=== PATIENT | female | born 1950 | race Two or more races ===

== ENCOUNTER 2020-04-15 12:42 | Outpatient (REF) | payer MEDICARE, MEDICAID, SELFPAY ==
--- NOTE | 2020-04-15 12:53 | MM_ITS ---
EXAMINATION: MM SCREENING DIGITAL BREAST TOMOSYNTHESIS, BILATERAL CLINICAL INFORMATION: Screening. Asymptomatic. Previous reports indicate history of benign right breast surgery. The lifetime risk of breast cancer based on the Tyrer-Cuzick Model is 4%. COMPARISON: Mammography: 08/28/18, 08/19/17, 08/05/16, 07/11/15 TECHNIQUE: Digital breast tomosynthesis is performed in both the craniocaudal and mediolateral oblique views along with computer-aided detection (CAD). Synthesized 2D images are generated from the tomosynthesis. FINDINGS: There are scattered areas of fibroglandular density (ACR BI-RADS breast composition Category b). Right breast: No suspicious mass. No new architectural distortion. No suspicious calcification. The architecture in the right breast is unchanged Left breast: There is a small focal asymmetry in the superficial upper outer left breast unchanged when compared to multiple previous studies. No new suspicious left breast finding MM/MM tomosynthesis screening BI IMPRESSION: No mammographic evidence of malignancy. ASSESSMENT: BI-RADS 2: Benign RECOMMENDATION: Routine annual mammography screening. This patient's information was entered into a reminder system with a target due date for their next mammogram.
== END 2020-04-15 12:43 | disposition home or self-care (01) ==
LOC: HO.MAMMO 12:42
PROVIDERS: Visit Provider Internal Medicine
DX: Z12.31 Encounter for screening mammogram for malignant neoplasm of breast (principal)
CPT/HCPCS: 77063; 77067

== ENCOUNTER 2020-06-06 09:27 | Outpatient (REF) | payer MEDICARE, MEDICAID, SELFPAY ==
[2020-06-06 10:10] LABS: MANUAL DIFF FLAG NO
[2020-06-06 10:12] LABS: Basophils Percent Auto 0.3 % (0-2); Eosinophils Absolute Auto 0.1 X10*3/uL (0.0-0.4); Eosinophils Percent Auto 0.9 % (0-4); Hematocrit 41.1 % (37-47); Hemoglobin 13.7 g/dl (12.0-16.0); Imm Gran Abs Auto 0.03 X10*3/uL (0.00-0.03); Imm Gran Pct Auto 0.3 % (0.0-0.4); Lymphocytes Absolute Auto 3.9 X10*3/uL (1.2-4.9); Lymphocytes Percent Auto 43.8 % (20-40); Mean Corpuscular HGB Conc 33.3 g/dl (31.0-35.0); Mean Corpuscular Hemoglobin 30.6 pg (27.0-33.0); Mean Corpuscular Volume 91.7 fL (80-98); Mean Platelet Volume 9.3 fL (9.4-12.3); Monocytes Absolute Auto 0.7 X10*3/uL (0.1-1.2); Monocytes Percent Auto 7.8 % (2-11); Neutrophils Absolute Auto 4.2 X10*3/uL (2.0-8.3); Neutrophils Percent Auto 46.9 % (45-73); Platelet Count 581 X10*3/uL (160-400); Red Blood Count 4.48 X10*6/uL (4.20-5.50); Red Cell Distribution Width 15.3 % (11.0-16.0); White Blood Count 8.9 X10*3/uL (4.8-10.8)
[2020-06-06 10:42] LABS: Alanine Aminotransferase 29 U/L (0-31); Albumin Level 4.1 g/dL (3.5-5.0); Alkaline Phosphatase 122 U/L (39-117); Anion Gap 14 (12-20); Aspartate Amino Transferase 20 U/L (5-31); Bilirubin Total 0.7 mg/dL (0.0-1.0); Blood Urea Nitrogen 27 mg/dL (9-16); Calcium 9.6 mg/dL (8.4-10.2); Carbon Dioxide 25 mmol/L (22-29); Chloride 106 mmol/L (96-108); Cholesterol 212 mg/dL; Estimated Glomerular Filt Rate 43; Glucose Fasting 96 mg/dL (60-99); HDL Cholesterol 50 mg/dL; LDL Cholesterol Calculated 135 mg/dl; Potassium 4.4 mmol/l (3.3-5.1); Sodium 141 mmol/L (135-145); Total Protein 7.7 g/dL (6.5-8.0); Triglycerides 137 mg/dL
[2020-06-06 11:03] LABS: Free T4 (Free Thyroxine) 1.15 ng/dL (0.71-1.85); Thyroid Stimulating Hormone 1.88 uIU/mL (0.32-4.0); Vitamin D 25-OH Total 59.6 ng/mL (>30)
[2020-06-09 15:37] LABS: Vitamin B12 829 pg/mL (200-900)
== END 2020-06-06 09:28 | disposition home or self-care (01) ==
LOC: HO.LAB 09:27
PROVIDERS: PCP Internal Medicine; Visit Provider Internal Medicine
DX: E78.00 Pure hypercholesterolemia, unspecified (principal); B35.1 Tinea unguium; I10 Essential (primary) hypertension
CPT/HCPCS: 36415; 80048; 80053; 80061; 82306; 82607; 82746; 84439; 84443; 85025

== ENCOUNTER → 2020-07-28 13:55 | Outpatient (BNV) | payer MEDICARE, MEDICAID, SELFPAY | PROVIDERS: PCP Internal Medicine; Visit Provider Internal Medicine | DX: D47.3 Essential (hemorrhagic) thrombocythemia (principal) | CPT/HCPCS: 99203; 99212; 99213; 99214; G2211 ==

== ENCOUNTER 2020-09-04 14:34 | Outpatient (REF) | payer MEDICARE, MEDICAID, SELFPAY ==
[2020-09-04 15:04] LABS: MANUAL DIFF FLAG NO
[2020-09-04 15:11] LABS: Basophils Percent Auto 0.4 % (0-2); Eosinophils Absolute Auto 0.1 X10*3/uL (0.0-0.4); Eosinophils Percent Auto 0.5 % (0-4); Hemoglobin 13.6 g/dl (12.0-16.0); Imm Gran Abs Auto 0.03 X10*3/uL (0.00-0.03); Imm Gran Pct Auto 0.3 % (0.0-0.4); Lymphocytes Absolute Auto 3.6 X10*3/uL (1.2-4.9); Lymphocytes Percent Auto 34.8 % (20-40); Mean Corpuscular HGB Conc 33.2 g/dl (31.0-35.0); Mean Corpuscular Hemoglobin 30.6 pg (27.0-33.0); Mean Corpuscular Volume 92.1 fL (80-98); Mean Platelet Volume 9.1 fL (9.4-12.3); Monocytes Absolute Auto 0.7 X10*3/uL (0.1-1.2); Platelet Count 627 X10*3/uL (160-400); Red Blood Count 4.45 X10*6/uL (4.20-5.50); Red Cell Distribution Width 15.4 % (11.0-16.0); White Blood Count 10.5 X10*3/uL (4.8-10.8)
[2020-09-04 15:33] LABS: Alanine Aminotransferase 30 U/L (0-31); Alkaline Phosphatase 106 U/L (39-117); Anion Gap 14 (12-20); Aspartate Amino Transferase 23 U/L (5-31); Bilirubin Total 0.4 mg/dL (0.0-1.0); Blood Urea Nitrogen 18 mg/dL (9-16); Calcium 9.7 mg/dL (8.4-10.2); Carbon Dioxide 25 mmol/L (22-29); Chloride 104 mmol/L (96-108); Estimated Glomerular Filt Rate 42; Glucose Random 101 mg/dL (60-115); Potassium 4.5 mmol/L (3.3-5.1); Sodium 138 mmol/L (135-145); Total Protein 7.7 g/dL (6.5-8.0)
== END 2020-09-04 14:35 | disposition home or self-care (01) ==
LOC: HO.LAB 14:34
PROVIDERS: PCP Internal Medicine; Visit Provider Internal Medicine
DX: N28.9 Disorder of kidney and ureter, unspecified (principal); D47.3 Essential (hemorrhagic) thrombocythemia
CPT/HCPCS: 36415; 80053; 85025

== ENCOUNTER → 2021-07-15 12:45 | Outpatient (BNVA) | payer MEDICARE, MEDICAID, SELFPAY | PROVIDERS: PCP Internal Medicine; Visit Provider Obstetrics & Gynecology | DX: N90.89 Other specified noninflammatory disorders of vulva and perineum (principal) | CPT/HCPCS: 99202 ==

== ENCOUNTER 2021-07-24 08:34 | Outpatient (REF) | payer MEDICARE, MEDICAID, SELFPAY ==
[2021-07-24 09:32] LABS: Basophils Absolute Auto 0.1 X10*3/uL (0.0-0.2); Basophils Percent Auto 0.6 % (0-2); Eosinophils Absolute Auto 0.1 X10*3/uL (0.0-0.4); Eosinophils Percent Auto 1.3 % (0-4); Hematocrit 43.6 % (37.0-47.0); Hemoglobin 14.1 g/dl (12.0-16.0); Imm Gran Abs Auto 0.01 X10*3/uL (0.00-0.03); Imm Gran Pct Auto 0.1 % (0.0-0.4); Immature Retic Fraction 17.6 % (3.0-15.9); Lymphocytes Absolute Auto 3.8 X10*3/uL (1.2-4.9); Lymphocytes Percent Auto 44.9 % (20-40); MANUAL DIFF FLAG SCAN; Mean Corpuscular HGB Conc 32.3 g/dl (31.0-35.0); Mean Corpuscular Hemoglobin 30.4 pg (27.0-33.0); Monocytes Absolute Auto 0.6 X10*3/uL (0.1-1.2); Monocytes Percent Auto 7.4 % (2-11); Neutrophils Absolute Auto 3.8 x10*3/uL (2.0-8.3); Neutrophils Percent Auto 45.7 % (45-73); PLT CLUMP 1; Red Blood Count 4.64 X10*6/uL (4.20-5.50); Red Cell Distribution Width 17.4 % (11.0-16.0); Reticulocyte Percent 1.9 % (0.5-1.8); Reticulocytes Absolute 0.089 X10*6/uL (0.026-0.095); SCAN SMEAR FLAG 1
[2021-07-24 09:50] LABS: Alanine Aminotransferase 33 U/L (0-31); Albumin Level 4.1 g/dL (3.5-5.0); Alkaline Phosphatase 107 U/L (39-117); Anion Gap 17 (12-20); Aspartate Amino Transferase 23 U/L (5-31); Bilirubin Total 0.7 mg/dL (0.0-1.0); Blood Urea Nitrogen 23 mg/dL (9-16); Calcium 10.4 mg/dL (8.4-10.2); Carbon Dioxide 24 mmol/L (22-29); Chloride 102 mmol/L (96-108); Cholesterol 215 mg/dL; Estimated Glomerular Filt Rate 45; Glucose Random 100 mg/dL (60-115); HDL Cholesterol 57 mg/dL; Iron 114 mcg/dL (30-160); LDL Cholesterol Calculated 143 mg/dl; Potassium 4.8 mmol/L (3.3-5.1); Sodium 138 mmol/L (135-145); Total Protein 7.8 g/dL (6.5-8.0); Triglycerides 77 mg/dL
[2021-07-24 10:04] LABS: Percent Iron Saturation 41 % (15-50); Total Iron Binding Capacity 275 mcg/dL (228-428); Unsaturated Iron Binding 161 ug/dL
[2021-07-24 10:08] LABS: Ferritin 61 ng/mL (10-250); Free T4 (Free Thyroxine) 1.24 ng/dL (0.71-1.85); Vitamin D 25-OH Total 55.1 ng/mL (>30)
[2021-07-24 10:13] LABS: Platelet Count 639 X10*3/uL (160-400); White Blood Count 8.4 X10*3/uL (4.8-10.8)
[2021-07-24 10:14] LABS: SLIDE REVIEW VERIFIED
[2021-07-24 10:20] LABS: Folate 18.8 ng/mL (> or = 4.0); Vitamin B12 845 pg/mL (200-900)
== END 2021-07-24 08:35 | disposition home or self-care (01) ==
LOC: HO.LAB 08:34
PROVIDERS: PCP Internal Medicine; Visit Provider Internal Medicine
DX: I10 Essential (primary) hypertension (principal); E78.00 Pure hypercholesterolemia, unspecified
CPT/HCPCS: 36415; 80053; 80061; 82306; 82607; 82728; 82746; 83540; 84439; 84443; 85025; 85045

== ENCOUNTER 2021-08-05 12:40 | Outpatient (REF) | payer MEDICARE, MEDICAID, SELFPAY | END 2021-08-05 12:41 | disposition home or self-care (01) | LOC: HO.LAB 12:40 | PROVIDERS: PCP Internal Medicine; Visit Provider Obstetrics & Gynecology | DX: N90.89 Other specified noninflammatory disorders of vulva and perineum (principal) | CPT/HCPCS: 56605; 88305; 88312 ==

== ENCOUNTER → 2021-08-20 14:33 | Outpatient (BNVA) | payer MEDICARE, MEDICAID, SELFPAY | PROVIDERS: PCP Internal Medicine; Visit Provider Obstetrics & Gynecology | DX: N90.89 Other specified noninflammatory disorders of vulva and perineum (principal) | CPT/HCPCS: 99212 ==

== ENCOUNTER 2021-10-01 13:10 | Outpatient (REF) | payer MEDICARE, MEDICAID, SELFPAY ==
--- NOTE | ~2021-10-01 | MM_ITS ---
EXAMINATION: BONE DENSITOMETRY CLINICAL INDICATION: Age-related osteoporosis without current pathological fracture. COMPARISON: Previous BD dated 02/14/2018 and baseline BD dated 10/21/2008. TECHNIQUE: Using a [employer] DXA System (software version: 13.1) manufactured by [employer], dual-energy x-ray absorptiometry was performed of the lumbar spine and left hip. The images are of good technical quality. Summary results are attached. FINDINGS: AP SPINE L1-L3 (excluding L4): The data of L1-L4 has been changed to exclude the L4 vertebral body, because degenerative changes at this level may cause overestimation of lumbar spine density. Current: BMD 0.994 g/cm2, Z-score -0.2, T-score -1.5, osteopenia, 3.5% increase from previous, 2.5% decrease from baseline (<5% change is not significant). Prior: BMD 0.960 g/cm2. Baseline: BMD 1.020 g/cm2. LEFT FEMUR, NECK: Current: BMD 0.940 g/cm2, Z-score 0.7, T-score -0.7, normal. Prior: BMD 0.949 g/cm2. Baseline: BMD 1.009 g/cm2. LEFT FEMUR, TOTAL: Current: BMD 1.033 g/cm2, Z-score 1.3, T-score 0.2, normal, 4.2% increase from previous, 1.3% decrease from baseline (<5% change is not significant). Prior: BMD 0.991 g/cm2. Baseline: BMD 1.047 g/cm2. IDENTIFIED RISK FACTORS: Thiazide. Menopause. HISTORY OF FRACTURE: None listed. MEDICATIONS: Vitamin D. MM/XR DEXA axial skeleton IMPRESSION: 1. DIAGNOSIS: Osteopenia based on the lowest T-score value of -1.5 in the lumbar spine applying World Health Organization criteria. 2. 10-YEAR FRACTURE RISK PREDICTION, FRAX: Major osteoporotic fracture (clinical spine, forearm, hip or shoulder) 4.4%. Hip fracture 0.4%. 3. Treatment Recommendations: NOF guidelines recommend consideration for treatment in postmenopausal women and men age 50 and older presenting with the following: -A hip or vertebral (clinical or morphometric) fracture. -T-score less than or equal to -2.5 at the femoral neck or spine after appropriate evaluation to exclude secondary causes. -Low bone mass at the hip or spine and a 10-year fracture probability by FRAX of greater than or equal to 3% for hip fracture or greater than or equal to 20% for major osteoporotic fracture based on the [place] adapted WHO algorithm. 4. Other Recommendations: All treatment decisions require clinical judgment and consideration of individual patient factors, including patient preferences, comorbidities, previous drug use, risk factors not captured in the FRAX model (e.g. frailty, falls, vitamin D deficiency, increased bone turnover, interval significant decline in bone density) and possible under or overestimation of fracture risk by FRAX. Additional medical evaluation for secondary cause of low bone mineral density may be appropriate. FUTURE SCAN RECOMMENDATION: People with diagnosed cases of osteoporosis or at high risk for fracture should have regular bone mineral density tests. For patients eligible for Medicare, routine testing is allowed once every 2 years. The testing frequency can be increased to one year for patients who have rapidly progressing disease, those who are receiving or discontinuing medical therapy to restore bone mass, or have additional risk factors.
--- NOTE | ~2021-10-01 | MM_ITS ---
EXAMINATION: MM SCREENING DIGITAL BREAST TOMOSYNTHESIS, BILATERAL CLINICAL INFORMATION: Screening. Asymptomatic. The lifetime risk of breast cancer based on the Tyrer-Cuzick Model is 3.8%. COMPARISON: Mammography: April 15, 2020 and studies dating back to October 28, 2011 TECHNIQUE: Digital breast tomosynthesis is performed in both the craniocaudal and mediolateral oblique views along with computer-aided detection (CAD). Synthesized 2D images are generated from the tomosynthesis. FINDINGS: The breasts are heterogeneously dense, which may obscure small masses (ACR BI-RADS breast composition Category c). There are no significant masses, abnormal calcifications, or other abnormalities. MM/MM tomosynthesis screening BI IMPRESSION: There are no significant changes from prior study. ASSESSMENT: BI-RADS 1: Negative RECOMMENDATION: Routine annual mammography screening. This patient's information was entered into a reminder system with a target due date for their next mammogram.
== END 2021-10-01 13:11 | disposition home or self-care (01) ==
LOC: HO.MAMMO 13:10
PROVIDERS: PCP Internal Medicine; Visit Provider Internal Medicine
DX: Z12.31 Encounter for screening mammogram for malignant neoplasm of breast (principal); M81.0 Age-related osteoporosis without current pathological fracture; Z79.899 Other long term (current) drug therapy; Z78.0 Asymptomatic menopausal state
CPT/HCPCS: 77063; 77067; 77080

== ENCOUNTER 2021-11-06 10:13 | Outpatient (REF) | payer MEDICARE, MEDICAID, SELFPAY ==
[2021-11-06 10:23] LABS: MANUAL DIFF FLAG NO
[2021-11-06 10:49] LABS: Basophils Percent Auto 0.3 % (0-2); Eosinophils Percent Auto 0.3 % (0-4); Hematocrit 39.3 % (37.0-47.0); Hemoglobin 13.4 g/dl (12.0-16.0); Imm Gran Abs Auto 0.02 X10*3/uL (0.00-0.03); Imm Gran Pct Auto 0.2 % (0.0-0.4); Lymphocytes Absolute Auto 2.5 X10*3/uL (1.2-4.9); Lymphocytes Percent Auto 27.9 % (20-40); Mean Corpuscular HGB Conc 34.1 g/dl (31.0-35.0); Mean Corpuscular Hemoglobin 33.1 pg (27.0-33.0); Mean Platelet Volume 9.4 fL (9.4-12.3); Monocytes Absolute Auto 0.5 X10*3/uL (0.1-1.2); Monocytes Percent Auto 5.4 % (2-11); Neutrophils Absolute Auto 5.9 x10*3/uL (2.0-8.3); Neutrophils Percent Auto 65.9 % (45-73); Platelet Count 498 X10*3/uL (160-400); Red Blood Count 4.05 X10*6/uL (4.20-5.50); Red Cell Distribution Width 16.5 % (11.0-16.0)
[2021-11-06 11:18] LABS: Alanine Aminotransferase 40 U/L (0-31); Alkaline Phosphatase 103 U/L (39-117); Anion Gap 12 (12-20); Aspartate Amino Transferase 23 U/L (5-31); Bilirubin Total 0.3 mg/dL (0.0-1.0); Blood Urea Nitrogen 18 mg/dL (9-16); Calcium 9.8 mg/dL (8.4-10.2); Carbon Dioxide 20 mmol/L (22-29); Chloride 111 mmol/L (96-108); Estimated Glomerular Filt Rate 47; Glucose Random 102 mg/dL (60-115); Potassium 4.4 mmol/L (3.3-5.1); Sodium 139 mmol/L (135-145); Total Protein 7.5 g/dL (6.5-8.0)
[2021-11-06 11:43] LABS: Free T4 (Free Thyroxine) 1.19 ng/dL (0.71-1.85); Thyroid Stimulating Hormone 1.22 uIU/mL (0.32-4.0)
== END 2021-11-06 10:14 | disposition home or self-care (01) ==
LOC: HO.LAB 10:13
PROVIDERS: PCP Internal Medicine; Visit Provider Internal Medicine
DX: F31.61 Bipolar disorder, current episode mixed, mild (principal)
CPT/HCPCS: 36415; 80053; 84439; 84443; 85025

== ENCOUNTER → 2021-11-12 13:48 | Outpatient (BNVA) | payer MEDICARE, MEDICAID, SELFPAY | PROVIDERS: PCP Internal Medicine; Visit Provider Surgery | DX: L02.211 Cutaneous abscess of abdominal wall (principal); L72.0 Epidermal cyst | CPT/HCPCS: 99202 ==

== ENCOUNTER 2021-12-17 08:23 | Outpatient (REF) | payer MEDICARE, MEDICAID, SELFPAY ==
[2021-12-17 08:44] LABS: MANUAL DIFF FLAG NO
[2021-12-17 08:47] LABS: Basophils Percent Auto 0.6 % (0-2); Eosinophils Absolute Auto 0.1 X10*3/uL (0.0-0.4); Eosinophils Percent Auto 1.4 % (0-4); Hematocrit 40.9 % (37.0-47.0); Hemoglobin 13.9 g/dl (12.0-16.0); Imm Gran Abs Auto 0.01 X10*3/uL (0.00-0.03); Imm Gran Pct Auto 0.2 % (0.0-0.4); Lymphocytes Percent Auto 48.4 % (20-40); Mean Corpuscular Hemoglobin 33.1 pg (27.0-33.0); Mean Corpuscular Volume 97.4 fL (80.0-98.0); Mean Platelet Volume 9.2 fL (9.4-12.3); Monocytes Absolute Auto 0.5 X10*3/uL (0.1-1.2); Monocytes Percent Auto 7.6 % (2-11); Neutrophils Absolute Auto 2.6 x10*3/uL (2.0-8.3); Neutrophils Percent Auto 41.8 % (45-73); Platelet Count 466 X10*3/uL (160-400); Red Cell Distribution Width 15.8 % (11.0-16.0); White Blood Count 6.2 X10*3/uL (4.8-10.8)
[2021-12-17 09:01] LABS: Estimated Average Glucose 97 mg/dL
[2021-12-17 09:32] LABS: Alanine Aminotransferase 34 U/L (0-31); Albumin Level 4.1 g/dL (3.5-5.0); Alkaline Phosphatase 105 U/L (39-117); Anion Gap 15 (12-20); Aspartate Amino Transferase 19 U/L (5-31); Bilirubin Total 0.8 mg/dL (0.0-1.0); Blood Urea Nitrogen 16 mg/dL (9-16); Calcium 9.8 mg/dL (8.4-10.2); Carbon Dioxide 22 mmol/L (22-29); Chloride 110 mmol/L (96-108); Cholesterol 200 mg/dL; Estimated Glomerular Filt Rate 49; Glucose Random 94 mg/dL (60-115); HDL Cholesterol 49 mg/dL; LDL Cholesterol Calculated 130 mg/dl; Potassium 4.7 mmol/L (3.3-5.1); Sodium 142 mmol/L (135-145); Total Protein 7.5 g/dL (6.5-8.0); Triglycerides 107 mg/dL
[2021-12-17 09:53] LABS: Free T4 (Free Thyroxine) 1.12 ng/dL (0.71-1.85); Thyroid Stimulating Hormone 2.57 uIU/mL (0.32-4.0)
[2021-12-17 13:15] LABS: Folate 17.7 ng/mL (> or = 4.0); Vitamin B12 742 pg/mL (200-900)
== END 2021-12-17 08:24 | disposition home or self-care (01) ==
LOC: HO.LAB 08:23
PROVIDERS: PCP Internal Medicine; Visit Provider Internal Medicine
DX: E83.52 Hypercalcemia (principal); E78.00 Pure hypercholesterolemia, unspecified
CPT/HCPCS: 36415; 80053; 80061; 82607; 82746; 83036; 84439; 84443; 85025

== ENCOUNTER 2022-01-12 12:32 | Outpatient (REF) | payer MEDICARE, MEDICAID, SELFPAY ==
[2022-01-12 12:40] VITALS: BP 124/68; PULSE 67; RESP 16; TEMP 36.7; O2SAT 97; BMI 32.1
--- NOTE | 2022-01-12 13:01 | W.PM.OPN ---
Operative Note Operative Note Date of Service: 01/12/22 Narrative: Patient presented for excision of an abdominal wall cyst. Examination today reveals no residual cyst in the abdominal wall therefore the surgery was canceled. She was instructed to call our office should the cyst reappear.
== END 2022-01-12 12:33 | disposition home or self-care (01) ==
LOC: HO.MS 12:32
PROVIDERS: PCP Internal Medicine; Visit Provider Surgery
DX: L72.0 Epidermal cyst (principal); Z53.8 Procedure and treatment not carried out for other reasons

== ENCOUNTER 2022-04-26 12:41 | Outpatient (REF) | payer MEDICARE, MEDICAID, SELFPAY ==
--- NOTE | ~2022-04-26 | XR_ITS ---
EXAMINATION: XR HAND, LEFT CLINICAL INFORMATION: Pain in fourth digit COMPARISON: None TECHNIQUE: PA, lateral, and oblique views of the left hand. FINDINGS: No fracture or dislocation. No radiopaque foreign body. No soft tissue swelling. XR/XR hand LT 2V IMPRESSION: No acute osseous abnormality.
== END 2022-04-26 12:42 | disposition home or self-care (01) ==
LOC: HO.XRAY 12:41
PROVIDERS: PCP Internal Medicine; Visit Provider Internal Medicine
DX: M79.645 Pain in left finger(s) (principal)
CPT/HCPCS: 73120

== ENCOUNTER 2022-06-24 12:36 | Outpatient (REF) | payer MEDICARE, MEDICAID, SELFPAY ==
--- NOTE | 2022-06-25 10:40 | MHC.AU.ATI ---
Adult Audiological Evaluation- Tinnitus Date of Visit: 06/24/22 Reason for Appointment: Right-sided intermittent tinnitus and noticeable difference in hearing between ears. Jennifer reported that in January 2022, she noticed a pulsing ringing sound in her right ear accompanied by a change in her hearing. Although the tinnitus is not always present, it is most prevalent in quiet environments and when she concentrates on it. Jennifer reported that it can be bothersome when it persists for longer periods of time. As for her hearing, Jennifer notices a slight difference between her ears and some times notices the television sounds distorted; otherwise, she does not notice significant hearing difficulties. Does patient feel they have a hearing loss?: Yes If Yes, Which Ear?: Right Ear When Was Hearing Difficulty First Noticed?: January 2022 Has hearing been tested previously?: No Hearing Handicap Inventory: HHIE SCORE: 6 Based on HHIE score, patient has: No perceived hearing handicap Ear History: Ear Deformity: None Reported Recent Ear Drainage: Both Ears Recent Ear Pain: None Reported Family History of Hearing Loss?: Yes: Paternal grandfather Recent Ear Infections: None Reported Ear Infections in Childhood: None Reported History of Ear Wax Buildup: Both Ears Previous Ear Surgery: None Reported Bothersome Tinnitus/Ringing/Noises in Ears: Right Ear Ear used on the phone: Left Ear Blocked/Full Sensation in Ear(s): Right Ear History of occupational noise exposure?: No History: No Medical History: Medical History: Blood Disorders - High platelets; High Blood Pressure Medication List: Hydroxyurea, Olanzapine, Clonazepam, Losartan, Metoprolol, Docusate, Aspirin, PreserVision Otoscopy: Right Ear: Unremarkable Left Ear: Unremarkable Tympanometry: Tympanometry performed due to: To assess integrity of the middle ear system Right Ear: Normal Middle Ear System (Type A) Left Ear: Normal Middle Ear System (Type A) Acoustic Reflexes: Ipsilateral Probe Right: Probe Left: 500 Hz: Present 500 Hz: Present 1000 Hz: Present 1000 Hz: Present 2000 Hz: Present 2000 Hz: Present 4000 Hz: Absent 4000 Hz: Absent Contralateral Probe Right: Probe Left: 500 Hz: Present 500 Hz: Present 1000 Hz: Elevated 1000 Hz: Present 2000 Hz: Elevated 2000 Hz: Present 4000 Hz: Absent 4000 Hz: Absent Hearing Evaluation: Transducer(s) Used: Insert Earphones Method: Conventional Audiometry Stimuli Used: Pure Tones Right Ear: Normal hearing 250-8000 Hz although slightly worse than the left ear 8388-2585 Hz Left Ear: Normal hearing 250-8000 Hz Speech Recognition Threshold (SRT): Method Used: Monitored Live Voice Stimuli Used: Spondee Words Right Ear: 10 dB HL Left Ear: 10 dB HL Word Discrimination: Method: Recorded Word Lists Used: Yi Word List Right Ear: 96 % correct at 50 dB HL Left Ear: 100% correct at 50 dB HL Tinnitus Assessment: Right Ear Tinnitus Match- Pitch/Frequency: 8000 Hz Tinnitus Match- Loudness: 30 dB HL Minimum Masking Level: 30 dB HL Interpretation of Results: Jennifer's hearing is within normal bilaterally; however, her right ear is slightly worse than her left ear. She reportedly experiences intermittent, pulsing, unilateral tinnitus on the right side accompanied by a noticeable difference in her hearing. Although she reported a positive complete measurement on residual inhibition testing, the intermittency of her tinnitus cannot be ruled out. Prior to minimum masking level and residual inhibition testing, Jennifer reported no perception of her tinnitus. After completing bone conduction testing, Jennifer reported her tinnitus returned, and MML and RI testing could be completed. Recommendations: Referral to Ear, Nose, and Throat due to asymmetric hearing and unilateral tinnitus. Audiological reevaluation in one year or sooner if a change in hearing is suspected. Diagnosis: Primary Diagnosis: H93.293 Abnormal Auditory Perception Secondary Diagnosis: H93.11 Tinnitus, Right Ear Signature: Provider: Mary Hayes, [facility]
== END 2022-06-24 12:37 | disposition home or self-care (01) ==
LOC: HO.SH 12:36
PROVIDERS: Visit Provider Internal Medicine
DX: Z01.118 Encounter for examination of ears and hearing with other abnormal findings (principal); H93.293 Other abnormal auditory perceptions, bilateral; H93.11 Tinnitus, right ear
CPT/HCPCS: 92550; 92557; 92625

== ENCOUNTER 2022-10-07 13:41 | Outpatient (REF) | payer MEDICARE, MEDICAID, SELFPAY ==
--- NOTE | ~2022-10-07 | MM_ITS ---
EXAMINATION: MM SCREENING DIGITAL BREAST TOMOSYNTHESIS, BILATERAL CLINICAL INFORMATION: Screening. Asymptomatic. The lifetime risk of breast cancer based on the Tyrer-Cuzick Model is 4%. COMPARISON: Mammography: 10/01/2021, 04/15/2020, 08/28/2018 TECHNIQUE: Digital breast tomosynthesis is performed in both the craniocaudal and mediolateral oblique views along with computer-aided detection (CAD). Synthesized 2D images are generated from the tomosynthesis. FINDINGS: There are scattered areas of fibroglandular density (ACR BI-RADS breast composition Category b). There are no significant masses, abnormal calcifications, or other abnormalities. Parenchymal pattern is similar to prior studies. There is no developing density or architectural abnormality. The axilla and skin contours are unremarkable. No significant changes. MM/MM tomosynthesis screening BI IMPRESSION: No mammographic evidence of malignancy. ASSESSMENT: BI-RADS 1: Negative RECOMMENDATION: Routine annual mammography screening. This patient's information was entered into a reminder system with a target due date for their next mammogram.
== END 2022-10-07 13:42 | disposition home or self-care (01) ==
LOC: HO.MAMMO 13:41
PROVIDERS: PCP Internal Medicine; Visit Provider Internal Medicine
DX: Z12.31 Encounter for screening mammogram for malignant neoplasm of breast (principal)
CPT/HCPCS: 77063; 77067

== ENCOUNTER 2022-10-29 08:07 | Outpatient (REF) | payer MEDICARE, MEDICAID, SELFPAY ==
[2022-10-29 08:22] LABS: MANUAL DIFF FLAG NO
[2022-10-29 08:38] LABS: Basophils Percent Auto 0.7 % (0-2); Eosinophils Percent Auto 0.7 % (0-4); Hematocrit 41.2 % (37.0-47.0); Imm Gran Abs Auto 0.01 X10*3/uL (0.00-0.03); Imm Gran Pct Auto 0.2 % (0.0-0.4); Immature Retic Fraction 18.5 % (3.0-15.9); Lymphocytes Absolute Auto 3.1 X10*3/uL (1.2-4.9); Lymphocytes Percent Auto 52.5 % (20-40); Mean Corpuscular Hemoglobin 34.9 pg (27.0-33.0); Mean Corpuscular Volume 102.7 fL (80.0-98.0); Mean Platelet Volume 9.5 fL (9.4-12.3); Monocytes Absolute Auto 0.5 X10*3/uL (0.1-1.2); Monocytes Percent Auto 7.8 % (2-11); Neutrophils Absolute Auto 2.3 x10*3/uL (2.0-8.3); Neutrophils Percent Auto 38.1 % (45-73); Platelet Count 396 X10*3/uL (160-400); Red Blood Count 4.01 X10*6/uL (4.20-5.50); Red Cell Distribution Width 14.3 % (11.0-16.0); Retic HGB Equivalent 39.6 pg (30.0-35.0); Reticulocyte Percent 1.7 % (0.5-1.8); Reticulocytes Absolute 0.068 X10*6/uL (0.026-0.095); White Blood Count 5.9 X10*3/uL (4.8-10.8)
[2022-10-29 09:19] LABS: Alanine Aminotransferase 26 U/L (0-31); Albumin Level 3.8 g/dL (3.5-5.0); Alkaline Phosphatase 84 U/L (39-117); Anion Gap 12 (12-20); Aspartate Amino Transferase 20 U/L (5-31); Bilirubin Total 0.7 mg/dL (0.0-1.0); Blood Urea Nitrogen 25 mg/dL (9-16); Calcium 9.8 mg/dL (8.4-10.2); Carbon Dioxide 23 mmol/L (22-29); Chloride 110 mmol/L (96-108); Cholesterol 207 mg/dL; Estimated Glomerular Filt Rate 52; Glucose Random 98 mg/dL (60-115); HDL Cholesterol 48 mg/dL; Iron 87 mcg/dL (30-160); LDL Cholesterol Calculated 140 mg/dl; Percent Iron Saturation 37 % (15-50); Potassium 4.3 mmol/L (3.3-5.1); Sodium 141 mmol/L (135-145); Total Iron Binding Capacity 238 mcg/dL (228-428); Total Protein 7.6 g/dL (6.5-8.0); Triglycerides 98 mg/dL; Unsaturated Iron Binding 151 ug/dL
[2022-10-29 09:27] LABS: Ferritin 87 ng/mL (10-250); Free T4 (Free Thyroxine) 1.12 ng/dL (0.71-1.85); Thyroid Stimulating Hormone 2.31 uIU/mL (0.32-4.0); Vitamin D 25-OH Total 52.6 ng/mL (>30)
[2022-10-29 09:50] LABS: Folate 15.6 ng/mL (> or = 4.0); Vitamin B12 991 pg/mL (200-900)
== END 2022-10-29 08:08 | disposition home or self-care (01) ==
LOC: HO.LAB 08:07
PROVIDERS: PCP Internal Medicine; Visit Provider Internal Medicine
DX: E78.00 Pure hypercholesterolemia, unspecified (principal); E55.9 Vitamin D deficiency, unspecified; D75.839 Thrombocytosis, unspecified; D64.9 Anemia, unspecified
CPT/HCPCS: 36415; 80053; 80061; 82306; 82607; 82728; 82746; 83540; 84439; 84443; 85025; 85045

== ENCOUNTER 2022-12-14 10:14 | Outpatient (AMB) | payer MEDICARE, MEDICAID, SELFPAY ==
--- NOTE | 2022-12-14 10:24 | MHC.OFFWIV ---
Intake Vital Signs 12/14/22 10:33 Height 5 ft 3 in Weight 183 lb 8 oz BMI 32.5 BP 132/80 Blood Pressure Location Lt brachial Position Sitting Respiration 14 Pulse 84 Pulse Source Pulse Oximeter Temp 98.0 F Temp Source Temporal Artery Scan Pulse Oximetry (%) 97 Oxygen Delivery Method Room Air Intake Visit Reasons: diarrhea x 9 days Intake Note: Patient reports having watery bowel movements x9-10 days. Patient reports having abdominal pain and swelling when trying to eat. Patient reports having a poor appetite and has recently been consuming foods such as cereal, apple juice and jello. Patient reports having diverticilitus in 2017. 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 Required: No Accompanied by: Self / Same As Patient Allergies fluoxetine [Prozac] Allergy (Unknown, Verified 12/14/22 10:35) Unknown hydralazine Allergy (Unknown, Verified 12/14/22 10:35) Unknown lisinopril Allergy (Unknown, Verified 12/14/22 10:35) Unknown lithium Allergy (Unknown, Verified 12/14/22 10:35) Unknown tizanidine Allergy (Unknown, Verified 12/14/22 10:35) Unknown hydrochlorothiazide Adverse Reaction (Intermediate, Verified 12/14/22 10:35) hyponatremia amlodipine Adverse Reaction (Unknown, Verified 12/14/22 10:35) urinary retendtion Do you need a note to return to daycare/school/sports/work: No HPI diarrhea x 9 days HPI Details 72 y/o female presents with complaints of diarrhea. She reports symptoms x9 days. Last bowel movement was this morning. Patient reports having abdominal pain and swelling when trying to eat. Patient reports having a poor appetite and has recently been consuming foods such as cereal, apple juice and jello. Patient reports having diverticilitus in 2017. [facility] Medical History (Updated 12/14/22 @ 10:17 by Panfilo Samuel MD) Abdominal wall abscess Abscess Age-related osteoporosis without current pathological fracture Asthma Bipolar disorder Breast cancer screening by mammogram Diverticulitis Epidermal inclusion cyst Finger pain, left Glaucoma Hypercalcemia Hypercholesterolemia Hypertension Macular degeneration Nontoxic multinodular goiter Obesity (BMI 30-39.9) Onychomycosis Osteopenia Renal insufficiency Ringing in ears Stye Vaginal cyst Surgical History H/O elbow surgery History of breast biopsy Family History (Updated 11/02/22 @ 12:54 by Arianna Lima CMA) Father CVD (cardiovascular disease) Myocardial infarction Mother No problems noted. Maternal Aunt Uterine cancer Family/Other Breast cancer Social History Household Members: Children Housing: Apartment Alcohol intake: never Patient Tobacco Use Status: Never used Tobacco e-Cigarette/Vaping Use: Never Used Second Hand Smoke Exposure: No service: No Current occupational status: retired Current occupational exposures/hazards: No Cognitive needs: No Hearing needs: No Vision needs: Yes Female Reproductive History Menstrual Age of Menarche: 13 Review of Systems Const Denies chills, Denies fatigue, Denies fever(s), Denies headache(s) and Denies weakness ENT Denies dizziness and Denies headache(s) Card Denies dyspnea Resp Denies cough, Denies dyspnea, Denies wheezing and Denies other (shortness of breath) GI Reports diarrhea Musc Denies numbness and Denies tingling Neuro Denies dizziness, Denies headache(s), Denies numbness, Denies tingling and Denies weakness Psych Denies anxiety and Denies depression Endo Denies fatigue Aller/Immun Denies wheezing Physical Exam Vital Signs: Last Vital Signs Temp 98.0 F 12/14/22 10:33 Pulse 84 12/14/22 10:33 Resp 14 12/14/22 10:33 BP 132/80 12/14/22 10:33 Pulse Ox 97 12/14/22 10:33 Oxygen Delivery Method Room Air 12/14/22 10:33 BMI result Body Mass Index 32.5 Const General: well developed; No acute distress Nutritional Appearance: well nourished Orientation/consciousness: patient oriented x3 HEENT Head: Yes normocephalic and Yes atraumatic Eyes General: appearance normal, both eyes and all related structures Pupils: Equal, round and reactive pupils present EOM: EOMs intact bilaterally Resp Effort & Inspection: normal respiratory effort Neuro General: patient oriented x3 and gait normal Cranial nerves: Yes Equal, round and reactive pupils present Psych Affect: normal affect Assessment & Plan Assessment & Plan (1) Diarrhea: Code(s): R19.7 - Diarrhea, unspecified Plan: Diarrhea x9 days. No blood in stool and no significant abdominal tenderness to palpation and no rebound. Will check blood work and stool studies Advised clear liquid diet with gradual advance of diet as tolerated thereafter. Call or return to office not improving Orders: Orders CDiff Gene PCR Today R19.7 - Diarrhea, unspecified GI Panel Today R19.7 - Diarrhea, unspecified Comprehensive [place]. Panel Fast Today R19.7 - Diarrhea, unspecified, Z00.00 - Encounter for general adult medical examination without abnormal findings Complete Blood Count Auto Diff Today R19.7 - Diarrhea, unspecified, Z00.00 - Encounter for general adult medical examination without abnormal findings Coding Level of Care Code Est Pt Level 3 (74110) Diagnoses Diarrhea R19.7
[2022-12-14 10:33] VITALS: BP 132/80; PULSE 84; RESP 14; TEMP 36.7; O2SAT 97; BMI 32.5
== END 2022-12-14 11:04 | disposition home or self-care (01) ==
PROVIDERS: PCP Internal Medicine; Visit Provider Family Medicine
DX: R19.7 Diarrhea, unspecified (principal)
CPT/HCPCS: 99213

== ENCOUNTER 2022-12-14 10:58 | Outpatient (REF) | payer MEDICARE, MEDICAID, SELFPAY ==
[2022-12-14 14:27] LABS: MANUAL DIFF FLAG NO
[2022-12-14 14:38] LABS: Basophils Percent Auto 0.3 % (0-2); Eosinophils Absolute Auto 0.1 X10*3/uL (0.0-0.4); Eosinophils Percent Auto 0.7 % (0-4); Hematocrit 42.7 % (37.0-47.0); Hemoglobin 14.2 g/dl (12.0-16.0); Imm Gran Abs Auto 0.02 X10*3/uL (0.00-0.03); Imm Gran Pct Auto 0.3 % (0.0-0.4); Lymphocytes Absolute Auto 2.6 X10*3/uL (1.2-4.9); Lymphocytes Percent Auto 38.2 % (20-40); Mean Corpuscular HGB Conc 33.3 g/dl (31.0-35.0); Mean Corpuscular Hemoglobin 34.7 pg (27.0-33.0); Mean Corpuscular Volume 104.4 fL (80.0-98.0); Mean Platelet Volume 9.7 fL (9.4-12.3); Monocytes Absolute Auto 0.5 X10*3/uL (0.1-1.2); Monocytes Percent Auto 7.2 % (2-11); Neutrophils Absolute Auto 3.7 x10*3/uL (2.0-8.3); Neutrophils Percent Auto 53.3 % (45-73); Platelet Count 450 X10*3/uL (160-400); Red Blood Count 4.09 X10*6/uL (4.20-5.50); Red Cell Distribution Width 14.4 % (11.0-16.0); White Blood Count 6.8 X10*3/uL (4.8-10.8)
[2022-12-14 14:48] LABS: Alanine Aminotransferase 35 U/L (0-31); Albumin Level 3.8 g/dL (3.5-5.0); Alkaline Phosphatase 96 U/L (39-117); Anion Gap 13 (12-20); Aspartate Amino Transferase 23 U/L (5-31); Bilirubin Total 0.4 mg/dL (0.0-1.0); Blood Urea Nitrogen 13 mg/dL (9-16); Calcium 9.8 mg/dL (8.4-10.2); Carbon Dioxide 23 mmol/L (22-29); Chloride 107 mmol/L (96-108); Estimated Glomerular Filt Rate 59; Glucose Fasting 96 mg/dL (60-99); Potassium 4.5 mmol/L (3.3-5.1); Sodium 138 mmol/L (135-145); Total Protein 7.5 g/dL (6.5-8.0)
== END 2022-12-14 10:59 | disposition home or self-care (01) ==
LOC: HO.WFDLDS 10:58
PROVIDERS: Visit Provider Family Medicine
DX: Z00.00 Encounter for general adult medical examination without abnormal findings (principal); R19.7 Diarrhea, unspecified
CPT/HCPCS: 36415; 80053; 85025

== ENCOUNTER 2023-02-17 12:40 | Outpatient (AMB) | payer MEDICARE, MEDICAID, SELFPAY ==
[2023-02-17 12:48] VITALS: BP 148/88; PULSE 75; O2SAT 98; BMI 32.4
--- NOTE | 2023-02-17 12:48 | A.OFFPC_ITS ---
Vital Signs 02/17/23 12:48 Height 5 ft 3 in Weight 183 lb BMI 32.4 BP 148/88 H Blood Pressure Location Lt brachial Position Sitting Pulse 75 Pulse Source Pulse Oximeter Pulse Oximetry (%) 98 Oxygen Delivery Method Room Air Intake Visit Reasons: 3 month f/u Allergies fluoxetine [Prozac] Allergy (Unknown, Verified 02/17/23 12:48) Unknown hydralazine Allergy (Unknown, Verified 02/17/23 12:48) Unknown lisinopril Allergy (Unknown, Verified 02/17/23 12:48) Unknown lithium Allergy (Unknown, Verified 02/17/23 12:48) Unknown tizanidine Allergy (Unknown, Verified 02/17/23 12:48) Unknown hydrochlorothiazide Adverse Reaction (Intermediate, Verified 02/17/23 12:48) hyponatremia amlodipine Adverse Reaction (Unknown, Verified 02/17/23 12:48) urinary retendtion Tobacco use date assessed: 07/23/22 Fall risk assessment: No Falls in past year Last assessed Fall Risk: 02/17/23 Dental Screening Dental Screen Date: 02/17/23 Did you have a dental visit in the last 12 months?: No Did you have a dental problem in the last 6 months where you did not have access to dental care?: No Was dental information given to patient?: No HPI 3 month f/u HPI Details 72-year-old obese female with hypertensi on asthma hypercholesterolemia bipolar disorder impaired glucose tolerance last seen in October 2022 for physical exam. Patient is here for follow-up. Colonoscopy is up-to-date mammograms up-to-date bone density is up-to-date. 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 Patient also has gone to the Urgent Center in December for diarrhea [facility] Medical History Abdominal wall abscess Abscess Age-related osteoporosis without current pathological fracture Asthma Bipolar disorder Breast cancer screening by mammogram Diverticulitis Epidermal inclusion cyst Finger pain, left Glaucoma Hypercalcemia Hypercholesterolemia Hypertension Macular degeneration Nontoxic multinodular goiter Obesity (BMI 30-39.9) Onychomycosis Osteopenia Renal insufficiency Ringing in ears Stye Vaginal cyst Surgical History H/O elbow surgery History of breast biopsy Family History Father CVD (cardiovascular disease) Myocardial infarction Mother No problems noted. Maternal Aunt Uterine cancer Family/Other Breast cancer Social History Household Members: Children Housing: Apartment Alcohol intake: never Patient Tobacco Use Status: Never used Tobacco e-Cigarette/Vaping Use: Never Used Second Hand Smoke Exposure: No service: No Current occupational status: retired Current occupational exposures/hazards: No Cognitive needs: No Hearing needs: No Vision needs: Yes Female Reproductive History Menstrual Age of Menarche: 13 Questionnaire PHQ-9 Over the last 2 weeks, how often have you been bothered by any of the following problems? 1. Little interest or pleasure in doing things: several days 2. Feeling down, depressed, or hopeless: several days 3. Trouble falling or staying asleep, or sleeping too much: not at all 4. Feeling tired or having little energy: not at all 5. Poor appetite or overeating: not at all 6. Feeling bad about yourself - or that you are a failure or have let yourself or your family down: not at all 7. Trouble concentrating on things, such as reading the newspaper or watching television: not at all 8. Moving or speaking so slowly that other people could have noticed. Or the opposite - being so fidgety or restless that you have been moving around a lot more than usual: not at all 9. Thoughts that you would be better off or of hurting yourself in some way: not at all Total score: 2 Depression Screening Interpretation: Negative Depression Screening Done: Yes Source: Developed by Drs. Juan Tsang, Loretta Mead, Pérez Anderson and colleagues, with an educational mirtha from [employer]. Thrive Questionnaire Date Thrive assessed: 07/23/22 AUDIT C Alcohol Use Questionnaire (AUDIT-C) 1. How often do you have a drink containing alcohol?: Never 2. How many drinks containing alcohol do you have on a typical day when you are drinking?: 1 or 2 (0) 3. How often do you have six or more drinks on one occasion?: Never Total Score: 0 Score Reviewed/Action Taken: No MAURI-7 AMB Questionnaire MAURI-7 Date MAURI - 7 assessed: 07/23/22 Source: Developed by Drs. Juan Tsang, Loretta Mead, Pérez Anderson and colleagues, with an educational mirtha from [employer]. Physical exam (Primary Care) Vital Signs: Last Vital Signs Pulse 75 02/17/23 12:48 BP 148/88 H 02/17/23 12:48 Pulse Ox 98 02/17/23 12:48 Oxygen Delivery Method Room Air 02/17/23 12:48 BMI result Body Mass Index 32.4 Tobacco/Smoking Status: Tobacco use Status Tobacco use date assessed 07/23/22 02/17/23 12:54 Patient Tobacco Use Status Never used Tobacco 02/17/23 12:54 e-Cigarette/Vaping Use Never Used 02/17/23 12:54 PHQ-9: PHQ-9 Score PHQ-9: Total score 2 02/17/23 12:56 Depression Screening Interpretation: Negative Thrive Assessment: Date of Thrive Assessment Date Thrive assessed 07/23/22 02/17/23 12:54 Const General: alert; No acute distress Eyes Conjunctivae: conjunctivae normal Resp Auscultation: clear to auscultation bilaterally Cardio Rate: regular rate Rhythm: regular rhythm GI Inspection: Yes normal to inspection Extrem General: Yes normal to inspection and No edema Office Procedures Flu Questionnaire Does the patient have a severe egg allergy?: No Does the patient have severe life threatening allergies?: No Does the patient have a fever or illness today?: No Has the patient ever had Guillain-[place] Syndrome?: No Has the patient ever had any past reaction to a flu shot?: No Immunizations flu vacc [id number] 6mos up(PF) 60 mcg(15 mcgx4)/0.5 mL IM syringe Performing Provider: Vipul Shahid MD Performing [facility] Administered by: Arianna Lima CMA on 02/17/23 12:57 Dose Route Admin Location Dispensed Lot Number Expiration Date NDC Graph[employer] Specialist 0.5 mL IM Left Deltoid 0.5 mL [id number] 11/06/23 81615-857-18 [employer] VIS Given Date VIS Provided VIS Publication Date 02/17/23 Single Vaccine 20 Eligibility Eligibility Date Funding Source Not [facility] Eligible 02/17/23 Private Assessment and Plan Assessment & Plan (1) Asthma: Code(s): J45.909 - Unspecified asthma, uncomplicated Qualifiers: Asthma severity: mild Asthma persistence: unspecified Asthma complication type: uncomplicated Qualified Code(s): J45.909 - Unspecified asthma, uncomplicated Plan: Continue with the inhaler (2) Hypertension: Code(s): I10 - Essential (primary) hypertension Qualifiers: Hypertension type: essential hypertension Qualified Code(s): I10 - Essential (primary) hypertension Plan: Continue with blood pressure medication. Decrease salt intake and exercise pa tient on losartan 100 mg once a day metoprolol 25 mg once a day (3) Obesity (BMI 30-39.9): Code(s): E66.9 - Obesity, unspecified Plan: Diet and exercise (4) Hypercholesterolemia: Code(s): E78.00 - Pure hypercholesterolemia, unspecified Plan: Avoid fried foods, chicken skin, eggs, butter margarine, pastries and meat. Be it pork or beef they have a lot of cholesterol LDL goal of less than 130 and triglyceride of less than 150 (5) Bipolar disorder: Comment: Social anxiety disorder [facility] every 2 weeks October 2019 Code(s): F31.9 - Bipolar disorder, unspecified Qualifiers: Active/Remission status: currently active Current bipolar episode type: mixed Current episode severity: mild Qualified Code(s): F31.61 - Bipolar disorder, current episode mixed, mild Plan: Continue with counseling and therapy (6) Thrombocytosis: Comment: Essential thrombocytosis Code(s): D47.3 - Essential (hemorrhagic) thrombocythemia Plan: Patient is being followed up by Hematology Oncology and has been placed on hydroxyurea and aspirin (7) Impaired glucose tolerance: Code(s): R73.02 - Impaired glucose tolerance (oral) Plan: Decrease the amount of carbohydrate intake, pasta, bread, rice and potatoes are all sugar and that is aside from all the sweet stuff, remember that fruits are good but they are Sweet also. (8) Diarrhea: Code(s): R19.7 - Diarrhea, unspecified Orders: Orders Influenza [id number] Immunization Today Z23 - Encounter for immunization Comprehensive Met. Panel 3 Months E78.00 - Pure hypercholesterolemia, unspecified Lipid Panel 3 Months E78.00 - Pure hypercholesterolemia, unspecified Hemoglobin A1c 3 Months R73.02 - Impaired glucose tolerance (oral) Medications: Refilled losartan 100 mg PO DAILY 90 tabs 3RF I10 - Essential (primary) hypertension metoprolol succinate ER 25 mg PO DAILY 90 days 90 tabs 3RF I10 - Essential (primary) hypertension docusate sodium (Colace) 200 mg (2 x 100 mg) PO BEDTIME 90 days 180 caps 3RF K59.00 - Constipation, unspecified Discontinued sennosides-docusate sodium 8.6-50 mg (Senna-S) Discontinued Reason: Patient Refused 2 tab-caps (2 x 8.6-50 mg) PO BEDTIME 30 days 60 tabs 7RF K59.00 - Constipation, unspecified Coding Level of Care Code Est Pt Level 4 (67136) Diagnoses Mild asthma without complication, unspecified whether persistent J45.909 Asthma severity: mild Asthma persistence: unspecified Asthma complication type: uncomplicated Essential hypertension I10 Hypertension type: essential hypertension Obesity (BMI 30-39.9) E66.9 Hypercholesterolemia E78.00 Bipolar disorder, current episode mixed, mild F31.61 Active/Remission status: currently active Current bipolar episode type: mixed Current episode severity: mild Thrombocytosis D47.3 Impaired glucose tolerance R73.02 Diarrhea R19.7 Additional Codes PHQ-9 - 69500 - PHQ-9 Billing: ([id number])
== END 2023-02-17 13:21 | disposition home or self-care (01) ==
PROVIDERS: PCP Internal Medicine; Visit Provider Internal Medicine
DX: J45.909 Unspecified asthma, uncomplicated (principal); F31.61 Bipolar disorder, current episode mixed, mild; E66.9 Obesity, unspecified; D47.3 Essential (hemorrhagic) thrombocythemia; Z23 Encounter for immunization; I10 Essential (primary) hypertension; E78.00 Pure hypercholesterolemia, unspecified; R73.02 Impaired glucose tolerance (oral); R19.7 Diarrhea, unspecified; Z68.32 Body mass index [BMI] 32.0-32.9, adult
CPT/HCPCS: 90471; 90686; 99214

== ENCOUNTER 2023-06-01 12:05 | Outpatient (AMB) | payer MEDICARE, MEDICAID, SELFPAY ==
[2023-06-01 12:15] VITALS: BP 130/76; PULSE 79; O2SAT 98; BMI 32.9
--- NOTE | 2023-06-01 12:15 | A.OFFPC_ITS ---
Vital Signs 06/01/23 12:15 06/01/23 12:41 Height 5 ft 3 in Weight 186 lb BMI 32.9 BP 130/76 170/100 H Blood Pressure Location Lt brachial Lt brachial Position Sitting Sitting Pulse 79 Pulse Source Pulse Oximeter Pulse Oximetry (%) 98 Oxygen Delivery Method Room Air Intake Visit Reasons: 3 Month F/U Allergies fluoxetine [Prozac] Allergy (Unknown, Verified 06/01/23 12:15) Unknown hydralazine Allergy (Unknown, Verified 06/01/23 12:15) Unknown lisinopril Allergy (Unknown, Verified 06/01/23 12:15) Unknown lithium Allergy (Unknown, Verified 06/01/23 12:15) Unknown tizanidine Allergy (Unknown, Verified 06/01/23 12:15) Unknown hydrochlorothiazide Adverse Reaction (Intermediate, Verified 06/01/23 12:15) hyponatremia amlodipine Adverse Reaction (Unknown, Verified 06/01/23 12:15) urinary retendtion Medication List - Last Reconciled 06/01/23 by Vipul Shhaid MD albuterol sulfate 90 mcg/actuation (Ventolin HFA) 2 puffs inhalation Q6H PRN ascorbate calcium (vitamin C) 500 mg PO DAILY aspirin 81 mg PO DAILY clonazepam (Klonopin) 1 mg PO DAILY docusate sodium (Colace) 200 mg (2 x 100 mg) PO BEDTIME 90 days hydrocortisone 2.5% (Proctosol HC) 1 appl ME BID-QID PRN hydroxyurea 500 mg PO DAILY lactulose 20 grams (30 mL) PO DAILY latanoprost 0.005% 1 drp ophthalmic (eye) DAILY losartan 100 mg PO DAILY metoprolol succinate ER 50 mg PO DAILY 90 days multivitamin 1 tab PO DAILY olanzapine (Zyprexa) 5 mg PO DAILY omega-3 fatty acids (Fish Oil Concentrate) 1,000 mg PO DAILY timolol maleate 0.5% (Timoptic) 1 drp ophthalmic (eye) BID vit C,M-Ab-ezxqe-lutein-zeaxan 250-90-40-1 mg (PreserVision AREDS-2) 1 tab PO BID Tobacco use date assessed: 06/01/23 Fall risk assessment: No Falls in past year Last assessed Fall Risk: 06/01/23 Dental Screening Dental Screen Date: 06/01/23 Did you have a dental visit in the last 12 months?: Yes Did you have a dental problem in the last 6 months where you did not have access to dental care?: No Was dental information given to patient?: Patient has dentist HPI 3 Month F/U HPI Details 72-year-old obese female with hypertensi on hypercholesterolemia bipolar disorder impaired glucose tolerance last seen in February 2023. Patient's colonoscopy is due mammograms up-to-date bone density is still up-to-date review of the notes had thrombocytosis and was sent to Hematology-Oncology had JAK2 mutation positive July 2020 patient was placed on Hydrea and aspirin diagnosis essential thrombocytosis. L arm pain and L breat pain. noted pulsation of the heart. cough 3 weeks , no fevers, , non prod, PFSH Medical History Abdominal wall abscess Abscess Age-related osteoporosis without current pathological fracture Asthma Bipolar disorder Breast cancer screening by mammogram Diverticulitis Epidermal inclusion cyst Finger pain, left Glaucoma Hypercalcemia Hypercholesterolemia Hypertension Macular degeneration Nontoxic multinodular goiter Obesity (BMI 30-39.9) Onychomycosis Osteopenia Renal insufficiency Ringing in ears Stye Vaginal cyst Surgical History H/O elbow surgery History of breast biopsy Family History Father CVD (cardiovascular disease) Myocardial infarction Mother No problems noted. Maternal Aunt Uterine cancer Family/Other Breast cancer Social History Household Members: Children Housing: Apartment Alcohol intake: never Patient Tobacco Use Status: Never used Tobacco e-Cigarette/Vaping Use: Never Used Second Hand Smoke Exposure: No service: No Current occupational status: retired Current occupational exposures/hazards: No Cognitive needs: No Hearing needs: No Vision needs: Yes Female Reproductive History Menstrual Age of Menarche: 13 Questionnaire PHQ-9 Over the last 2 weeks, how often have you been bothered by any of the following problems? 1. Little interest or pleasure in doing things: several days 2. Feeling down, depressed, or hopeless: several days 3. Trouble falling or staying asleep, or sleeping too much: not at all 4. Feeling tired or having little energy: not at all 5. Poor appetite or overeating: not at all 6. Feeling bad about yourself - or that you are a failure or have let yourself or your family down: not at all 7. Trouble concentrating on things, such as reading the newspaper or watching television: not at all 8. Moving or speaking so slowly that other people could have noticed. Or the opposite - being so fidgety or restless that you have been moving around a lot more than usual: not at all 9. Thoughts that you would be better off or of hurting yourself in some way: not at all Total score: 2 Depression Screening Interpretation: Negative Depression Screening Done: Yes Source: Developed by Drs. Juan Tsang, Loretta Mead, Pérez Anderson and colleagues, with an educational mirtha from [employer]. Thrive Questionnaire Date Thrive assessed: 06/01/23 I am a: Patient What is your living situation today?: I have a steady place to live Within the past 12 months, did the food you bought not last and you didn't have the money to get more?: Never true Within the past 12 months, did you worry whether your food would run out before you got money to buy more?: Never true Do you have trouble paying for medicines?: No Do you have trouble getting transportation to medical appointments?: No Do you have trouble paying your heating and electricity bill?: No Do you have trouble taking care of your child, family member or friend?: No Do you have trouble with day-to-day activities such as bathing, preparing meals, shopping, managing finances, etc.?: No Are you currently unemployed and looking for a job?: No Are you interested in more education?: No Currently or been in a relationship where the following occur: no concerns reported THRIVE Score: 0 AUDIT C Alcohol Use Questionnaire (AUDIT-C) 1. How often do you have a drink containing alcohol?: Never 2. How many drinks containing alcohol do you have on a typical day when you are drinking?: 1 or 2 (0) 3. How often do you have six or more drinks on one occasion?: Never Total Score: 0 Score Reviewed/Action Taken: No MAURI-7 AMB Questionnaire MAURI-7 Date MAURI - 7 assessed: 06/01/23 Feeling nervous, anxious, or on edge: 0 = Not at all Not being able to stop or control worryin = Not at all Worrying too much about different things: 0 = Not at all Trouble relaxin = Not at all Being so restless that it is hard to sit still: 0 = Not at all Becoming easily annoyed or irritable: 0 = Not at all Feeling afraid as if something awful might happen: 0 = Not at all Total MAURI-7 score (0-4 normal; 5-9 mild; 10-14 moderate; 15-21 severe): 0 Source: Developed by Drs. Juan Tsang, Loretta Mead, Pérez Anderson and colleagues, with an educational mirtha from [employer]. Physical exam (Primary Care) Vital Signs: Last Vital Signs Pulse 79 06/01/23 12:15 BP 130/76 06/01/23 12:15 Pulse Ox 98 06/01/23 12:15 Oxygen Delivery Method Room Air 06/01/23 12:15 BMI result Body Mass Index 32.9 Tobacco/Smoking Status: Tobacco use Status Tobacco use date assessed 06/01/23 06/01/23 12:21 Patient Tobacco Use Status Never used Tobacco 06/01/23 12:21 e-Cigarette/Vaping Use Never Used 06/01/23 12:21 PHQ-9: PHQ-9 Score PHQ-9: Total score 2 06/01/23 12:21 Depression Screening Interpretation: Negative Thrive Assessment: Date of Thrive Assessment Date Thrive assessed 06/01/23 06/01/23 12:21 Currently or been in a relationship where the following occur: no concerns reported Const General: alert; No acute distress Eyes Conjunctivae: conjunctivae normal Resp Auscultation: clear to auscultation bilaterally Cardio Rate: regular rate Rhythm: regular rhythm GI Inspection: Yes normal to inspection Extrem General: Yes normal to inspection and No edema Assessment and Plan Assessment & Plan (1) Impaired glucose tolerance: Code(s): R73.02 - Impaired glucose tolerance (oral) Plan: Decrease the amount of carbohydrate intake, pasta, bread, rice and potatoes are all sugar and that is aside from all the sweet stuff, remember that fruits are good but they are Sweet also. (2) Thrombocytosis: Comment: Essential thrombocytosis Code(s): D47.3 - Essential (hemorrhagic) thrombocythemia Plan: Patient is under Hematology-Oncology placed on hydroxyurea and aspirin (3) Obesity (BMI 30-39.9): Code(s): E66.9 - Obesity, unspecified Plan: Diet and exercise (4) Hypercholesterolemia: Code(s): E78.00 - Pure hypercholesterolemia, unspecified Plan: Avoid fried foods, chicken skin, eggs, butter margarine, pastries and meat. Be it pork or beef they have a lot of cholesterol LDL goal of less than 130 and triglyceride of less than 150 (5) Hypertension: Code(s): I10 - Essential (primary) hypertension Qualifiers: Hypertension type: essential hypertension Qualified Code(s): I10 - Essential (primary) hypertension Plan: Continue with blood pressure medication. Decrease salt intake and exercise presently on metoprolol 25 mg once a day losartan 100 mg once a day concern that the blood pressure here is elevated will adjust medication. (6) Asthma: Code(s): J45.909 - Unspecified asthma, uncomplicated Qualifiers: Asthma severity: mild Asthma persistence: unspecified Asthma complication type: uncomplicated Qualified Code(s): J45.909 - Unspecified asthma, uncomplicated Plan: Stable no inhalers (7) Bipolar disorder: Comment: Social anxiety disorder [facility] every [facility] weeks October 2019 Code(s): F31.9 - Bipolar disorder, unspecified Qualifiers: Active/Remission status: currently active Current bipolar episode type: mixed Current episode severity: mild Qualified Code(s): F31.61 - Bipolar disorder, current episode mixed, mild Plan: Continue to follow-up with counseling and therapy Medications: New albuterol sulfate 90 mcg/actuation (Ventolin HFA) 2 puffs inhalation Q6H PRN 8.5 grams 0RF shortness of breath or wheezing J45.909 - Unspecified asthma, uncomplicated Changed From metoprolol succinate ER 25 mg PO DAILY 90 days 90 tabs 3RF I10 - Essential (primary) hypertension To metoprolol succinate ER 50 mg PO DAILY 90 days 90 tabs 3RF I10 - Essential (primary) hypertension Refilled metoprolol succinate ER 50 mg PO DAILY 90 days 90 tabs 3RF I10 - Essential (primary) hypertension losartan 100 mg PO DAILY 90 tabs 3RF I10 - Essential (primary) hypertension docusate sodium (Colace) 200 mg (2 x 100 mg) PO BEDTIME 90 days 180 caps 3RF K59.00 - Constipation, unspecified Coding Level of Care Code Est Pt Level 4 (31433) Diagnoses Impaired glucose tolerance R73.02 Thrombocytosis D47.3 Obesity (BMI 30-39.9) E66.9 Hypercholesterolemia E78.00 Essential hypertension I10 Hypertension type: essential hypertension Mild asthma without complication, unspecified whether persistent J45.909 Asthma severity: mild Asthma persistence: unspecified Asthma complication type: uncomplicated Bipolar disorder, current episode mixed, mild F31.61 Active/Remission status: currently active Current bipolar episode type: mixed Current episode severity: mild Additional Codes PHQ-9 - 87465 - PHQ-9 Billing: ([id number])
[2023-06-01 12:41] VITALS: BP 170/100
== END 2023-06-01 12:49 | disposition home or self-care (01) ==
PROVIDERS: PCP Internal Medicine; Visit Provider Internal Medicine
DX: R73.02 Impaired glucose tolerance (oral) (principal); D47.3 Essential (hemorrhagic) thrombocythemia; F31.61 Bipolar disorder, current episode mixed, mild; E78.00 Pure hypercholesterolemia, unspecified; J45.909 Unspecified asthma, uncomplicated
CPT/HCPCS: 99214

== ENCOUNTER 2023-08-05 14:11 | Outpatient (AMB) | payer MEDICARE, MEDICAID, SELFPAY ==
[2023-08-05 14:36] VITALS: BP 148/92; PULSE 62; O2SAT 97; BMI 32.9
--- NOTE | 2023-08-05 14:37 | MHC.PC.OV ---
Vital Signs 08/05/23 14:36 08/05/23 15:23 Height 5 ft 3 in Weight 186 lb 0.2 oz BMI 32.9 BP 148/92 H 134/80 Blood Pressure Location Lt brachial Lt brachial Position Sitting Sitting Pulse 62 Pulse Source Pulse Oximeter Pulse Oximetry (%) 97 Oxygen Delivery Method Room Air Intake Visit Reasons: Hypertension Intake Note: Patient is here to follow up on HTN Director Of Curriculum And Instruction Required: No Allergies fluoxetine [Prozac] Allergy (Unknown, Verified 08/05/23 14:36) Unknown hydralazine Allergy (Unknown, Verified 08/05/23 14:36) Unknown lisinopril Allergy (Unknown, Verified 08/05/23 14:36) Unknown lithium Allergy (Unknown, Verified 08/05/23 14:36) Unknown tizanidine Allergy (Unknown, Verified 08/05/23 14:36) Unknown hydrochlorothiazide Adverse Reaction (Intermediate, Verified 08/05/23 14:36) hyponatremia nifedipine Adverse Reaction (Intermediate, Verified 08/05/23 14:36) Headache amlodipine Adverse Reaction (Unknown, Verified 08/05/23 14:36) urinary retendtion Tobacco use date assessed: 08/05/23 Fall risk assessment: No Falls in past year Last assessed Fall Risk: 08/05/23 Dental Screening Dental Screen Date: 06/01/23 HPI Hypertension HPI Details 72-year-old obese female with impaired glucose tolerance hypertension hypercholesterolemia asthma bipolar disorder coming in for follow-up. Last seen in May 2023. Patient's colonoscopy is due this year, mammogram is up-to-date bone density is up-to-date. [facility] Medical History Abdominal wall abscess Abscess Age-related osteoporosis without current pathological fracture Asthma Bipolar disorder Breast cancer screening by mammogram Diverticulitis Epidermal inclusion cyst Finger pain, left Glaucoma Hypercalcemia Hypercholesterolemia Hypertension Macular degeneration Nontoxic multinodular goiter Obesity (BMI 30-39.9) Onychomycosis Osteopenia Renal insufficiency Ringing in ears Stye Vaginal cyst Surgical History H/O elbow surgery History of breast biopsy Family History Father CVD (cardiovascular disease) Myocardial infarction Mother No problems noted. Maternal Aunt Uterine cancer Family/Other Breast cancer Social History Household Members: Children Housing: Apartment Alcohol intake: never Patient Tobacco Use Status: Never used Tobacco e-Cigarette/Vaping Use: Never Used Second Hand Smoke Exposure: No service: No Current occupational status: retired Current occupational exposures/hazards: No Cognitive needs: No Hearing needs: No Vision needs: Yes Female Reproductive History Menstrual Age of Menarche: 13 Questionnaire Thrive Questionnaire Date Thrive assessed: 06/01/23 AUDIT C Alcohol Use Questionnaire (AUDIT-C) 1. How often do you have a drink containing alcohol?: Never 2. How many drinks containing alcohol do you have on a typical day when you are drinking?: 1 or 2 (0) 3. How often do you have six or more drinks on one occasion?: Never Total Score: 0 Score Reviewed/Action Taken: No MAURI-7 AMB Questionnaire MAURI-7 Date MAURI - 7 assessed: 06/01/23 Source: Developed by Drs. Juan Tsang, Loretta Mead, Pérez Anderson and colleagues, with an educational mirtha from [employer]. Physical exam (Primary Care) Vital Signs: Last Vital Signs Pulse 62 08/05/23 14:36 BP 148/92 H 08/05/23 14:36 Pulse Ox 97 08/05/23 14:36 Oxygen Delivery Method Room Air 08/05/23 14:36 BMI result Body Mass Index 32.9 Tobacco/Smoking Status: Tobacco use Status Tobacco use date assessed 08/05/23 08/05/23 14:38 Patient Tobacco Use Status Never used Tobacco 08/05/23 14:38 e-Cigarette/Vaping Use Never Used 08/05/23 14:38 Thrive Assessment: Date of Thrive Assessment Date Thrive assessed 06/01/23 08/05/23 14:38 Const General: alert; No acute distress Eyes Conjunctivae: conjunctivae normal Resp Auscultation: clear to auscultation bilaterally Cardio Rate: regular rate Rhythm: regular rhythm GI Inspection: Yes normal to inspection Extrem General: Yes normal to inspection and No edema Assessment and Plan Assessment & Plan (1) Colon cancer screening: Code(s): Z12.11 - Encounter for screening for malignant neoplasm of colon Plan: Patient is reminded about colonoscopy (2) Impaired glucose tolerance: Code(s): R73.02 - Impaired glucose tolerance (oral) Plan: Decrease the amount of carbohydrate intake, pasta, bread, rice and potatoes are all sugar and that is aside from all the sweet stuff, remember that fruits are good but they are Sweet also. Will request for testing in 3 months (3) Hypercholesterolemia: Code(s): E78.00 - Pure hypercholesterolemia, unspecified Plan: Avoid fried foods, chicken skin, eggs, butter margarine, pastries and meat. Be it pork or beef they have a lot of cholesterol LDL goal of less than 130 and triglyceride of less than 150 (4) Obesity (BMI 30-39.9): Code(s): E66.9 - Obesity, unspecified Plan: Diet and exercise (5) Hypertension: Code(s): I10 - Essential (primary) hypertension Qualifiers: Hypertension type: essential hypertension Qualified Code(s): I10 - Essential (primary) hypertension Plan: Continue with blood pressure medication. Decrease salt intake and exercise patient on losartan 100 mg once a day metoprolol 100 mg once a day. happy BP has come down. (6) Asthma: Code(s): J45.909 - Unspecified asthma, uncomplicated Qualifiers: Asthma severity: mild Asthma persistence: unspecified Asthma complication type: uncomplicated Qualified Code(s): J45.909 - Unspecified asthma, uncomplicated Plan: Continue with inhaler as needed (7) Bipolar disorder: Comment: Social anxiety disorder [facility] every 2 weeks October 2019 Code(s): F31.9 - Bipolar disorder, unspecified Qualifiers: Active/Remission status: currently active Current bipolar episode type: mixed Current episode severity: mild Qualified Code(s): F31.61 - Bipolar disorder, current episode mixed, mild Plan: Continue with counseling and therapy. (8) Thrombocytosis: Comment: Essential thrombocytosis Code(s): D47.3 - Essential (hemorrhagic) thrombocythemia Plan: Patient is on Hydrea. Orders: Orders Complete Blood Count Auto Diff 3 Months E78.00 - Pure hypercholesterolemia, unspecified Free T4 (Free Thyroxine) 3 Months E78.00 - Pure hypercholesterolemia, unspecified Lipid Panel 3 Months E78.00 - Pure hypercholesterolemia, unspecified Comprehensive Met. Panel 3 Months E78.00 - Pure hypercholesterolemia, unspecified Thyroid Stimulating Hormone 3 Months E78.00 - Pure hypercholesterolemia, unspecified Hemoglobin A1c 3 Months E78.00 - Pure hypercholesterolemia, unspecified Vitamin B12 and Folate 3 Months E78.00 - Pure hypercholesterolemia, unspecified Vitamin D 25-OH Total 3 Months E78.00 - Pure hypercholesterolemia, unspecified Referrals Gastroenterology Referral Z12.11 - Encounter for screening for malignant neoplasm of colon Coding Level of Care Code Est Pt Level 4 (81246) Diagnoses Colon cancer screening Z12.11 Impaired glucose tolerance R73.02 Hypercholesterolemia E78.00 Obesity (BMI 30-39.9) E66.9 Essential hypertension I10 Hypertension type: essential hypertension Mild asthma without complication, unspecified whether persistent J45.909 Asthma severity: mild Asthma persistence: unspecified Asthma complication type: uncomplicated Bipolar disorder, current episode mixed, mild F31.61 Active/Remission status: currently active Current bipolar episode type: mixed Current episode severity: mild Thrombocytosis D47.3
[2023-08-05 15:23] VITALS: BP 134/80
== END 2023-08-05 15:31 | disposition home or self-care (01) ==
PROVIDERS: PCP Internal Medicine; Visit Provider Internal Medicine
DX: R73.02 Impaired glucose tolerance (oral) (principal); D47.3 Essential (hemorrhagic) thrombocythemia; F31.61 Bipolar disorder, current episode mixed, mild; Z12.11 Encounter for screening for malignant neoplasm of colon; E78.00 Pure hypercholesterolemia, unspecified; E66.9 Obesity, unspecified; I10 Essential (primary) hypertension; J45.909 Unspecified asthma, uncomplicated
CPT/HCPCS: 99214

== ENCOUNTER 2023-10-10 13:17 | Outpatient (REF) | payer MEDICARE, MEDICAID, SELFPAY ==
--- NOTE | ~2023-10-10 | MM_ITS ---
EXAMINATION: MM SCREENING DIGITAL BREAST TOMOSYNTHESIS, BILATERAL CLINICAL INFORMATION: Screening. Asymptomatic. COMPARISON: Mammography: This study is compared with prior exams dating back to 2018. TECHNIQUE: Digital breast tomosynthesis is performed in both the craniocaudal and mediolateral oblique views along with computer-aided detection (CAD). Synthesized 2D images are generated from the tomosynthesis. FINDINGS: There are scattered areas of fibroglandular density (ACR BI-RADS breast composition Category b). There are no significant masses, abnormal calcifications, or other abnormalities. Few, bilateral benign calcifications are present. MM/MM tomosynthesis screening BI IMPRESSION: No mammographic evidence of malignancy. ASSESSMENT: BI-RADS BI-RADS 2 - Benign Findings RECOMMENDATION: Routine annual mammography screening. 1 year F/U This examination should not preclude the clinical evaluation of a suspicious palpable abnormality. This patient's information was entered into a reminder system with a target due date for their next mammogram.
== END 2023-10-10 13:18 | disposition home or self-care (01) ==
LOC: HO.MAMMO 13:17
PROVIDERS: PCP Internal Medicine; Visit Provider Internal Medicine
DX: Z12.31 Encounter for screening mammogram for malignant neoplasm of breast (principal)
CPT/HCPCS: 77063; 77067

== ENCOUNTER → 2023-10-10 14:00 | Outpatient (BNV) | payer MEDICARE, MEDICAID, SELFPAY | PROVIDERS: PCP Internal Medicine; Visit Provider Radiology Diagnostic Radiology | DX: Z12.31 Encounter for screening mammogram for malignant neoplasm of breast (principal) | CPT/HCPCS: 77063; 77067 ==

== ENCOUNTER 2023-10-31 07:55 | Outpatient (REF) | payer MEDICARE, MEDICAID, SELFPAY ==
[2023-10-31 08:07] LABS: MANUAL DIFF FLAG NO
[2023-10-31 08:40] LABS: Basophils Percent Auto 0.7 % (0-2); Eosinophils Absolute Auto 0.1 X10*3/uL (0.0-0.4); Eosinophils Percent Auto 0.9 % (0-4); Hemoglobin 13.9 g/dl (12.0-16.0); Imm Gran Abs Auto 0.01 X10*3/uL (0.00-0.03); Imm Gran Pct Auto 0.2 % (0.0-0.4); Lymphocytes Absolute Auto 2.2 X10*3/uL (1.2-4.9); Lymphocytes Percent Auto 39.9 % (20-40); Mean Corpuscular HGB Conc 33.9 g/dl (31.0-35.0); Mean Corpuscular Hemoglobin 35.1 pg (27.0-33.0); Mean Corpuscular Volume 103.5 fL (80.0-98.0); Mean Platelet Volume 9.7 fL (9.4-12.3); Monocytes Absolute Auto 0.5 X10*3/uL (0.1-1.2); Monocytes Percent Auto 8.8 % (2-11); Neutrophils Absolute Auto 2.7 x10*3/uL (2.0-8.3); Neutrophils Percent Auto 49.5 % (45-73); Platelet Count 392 X10*3/uL (160-400); Red Blood Count 3.96 X10*6/uL (4.20-5.50); Red Cell Distribution Width 14.3 % (11.0-16.0); White Blood Count 5.4 X10*3/uL (4.8-10.8)
[2023-10-31 09:00] LABS: Estimated Average Glucose 100 mg/dL; Hemoglobin A1c % 5.1 % (<6.0)
[2023-10-31 09:14] LABS: Alanine Aminotransferase 40 U/L (0-31); Albumin Level 3.8 g/dL (3.5-5.0); Alkaline Phosphatase 81 U/L (39-117); Anion Gap 12 (12-20); Aspartate Amino Transferase 26 U/L (5-31); Bilirubin Total 0.6 mg/dL (0.0-1.0); Blood Urea Nitrogen 23 mg/dL (9-16); Calcium 9.8 mg/dL (8.4-10.2); Carbon Dioxide 21 mmol/L (22-29); Chloride 110 mmol/L (96-108); Cholesterol 197 mg/dL (<200); Estimated Glomerular Filt Rate 51; Glucose Random 110 mg/dL (60-115); HDL Cholesterol 51 mg/dL (>40); LDL Cholesterol Calculated 130 mg/dL (<100); Potassium 4.5 mmol/L (3.3-5.1); Sodium 138 mmol/L (135-145); Total Protein 7.5 g/dL (6.5-8.0); Triglycerides 83 mg/dL (<150)
[2023-10-31 09:32] LABS: Thyroid Stimulating Hormone 2.15 uIU/mL (0.32-4.0); Vitamin D 25-OH Total 49.3 ng/mL (>30)
[2023-10-31 09:33] LABS: Folate 13.7 ng/mL (> or = 4.0); Vitamin B12 855 pg/mL (200-900)
== END 2023-10-31 07:56 | disposition home or self-care (01) ==
LOC: HO.LAB 07:55
PROVIDERS: PCP Internal Medicine; Visit Provider Internal Medicine
DX: E78.00 Pure hypercholesterolemia, unspecified (principal); R73.02 Impaired glucose tolerance (oral)
CPT/HCPCS: 36415; 80053; 80061; 82306; 82607; 82746; 83036; 84439; 84443; 85025

== ENCOUNTER 2023-11-03 12:54 | Outpatient (AMB) | payer MEDICARE, MEDICAID, SELFPAY ==
[2023-11-03 12:55] VITALS: BP 130/78; PULSE 59; O2SAT 98; BMI 33.8
--- NOTE | 2023-11-03 12:55 | A.OFFPC_ITS ---
Vital Signs 11/03/23 12:55 Height 5 ft 3 in Weight 191 lb BMI 33.8 BP 130/78 Blood Pressure Location Lt brachial Position Sitting Pulse 59 Pulse Source Pulse Oximeter Pulse Oximetry (%) 98 Oxygen Delivery Method Room Air Intake Visit Reasons: pe Intake Note: Patient is here today for a physical. Supervisor Advice Required: No Allergies fluoxetine [Prozac] Allergy (Unknown, Verified 11/03/23 12:56) Unknown hydralazine Allergy (Unknown, Verified 11/03/23 12:56) Unknown lisinopril Allergy (Unknown, Verified 11/03/23 12:56) Unknown lithium Allergy (Unknown, Verified 11/03/23 12:56) Unknown tizanidine Allergy (Unknown, Verified 11/03/23 12:56) Unknown hydrochlorothiazide Adverse Reaction (Intermediate, Verified 11/03/23 12:56) hyponatremia nifedipine Adverse Reaction (Intermediate, Verified 11/03/23 12:56) Headache amlodipine Adverse Reaction (Unknown, Verified 11/03/23 12:56) urinary retendtion Medication List - Last Reconciled 11/03/23 by Vipul Shahid, albuterol sulfate 90 mcg/actuation (Ventolin HFA) 2 puffs inhalation Q6H PRN ascorbate calcium (vitamin C) 500 mg PO DAILY aspirin 81 mg PO DAILY clonazepam (Klonopin) 1 mg PO DAILY docusate sodium (Colace) 200 mg (2 x 100 mg) PO BEDTIME 90 days hydrocortisone 2.5% (Proctosol HC) 1 appl [place] BID-QID PRN hydroxyurea 500 mg PO DAILY lactulose 20 grams (30 mL) PO DAILY latanoprost 0.005% 1 drp ophthalmic (eye) DAILY losartan 100 mg PO DAILY metoprolol succinate ER 100 mg PO DAILY 90 days multivitamin 1 tab PO DAILY olanzapine (Zyprexa) 5 mg PO DAILY omega-3 fatty acids (Fish Oil Concentrate) 1,000 mg PO DAILY timolol maleate 0.5% (Timoptic) 1 drp ophthalmic (eye) BID vit C,M-Ip-bpywv-lutein-zeaxan 250-90-40-1 mg (PreserVision AREDS-2) 1 tab PO BID Tobacco use date assessed: 08/05/23 Fall risk assessment: No Falls in past year Last assessed Fall Risk: 11/03/23 Dental Screening Dental Screen Date: 11/03/23 Did you have a dental visit in the last 12 months?: No Did you have a dental problem in the last 6 months where you did not have access to dental care?: No HPI pe HPI Details 73-year-old obese female with a history of impaired glucose tolerance hypercholesterolemia hypertension, bipolar disorder, asthma and thrombocytosis on Hydrea last seen in 07/27/2023. Patient is here for physical exam. Colonoscopy due this year mammogram is up-to-date bone density is due this year. Patient did see Hematology for the thrombocytosis JAK2 mutation positive 2020 on hydroxyurea and baby aspirin. problem with patient is legally blind. [facility] Medical History Abdominal wall abscess Abscess Age-related osteoporosis without current pathological fracture Asthma Bipolar disorder Breast cancer screening by mammogram Diverticulitis Epidermal inclusion cyst Finger pain, left Glaucoma Hypercalcemia Hypercholesterolemia Hypertension Macular degeneration Nontoxic multinodular goiter Obesity (BMI 30-39.9) Onychomycosis Osteopenia Renal insufficiency Ringing in ears Stye Vaginal cyst Surgical History H/O elbow surgery History of breast biopsy Family History Father CVD (cardiovascular disease) Myocardial infarction Mother No problems noted. Maternal Aunt Uterine cancer Family/Other Breast cancer Social History Household Members: Children Housing: Apartment Alcohol intake: never Patient Tobacco Use Status: Never used Tobacco e-Cigarette/Vaping Use: Never Used Second Hand Smoke Exposure: No service: No Current occupational status: retired Current occupational exposures/hazards: No Cognitive needs: No Hearing needs: No Vision needs: Yes Female Reproductive History Menstrual Age of Menarche: 13 Questionnaire PHQ-9 Over the last 2 weeks, how often have you been bothered by any of the following problems? 1. Little interest or pleasure in doing things: not at all 2. Feeling down, depressed, or hopeless: not at all 3. Trouble falling or staying asleep, or sleeping too much: not at all 4. Feeling tired or having little energy: not at all 5. Poor appetite or overeating: not at all 6. Feeling bad about yourself - or that you are a failure or have let yourself or your family down: not at all 7. Trouble concentrating on things, such as reading the newspaper or watching television: not at all 8. Moving or speaking so slowly that other people could have noticed. Or the opposite - being so fidgety or restless that you have been moving around a lot more than usual: not at all 9. Thoughts that you would be better off or of hurting yourself in some way: not at all Total score: 0 Depression Screening Interpretation: Negative Depression Screening Done: Yes 55402 - PHQ-9 Billing: Yes Source: Developed by Drs. Juan Tsang, Loretta Mead, Pérez Anderson and colleagues, with an educational mirtha from [employer]. Thrive Questionnaire Date Thrive assessed: 06/01/23 I am a: Patient What is your living situation today?: I have a steady place to live Within the past 12 months, did the food you bought not last and you didn't have the money to get more?: Never true Within the past 12 months, did you worry whether your food would run out before you got money to buy more?: Never true Do you have trouble paying for medicines?: No Do you have trouble getting transportation to medical appointments?: No Do you have trouble paying your heating and electricity bill?: No Do you have trouble taking care of your child, family member or friend?: No Do you have trouble with day-to-day activities such as bathing, preparing meals, shopping, managing finances, etc.?: No Are you currently unemployed and looking for a job?: No Are you interested in more education?: No Please select the resources that you would like help with: None Currently or been in a relationship where the following occur: No concerns reported THRIVE Score: 0 AUDIT C Alcohol Use Questionnaire (AUDIT-C) 1. How often do you have a drink containing alcohol?: Never 2. How many drinks containing alcohol do you have on a typical day when you are drinking?: 1 or 2 (0) 3. How often do you have six or more drinks on one occasion?: Never Total Score: 0 Score Reviewed/Action Taken: No MAURI-7 AMB Questionnaire MAURI-7 Date MAURI - 7 assessed: 11/03/23 Feeling nervous, anxious, or on edge: 0 = Not at all Not being able to stop or control worryin = Not at all Worrying too much about different things: 0 = Not at all Trouble relaxin = Not at all Being so restless that it is hard to sit still: 0 = Not at all Becoming easily annoyed or irritable: 0 = Not at all Feeling afraid as if something awful might happen: 0 = Not at all Total MAURI-7 score (0-4 normal; 5-9 mild; 10-14 moderate; 15-21 severe): 0 Source: Developed by Drs. Juan Tsang, Loretta Mead, Pérez Anderson and colleagues, with an educational mirtha from [employer]. MAURI-7 Assessment Billing MAURI-7 Assessment Tool: MAURI-7 Assessment 63457 Review of Systems Const Denies poor appetite and Denies weakness Eyes Denies no additional complaints ENT Reports Normal hearing present, Denies dizziness, Denies nasal congestion, Denies tinnitus and Denies sore throat Card Denies chest pain, Denies syncope, Denies rapid heart rate and Denies dyspnea Resp Denies cough and Denies dyspnea GI Denies change in stool character, Reports constipation, Denies diarrhea, Denies nausea and Denies vomiting Denies urinary frequency, Denies difficulty voiding and Denies dysuria Neuro Reports Normal hearing present, Denies confusion, Denies dizziness, Denies syncope and Denies weakness Psych Denies confusion Physical exam (Primary Care) Vital Signs: Last Vital Signs Pulse 59 11/03/23 12:55 BP 130/78 11/03/23 12:55 Pulse Ox 98 11/03/23 12:55 Oxygen Delivery Method Room Air 11/03/23 12:55 BMI result Body Mass Index 33.8 Tobacco/Smoking Status: Tobacco use Status Tobacco use date assessed 08/05/23 11/03/23 12:57 Patient Tobacco Use Status Never used Tobacco 11/03/23 12:57 e-Cigarette/Vaping Use Never Used 11/03/23 12:57 PHQ-9: PHQ-9 Score PHQ-9: Total score 0 11/03/23 13:14 Depression Screening Interpretation: Negative Thrive Assessment: Date of Thrive Assessment Date Thrive assessed 06/01/23 11/03/23 12:57 Currently or been in a relationship where the following occur: No concerns reported Const General: No confusion Orientation/consciousness: No confusion HENMT Head: Yes normocephalic Ears: external ears normal and TM's normal bilaterally Face and sinus: Yes normal facial exam Mouth: moist mucous membranes Throat: Yes tonsils normal Eyes Conjunctivae: conjunctivae normal Pupils: Equal, round and reactive pupils present and Pupil accommodation reflex normal Direct Ophthalmoscopy: normal light reflex Neck Neck: No lymphadenopathy Thyroid: Thyroid normal Chest Chest palpation & inspection: normal inspection of the chest Resp Effort & Inspection: normal respiratory effort and no audible wheezes Auscultation: clear to auscultation bilaterally, no crackles, no wheezes and lung sounds not diminished Cardio Rate: regular rate Rhythm: regular rhythm Peripheral pulses: radial pulses present and dorsalis pedis present GI Palpation (GI): no masses Auscultation: normal bowel sounds and normoactive bowel sounds Rectal Exam - Female: deferred Skin General skin exam: no rashes or lesions noted Rashes: no rashes Neuro General: No confusion Cranial nerves: Yes Equal, round and reactive pupils present and Yes Normal hearing present Cognition (Neuro): normal cognition Gait exam (Neuro): Normal gait present Motor exam (neuro): 5/5 motor strength present throughout Deep tendon reflexes (DTR's): Right brachioradialis reflex intensity grade: 2+, Left brachioradialis reflex intensity grade: 2+, Right patellar reflex intensity grade: 2+ and Left patellar reflex intensity grade: 2+ Extrem General: No edema Assessment and Plan Assessment & Plan (1) Annual physical exam: Code(s): Z00.00 - Encounter for general adult medical examination without abnormal findings Plan: Patient is advised to eat healthy, keep well hydrated, keep active and have adequate sleep. (2) Impaired glucose tolerance: Code(s): R73.02 - Impaired glucose tolerance (oral) Plan: Decrease the amount of carbohydrate intake, pasta, bread, rice and potatoes are all sugar and that is aside from all the sweet stuff, remember that fruits are good but they are Sweet also. (3) Obesity (BMI 30-39.9): Code(s): E66.9 - Obesity, unspecified Plan: Diet and exercise (4) Hypertension: Code(s): I10 - Essential (primary) hypertension Qualifiers: Hypertension type: essential hypertension Qualified Code(s): I10 - Essential (primary) hypertension Plan: Continue with blood pressure medication. Decrease salt intake and exercise on losartan 100 mg once a day metoprolol 100 mg once a day (5) Asthma: Code(s): J45.909 - Unspecified asthma, uncomplicated Qualifiers: Asthma severity: mild Asthma persistence: unspecified Asthma complication type: uncomplicated Qualified Code(s): J45.909 - Unspecified asthma, uncomplicated Plan: Continue with albuterol inhaler as needed (6) Bipolar disorder: Comment: Social anxiety disorder [facility] every 2 weeks October 2019 Code(s): F31.9 - Bipolar disorder, unspecified Qualifiers: Active/Remission status: currently active Current bipolar episode type: mixed Current episode severity: mild Qualified Code(s): F31.61 - Bipolar disorder, current episode mixed, mild Plan: Continue with counseling and therapy (7) Thrombocytosis: Comment: Essential thrombocytosis Code(s): D47.3 - Essential (hemorrhagic) thrombocythemia Plan: Patient follows up with Hematology-Oncology and on hydroxyurea as well as a spirin. (8) Colon cancer screening: Code(s): Z12.11 - Encounter for screening for malignant neoplasm of colon Plan: Patient is reminded about colonoscopy scheduled 12/20/2023 (9) LFT elevation: Code(s): R79.89 - Other specified abnormal findings of blood chemistry Plan: will order for US (10) Osteopenia: Comment: 09/2021 Code(s): M85.80 - Other specified disorders of bone density and structure, unspecified site Plan: bone density requested (11) Shoulder pain, left: Code(s): M25.512 - Pain in left shoulder Plan: pain is monstly on the triceps- discussed about therapy but decline for now Orders: Orders US abdomen complete Today R79.89 - Other specified abnormal findings of blood chemistry Hepatitis B,C Profile Today R79.89 - Other specified abnormal findings of blood chemistry XR DEXA axial skeleton Today M81.0 - Age-related osteoporosis without current pathological fracture, M85.80 - Other specified disorders of bone density and st ructure, unspecified site Medications: Refilled docusate sodium (Colace) 200 mg (2 x 100 mg) PO BEDTIME 90 days 180 caps 3RF K59.00 - Constipation, unspecified metoprolol succinate ER 100 mg PO DAILY 90 days 90 tabs 3RF I10 - Essential (primary) hypertension Coding Level of Care Code Est Pt Prev Care >65y(10925) Diagnoses Annual physical exam Z00.00 Impaired glucose tolerance R73.02 Obesity (BMI 30-39.9) E66.9 Essential hypertension I10 Hypertension type: essential hypertension Mild asthma without complication, unspecified whether persistent J45.909 Asthma severity: mild Asthma persistence: unspecified Asthma complication type: uncomplicated Bipolar disorder, current episode mixed, mild F31.61 Active/Remission status: currently active Current bipolar episode type: mixed Current episode severity: mild Thrombocytosis D47.3 Colon cancer screening Z12.11 LFT elevation R79.89 Osteopenia M85.80 Shoulder pain, left M25.512 Additional Codes MAURI-7 Assessment Billing - MAURI-7 Assessment Tool: MAURI-7 Assessment [id number] ([id number])
== END 2023-11-03 13:57 | disposition home or self-care (01) ==
PROVIDERS: PCP Internal Medicine; Visit Provider Internal Medicine
DX: Z00.00 Encounter for general adult medical examination without abnormal findings (principal); D47.3 Essential (hemorrhagic) thrombocythemia; F31.61 Bipolar disorder, current episode mixed, mild; R73.02 Impaired glucose tolerance (oral); E66.9 Obesity, unspecified; I10 Essential (primary) hypertension; J45.909 Unspecified asthma, uncomplicated; Z12.11 Encounter for screening for malignant neoplasm of colon; R79.89 Other specified abnormal findings of blood chemistry; M85.80 Other specified disorders of bone density and structure, unspecified site; M25.512 Pain in left shoulder
CPT/HCPCS: 99397

== ENCOUNTER 2023-11-21 07:48 | Outpatient (REF) | payer MEDICARE, MEDICAID, SELFPAY ==
--- NOTE | ~2023-11-21 | US_ITS ---
EXAMINATION: US ABDOMEN COMPLETE CLINICAL INFORMATION: Other specified abnormal findings of blood chemistry. COMPARISON: CT abdomen and pelvis 11/14/2018. TECHNIQUE: Real-time imaging of the abdominal viscera. Technically limited study secondary to bowel gas and body habitus. FINDINGS: PANCREAS: Limited visualization of pancreatic tail and head. Imaged portion of pancreatic body is unremarkable. ABDOMINAL AORTA: Limited visualization. INFERIOR VENA CAVA: Visualized portions are normal. LIVER: Mildly increased hepatic parenchymal heterogeneity and echogenicity could be associated with hepatocellular disease/hepatic steatosis and substantially limits visualization. Correlation with liver function tests and clinical exam recommended to determine further management. GALLBLADDER: No gallstones. COMMON BILE DUCT: Normal in caliber measuring 0.3 cm in diameter. RIGHT KIDNEY: 1.2 cm [id number] pole cyst with benign features. There is no indication for follow-up imaging. No hydronephrosis or renal calculi. The kidney measures 10.1 cm in maximum dimension. LEFT KIDNEY: 1.1 cm medial exophytic and 1.0 cm lateral upper pole cyst with benign features. There is no indication for follow-up imaging. No hydronephrosis or renal calculi. The kidney measures 10.7 cm in maximum dimension. SPLEEN: Normal. The spleen measures 9.0 cm in maximum dimension. FREE FLUID: None. US/US abdomen complete IMPRESSION: Mildly increased hepatic parenchymal heterogeneity and echogenicity could be associated with hepatocellular disease/hepatic steatosis and substantially limits visualization. Correlation with liver function tests and clinical exam recommended to determine further management.
[2023-11-21 08:48] LABS: HBS Num1 0.39 mIU/mL (0-7.99); HBc Num1 0.34 S/CO (0.00-0.79); HBsAGNum1 0.29 S/CO (0.00-0.99); Hepatitis B Core Antibody Nonreactive (Nonreactive); Hepatitis B Surface Antigen Negative (Negative); ~HepC Num1 0.13 S/CO (0.00-0.79); ~Hepatitis B Surface Antibody NONREACTIVE (Nonreactive); ~Hepatitis C Antibody Nonreactive (Nonreactive)
== END 2023-11-21 07:49 | disposition home or self-care (01) ==
LOC: HO.US 07:48
PROVIDERS: PCP Internal Medicine; Visit Provider Internal Medicine
DX: R79.89 Other specified abnormal findings of blood chemistry (principal)
CPT/HCPCS: 36415; 76700; 86704; 86706; 86803; 87340

== ENCOUNTER 2023-12-02 13:49 | Outpatient (AMB) | payer MEDICARE, MEDICAID, SELFPAY ==
[2023-12-02 13:56] VITALS: BP 130/68; PULSE 60; O2SAT 98; BMI 33.1
--- NOTE | 2023-12-02 13:56 | A.OFFPC_ITS ---
Vital Signs 12/02/23 13:56 Height 5 ft 3 in Weight 187 lb BMI 33.1 BP 130/68 Blood Pressure Location Lt brachial Position Sitting Pulse 60 Pulse Source Pulse Oximeter Pulse Oximetry (%) 98 Oxygen Delivery Method Room Air Intake Visit Reasons: Hypertension Retirement Benefits Specialist: Present Allergies fluoxetine [Prozac] Allergy (Unknown, Verified 12/02/23 13:56) Unknown hydralazine Allergy (Unknown, Verified 12/02/23 13:56) Unknown lisinopril Allergy (Unknown, Verified 12/02/23 13:56) Unknown lithium Allergy (Unknown, Verified 12/02/23 13:56) Unknown tizanidine Allergy (Unknown, Verified 12/02/23 13:56) Unknown hydrochlorothiazide Adverse Reaction (Intermediate, Verified 12/02/23 13:56) hyponatremia nifedipine Adverse Reaction (Intermediate, Verified 12/02/23 13:56) Headache amlodipine Adverse Reaction (Unknown, Verified 12/02/23 13:56) urinary retendtion Medication List - Last Reconciled 12/02/23 by Vipul Shahid MD albuterol sulfate 90 mcg/actuation (Ventolin HFA) 2 puffs inhalation Q6H PRN ascorbate calcium (vitamin C) 500 mg PO DAILY aspirin 81 mg PO DAILY clonazepam (Klonopin) 1 mg PO DAILY hydrocortisone 2.5% (Proctosol HC) 1 appl SD BID-QID PRN hydroxyurea 500 mg PO DAILY lactulose 20 grams (30 mL) PO DAILY latanoprost 0.005% 1 drp ophthalmic (eye) DAILY losartan 100 mg PO DAILY metoprolol succinate ER 100 mg PO DAILY 90 days multivitamin 1 tab PO DAILY olanzapine (Zyprexa) 5 mg PO DAILY omega-3 fatty acids (Fish Oil Concentrate) 1,000 mg PO DAILY sennosides-docusate sodium 8.6-50 mg (Senna Plus) 2 tab-caps (2 x 8.6-50 mg) PO BEDTIME timolol maleate 0.5% (Timoptic) 1 drp ophthalmic (eye) BID vit C,Q-Ge-gjyhk-lutein-zeaxan 250-90-40-1 mg (PreserVision AREDS-2) 1 tab PO BID Tobacco use date assessed: 08/05/23 Fall risk assessment: No Falls in past year Last assessed Fall Risk: 12/02/23 Dental Screening Dental Screen Date: 11/03/23 HPI Hypertension HPI Details 73-year-old obese female with impaired g lucose tolerance hypertension asthma bipolar disorder coming in for follow-up. Patient's colonoscopy is due, mammogram is up-to-date bone density is due. [facility] Medical History (Updated 11/03/23 @ 13:49 by Vipul Shahid MD) Stye Finger pain, left Ringing in ears Epidermal inclusion cyst Abdominal wall abscess Abscess Age-related osteoporosis without current pathological fracture Hypercalcemia Breast cancer screening by mammogram Vaginal cyst Renal insufficiency Macular degeneration Diverticulitis Glaucoma Bipolar disorder Hypercholesterolemia Obesity (BMI 30-39.9) Hypertension Osteopenia Nontoxic multinodular goiter Asthma Onychomycosis Surgical History History of breast biopsy H/O elbow surgery Family History Father CVD (cardiovascular disease) Myocardial infarction Mother No problems noted. Maternal Aunt Uterine cancer Family/Other Breast cancer Social History Household Members: Children Housing: Apartment Alcohol intake: never Patient Tobacco Use Status: Never used Tobacco e-Cigarette/Vaping Use: Never Used Second Hand Smoke Exposure: No service: No Current occupational status: retired Current occupational exposures/hazards: No Cognitive needs: No Hearing needs: No Vision needs: Yes Female Reproductive History Menstrual Age of Menarche: 13 Questionnaire Thrive Questionnaire Date Thrive assessed: 06/01/23 MAURI-7 AMB Questionnaire MAURI-7 Date MAURI - 7 assessed: 11/03/23 Source: Developed by Drs. Juan Tsang, Loretta Mead, Pérez Anderson and colleagues, with an educational mirtha from [employer]. Physical exam (Primary Care) Vital Signs: Last Vital Signs Pulse 60 12/02/23 13:56 BP 130/68 12/02/23 13:56 Pulse Ox 98 12/02/23 13:56 Oxygen Delivery Method Room Air 12/02/23 13:56 BMI result Body Mass Index 33.1 Tobacco/Smoking Status: Tobacco use Status Tobacco use date assessed 08/05/23 12/02/23 13:56 Patient Tobacco Use Status Never used Tobacco 12/02/23 13:56 e-Cigarette/Vaping Use Never Used 12/02/23 13:56 Thrive Assessment: Date of Thrive Assessment Date Thrive assessed 06/01/23 12/02/23 13:56 Const General: alert; No acute distress Eyes Conjunctivae: conjunctivae normal Resp Auscultation: clear to auscultation bilaterally Cardio Rate: regular rate Rhythm: regular rhythm GI Inspection: Yes normal to inspection Extrem General: Yes normal to inspection and No edema Assessment and Plan Assessment & Plan (1) Osteopenia: Comment: 09/2021 Code(s): M85.80 - Other specified disorders of bone density and structure, unspecified site Plan: Patient is reminded about the bone density (2) Colon cancer screening: Code(s): Z12.11 - Encounter for screening for malignant neoplasm of colon Plan: Patient is reminded about colonoscopy (3) Impaired glucose tolerance: Code(s): R73.02 - Impaired glucose tolerance (oral) Plan: Decrease the amount of carbohydrate intake, pasta, bread, rice and potatoes are all sugar and that is aside from all the sweet stuff, remember that fruits are g ood but they are Sweet also. (4) Bipolar disorder: Comment: Social anxiety disorder [facility] every 2 weeks October 2019 Code(s): F31.9 - Bipolar disorder, unspecified Qualifiers: Active/Remission status: currently active Current bipolar episode type: mixed Current episode severity: mild Qualified Code(s): F31.61 - Bipolar disorder, current episode mixed, mild Plan: Continue with counseling and therapy on clonazepam olanzapine (5) Hypercholesterolemia: Code(s): E78.00 - Pure hypercholesterolemia, unspecified Plan: Avoid fried foods, chicken skin, eggs, butter margarine, pastries and meat. Be it pork or beef they have a lot of cholesterol LDL goal of less than 130 and triglyceride of less than 150 diet controlled (6) Obesity (BMI 30-39.9): Code(s): E66.9 - Obesity, unspecified Plan: Diet and exercise (7) Hypertension: Code(s): I10 - Essential (primary) hypertension Qualifiers: Hypertension type: essential hypertension Qualified Code(s): I10 - Essential (primary) hypertension Plan: Continue with blood pressure medication. Decrease salt intake and exercise patient takes losartan 100 mg once a day metoprolol 100 mg once a day (8) Constipation: Code(s): K59.00 - Constipation, unspecified Medications: New sennosides-docusate sodium 8.6-50 mg (Senna Plus) 2 tab-caps (2 x 8.6-50 mg) PO BEDTIME 60 caps 3RF K59.00 - Constipation, unspecified Refilled losartan 100 mg PO DAILY 90 tabs 3RF I10 - Essential (primary) hypertension Discontinued docusate sodium (Colace) Discontinued Reason: Ancillary Entered New Order 200 mg (2 x 100 mg) PO BEDTIME 90 days 180 caps 3RF K59.00 - Constipation, unspecified Coding Level of Care Code Est Pt Level 4 (44632) Diagnoses Osteopenia M85.80 Colon cancer screening Z12.11 Impaired glucose tolerance R73.02 Bipolar disorder, current episode mixed, mild F31.61 Active/Remission status: currently active Current bipolar episode type: mixed Current episode severity: mild Hypercholesterolemia E78.00 Obesity (BMI 30-39.9) E66.9 Essential hypertension I10 Hypertension type: essential hypertension Constipation K59.00
== END 2023-12-02 14:44 | disposition home or self-care (01) ==
PROVIDERS: PCP Internal Medicine; Visit Provider Internal Medicine
DX: I10 Essential (primary) hypertension (principal); M85.80 Other specified disorders of bone density and structure, unspecified site; R73.02 Impaired glucose tolerance (oral); F31.61 Bipolar disorder, current episode mixed, mild; E78.00 Pure hypercholesterolemia, unspecified; K59.00 Constipation, unspecified
CPT/HCPCS: 99214

== ENCOUNTER 2023-12-07 10:10 | Outpatient (REF) | payer MEDICARE, MEDICAID, SELFPAY ==
--- NOTE | ~2023-12-07 | MM_ITS ---
EXAMINATION: BONE DENSITOMETRY CLINICAL INDICATION: Age-related osteoporosis without current pathological fracture. COMPARISON: Previous BD dated 10/01/2021 and baseline BD dated 10/21/2008. TECHNIQUE: Using a [employer] DXA System (software version: 13.1) manufactured by [employer], dual-energy x-ray absorptiometry was performed of the lumbar spine and left hip. The images are of good technical quality. Summary results are attached. FINDINGS: LEFT FEMUR, NECK: Current: BMD 0.982 g/cm2, Z-score 1.0, T-score -0.4, normal. Prior: BMD 0.940 g/cm2. Baseline: BMD 1.009 g/cm2. LEFT FEMUR, TOTAL: Current: BMD 1.035 g/cm2, Z-score 1.3, T-score 0.2, normal, 0.2% increase from previous, -1.1% decrease from baseline (<5% change is not significant). Prior: BMD 1.033 g/cm2. Baseline: BMD 1.047 g/cm2. AP SPINE L1-L2 (excluding L3 and L4): The data of L1-L4 has been changed to exclude the L3 and L4 vertebral bodies, because degenerative sclerosis at these levels may cause overestimation of lumbar spine density. Current: BMD 0.923 g/cm2, Z-score -1.0, T-score -2.0, osteopenia, 2.4% decrease from previous, 6.6% decrease from baseline (<5% change is not significant). Prior: BMD 0.946 g/cm2. Baseline: BMD 0.988 g/cm2. IDENTIFIED RISK FACTORS: Height loss, menopause, osteoporosis. HISTORY OF FRACTURE: None listed. MEDICATIONS: Multivitamin, vitamin D. MM/XR DEXA axial skeleton IMPRESSION: 1. DIAGNOSIS: Osteopenia based on the lowest T-score value of -2.0 in the lumbar spine applying World Health Organization criteria. 2. 10-YEAR FRACTURE RISK PREDICTION, FRAX: Major osteoporotic fracture (clinical spine, forearm, hip or shoulder) 4.2%. Hip fracture 0.3%. 3. Treatment Recommendations: NOF guidelines recommend consideration for treatment in postmenopausal women and men age 50 and older presenting with the following: -A hip or vertebral (clinical or morphometric) fracture. -T-score less than or equal to -2.5 at the femoral neck or spine after appropriate evaluation to exclude secondary causes. -Low bone mass at the hip or spine and a 10-year fracture probability by FRAX of greater than or equal to 3% for hip fracture or greater than or equal to 20% for major osteoporotic fracture based on the [place] adapted WHO algorithm. 4. Other Recommendations: All treatment decisions require clinical judgment and consideration of individual patient factors, including patient preferences, comorbidities, previous drug use, risk factors not captured in the FRAX model (e.g. frailty, falls, vitamin D deficiency, increased bone turnover, interval significant decline in bone density) and possible under or overestimation of fracture risk by FRAX. Additional medical evaluation for secondary cause of low bone mineral density may be appropriate. FUTURE SCAN RECOMMENDATION: People with diagnosed cases of osteoporosis or at high risk for fracture should have regular bone mineral density tests. For patients eligible for Medicare, routine testing is allowed once every 2 years. The testing frequency can be increased to one year for patients who have rapidly progressing disease, those who are receiving or discontinuing medical therapy to restore bone mass, or have additional risk factors.
== END 2023-12-07 10:11 | disposition home or self-care (01) ==
LOC: HO.MAMMO 10:10
PROVIDERS: PCP Internal Medicine; Visit Provider Internal Medicine
DX: M81.0 Age-related osteoporosis without current pathological fracture (principal); M85.80 Other specified disorders of bone density and structure, unspecified site
CPT/HCPCS: 77080

== ENCOUNTER 2024-03-14 10:42 | Outpatient (AMB) | payer MEDICARE, MEDICAID, SELFPAY ==
[2024-03-14 10:54] VITALS: BP 134/72; PULSE 59; O2SAT 97; BMI 34.0
--- NOTE | 2024-03-14 10:54 | A.OFFPC_ITS ---
Vital Signs 03/14/24 10:54 Height 5 ft 3 in Weight 192 lb BMI 34.0 BP 134/72 Blood Pressure Location Lt brachial Position Sitting Pulse 59 Pulse Source Pulse Oximeter Pulse Oximetry (%) 97 Oxygen Delivery Method Room Air Intake Visit Reasons: 3 Month Follow Up Allergies fluoxetine [Prozac] Allergy (Unknown, Verified 03/14/24 10:55) Unknown hydralazine Allergy (Unknown, Verified 03/14/24 10:55) Unknown lisinopril Allergy (Unknown, Verified 03/14/24 10:55) Unknown lithium Allergy (Unknown, Verified 03/14/24 10:55) Unknown tizanidine Allergy (Unknown, Verified 03/14/24 10:55) Unknown hydrochlorothiazide Adverse Reaction (Intermediate, Verified 03/14/24 10:55) hyponatremia nifedipine Adverse Reaction (Intermediate, Verified 03/14/24 10:55) Headache amlodipine Adverse Reaction (Unknown, Verified 03/14/24 10:55) urinary retendtion Tobacco use date assessed: 03/14/24 Fall risk assessment: No Falls in past year Last assessed Fall Risk: 03/14/24 Dental Screening Dental Screen Date: 11/03/23 HPI 3 Month Follow Up HPI Details 73-year-old obese female with impaired g lucose tolerance bipolar disorder hypercholesterolemia hypertension coming in for follow-up. Last seen in 11/26/2023. Patient was advised colonoscopy up-to-date with mammogram bone density. Patient is scheduled for colon test in 04/02/2024. 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 On hydroxyurea 500 mg once a day and baby aspirin. complains of mass in the rectal area and this has been present for 2-3 years already but it is bothering her right now [facility] Medical History (Updated 03/14/24 @ 11:24 by Vipul Shahid MD) Stye Finger pain, left Ringing in ears Epidermal inclusion cyst Abdominal wall abscess Abscess Age-related osteoporosis without current pathological fracture Hypercalcemia Breast cancer screening by mammogram Vaginal cyst Renal insufficiency Macular degeneration Diverticulitis Glaucoma Bipolar disorder Hypercholesterolemia Obesity (BMI 30-39.9) Hypertension Osteopenia Nontoxic multinodular goiter Asthma Onychomycosis Surgical History History of breast biopsy H/O elbow surgery Family History Father CVD (cardiovascular disease) Myocardial infarction Mother No problems noted. Maternal Aunt Uterine cancer Family/Other Breast cancer Social History Household Members: Children Housing: Apartment Alcohol intake: never Patient Tobacco Use Status: Never used Tobacco Tobacco use type: Cigarette e-Cigarette/Vaping Use: Never Used Second Hand Smoke Exposure: No service: No Current occupational status: retired Current occupational exposures/hazards: No Cognitive needs: No Hearing needs: No Vision needs: Yes Female Reproductive History Menstrual Age of Menarche: 13 Questionnaire PHQ-9 Over the last 2 weeks, how often have you been bothered by any of the following problems? 1. Little interest or pleasure in doing things: not at all 2. Feeling down, depressed, or hopeless: not at all 3. Trouble falling or staying asleep, or sleeping too much: not at all 4. Feeling tired or having little energy: not at all 5. Poor appetite or overeating: not at all 6. Feeling bad about yourself - or that you are a failure or have let yourself or your family down: not at all 7. Trouble concentrating on things, such as reading the newspaper or watching television: not at all 8. Moving or speaking so slowly that other people could have noticed. Or the o pposite - being so fidgety or restless that you have been moving around a lot more than usual: not at all 9. Thoughts that you would be better off or of hurting yourself in some way: not at all Total score: 0 Depression Screening Interpretation: Negative Depression Screening Done: Yes 43398 - PHQ-9 Billing: Yes Source: Developed by Drs. Juan Tsang, Loretta Mead, Pérez Anderson and colleagues, with an educational mirtha from [employer]. Thrive Questionnaire Date Thrive assessed: 03/14/24 I am a: Patient What is your living situation today?: I have a steady place to live Within the past 12 months, did the food you bought not last and you didn't have the money to get more?: Never true Within the past 12 months, did you worry whether your food would run out before you got money to buy more?: Never true Do you have trouble paying for medicines?: No Do you have trouble getting transportation to medical appointments?: No Do you have trouble paying your heating and electricity bill?: No Do you have trouble taking care of your child, family member or friend?: No Do you have trouble with day-to-day activities such as bathing, preparing meals, shopping, managing finances, etc.?: No Are you currently unemployed and looking for a job?: No Are you interested in more education?: No Currently or been in a relationship where the following occur: No concerns reported THRIVE Score: 0 AUDIT C Alcohol Use Questionnaire (AUDIT-C) 1. How often do you have a drink containing alcohol?: Never 2. How many drinks containing alcohol do you have on a typical day when you are drinking?: 1 or 2 (0) 3. How often do you have six or more drinks on one occasion?: Never Total Score: 0 Score Reviewed/Action Taken: No MAURI-7 AMB Questionnaire MAURI-7 Date MAURI - 7 assessed: 11/03/23 Source: Developed by Drs. Juan Tsang, Loretta Mead, Pérez Anderson and colleagues, with an educational mirtha from [employer]. Physical exam (Primary Care) Vital Signs: Last Vital Signs Pulse 59 03/14/24 10:54 BP 134/72 03/14/24 10:54 Pulse Ox 97 03/14/24 10:54 Oxygen Delivery Method Room Air 03/14/24 10:54 BMI result Body Mass Index 34.0 Tobacco/Smoking Status: Tobacco use Status Tobacco use date assessed 03/14/24 03/14/24 11:02 Patient Tobacco Use Status Never used Tobacco 03/14/24 11:02 Tobacco use type Cigarette 03/14/24 11:02 e-Cigarette/Vaping Use Never Used 03/14/24 11:02 PHQ-9: PHQ-9 Score PHQ-9: Total score 0 03/14/24 11:02 Depression Screening Interpretation: Negative Thrive Assessment: Date of Thrive Assessment Date Thrive assessed 03/14/24 03/14/24 11:02 Currently or been in a relationship where the following occur: No concerns reported Const General: alert; No acute distress Eyes Conjunctivae: conjunctivae normal Resp Auscultation: clear to auscultation bilaterally Cardio Rate: regular rate Rhythm: regular rhythm GI Other: 1 CM mass on the rectal area Inspection: Yes normal to inspection Extrem General: Yes normal to inspection and No edema Coding Level of Care Code Est Pt Level 4 (86923) Complex EM visit Add On G2211 Diagnoses Colon cancer screening Z12.11 Impaired glucose tolerance R73.02 Obesity (BMI 30-39.9) E66.9 Essential hypertension I10 Hypertension type: essential hypertension Hypercholesterolemia E78.00 Hepatic steatosis K76.0 Thrombocytosis D47.3 Grade I hemorrhoids K64.0 Hemorrhoid type: first degree Slow transit constipation K59.01 Constipation type: slow transit constipation Additional Codes PHQ-9 - 91110 - PHQ-9 Billing: Yes ([id number]) Assessment & Plan Assessment & Plan (1) Colon cancer screening: Code(s): Z12.11 - Encounter for screening for malignant neoplasm of colon Category: Medical Plan: Patient has a scheduled colonoscopy in 04/02/2024 (2) Impaired glucose tolerance: Code(s): R73.02 - Impaired glucose tolerance (oral) Category: Medical Plan: Decrease the amount of carbohydrate intake, pasta, bread, rice and potatoes are all sugar and that is aside from all the sweet stuff, remember that fruits are good but they are Sweet also. (3) Obesity (BMI 30-39.9): Code(s): E66.9 - Obesity, unspecified Category: Medical Plan: Diet and exercise (4) Hypertension: Code(s): I10 - Essential (primary) hypertension Category: Medical Qualifiers: Hypertension type: essential hypertension Qualified Code(s): I10 - Essential (primary) hypertension Plan: Continue with blood pressure medication. Decrease salt intake and exercise patient is on losartan 100 mg once a day metoprolol 100 mg once a day (5) Hypercholesterolemia: Code(s): E78.00 - Pure hypercholesterolemia, unspecified Category: Medical Plan: Avoid fried foods, chicken skin, eggs, butter margarine, pastries and meat. Be it pork or beef they have a lot of cholesterol LDL goal of less than 130 and triglyceride of less than 150 (6) Hepatic steatosis: Code(s): K76.0 - Fatty (change of) liver, not elsewhere classified Category: Medical Plan: Low-fat diet and exercise (7) Thrombocytosis: Comment: Essential thrombocytosis Code(s): D47.3 - Essential (hemorrhagic) thrombocythemia Category: Medical Plan: Continuing to monitor and being followed up by hematology oncology. Has been placed on aspirin 81 mg once a day and hydroxyurea 500 mg once a day (8) Hemorrhoid: Code(s): K64.9 - Unspecified hemorrhoids Category: Medical Qualifiers: Hemorrhoid type: first degree Qualified Code(s): K64.0 - First degree hemorrhoids Plan: avoid getting constipation. hot sitz bath advised 15 min TID (9) Constipation: Code(s): K59.00 - Constipation, unspecified Category: Medical Qualifiers: Constipation type: slow transit constipation Qualified Code(s): K59.01 - Slow transit constipation Plan: keep well hydrated, eat more fiber. and exercise Medications: New hydrocortisone 2.5% (Proctosol HC) 1 appl AR BID-QID PRN 30 grams 1RF hemorrhoids K64.9 - Unspecified hemorrhoids Refilled metoprolol succinate ER 100 mg PO DAILY 90 days 90 tabs 3RF I10 - Essential (primary) hypertension losartan 100 mg PO DAILY 90 tabs 3RF I10 - Essential (primary) hypertension Discontinued hydrocortisone 2.5% (Proctosol HC) Discontinued Reason: Doctor's Order 1 appl AR BID-QID PRN 30 grams 2RF hemorrhoids K64.9 - Unspecified hemorrhoids
== END 2024-03-14 11:29 | disposition home or self-care (01) ==
LOC: HO.HMCH 10:43
PROVIDERS: PCP Internal Medicine; Visit Provider Internal Medicine
DX: R73.02 Impaired glucose tolerance (oral) (principal); E66.9 Obesity, unspecified; Z68.34 Body mass index [BMI] 34.0-34.9, adult; D47.3 Essential (hemorrhagic) thrombocythemia; Z12.11 Encounter for screening for malignant neoplasm of colon; I10 Essential (primary) hypertension; E78.00 Pure hypercholesterolemia, unspecified; K76.0 Fatty (change of) liver, not elsewhere classified; K64.0 First degree hemorrhoids; K59.01 Slow transit constipation

== ENCOUNTER → 2024-03-14 10:42 | Outpatient (BNVA) | payer MEDICARE, MEDICAID, SELFPAY | PROVIDERS: PCP Internal Medicine; Visit Provider Internal Medicine | DX: R73.02 Impaired glucose tolerance (oral) (principal); E66.9 Obesity, unspecified; I10 Essential (primary) hypertension; E78.00 Pure hypercholesterolemia, unspecified; K76.0 Fatty (change of) liver, not elsewhere classified; D47.3 Essential (hemorrhagic) thrombocythemia; K64.0 First degree hemorrhoids; K59.01 Slow transit constipation | CPT/HCPCS: 96127; 99212 ==

== ENCOUNTER 2024-04-02 08:37 | Day surgery (SDC) | payer MEDICARE, MEDICAID, SELFPAY ==
[2024-03-29 12:47] VITALS: BMI 34.0
--- NOTE | 2024-03-29 13:18 | HO.ANESPROP2 ---
Documented by User: Danita Rich NP 03/29/24 13:18 HPI - Anesthesia Eval Consult details Narrative: 73yo F for Colonoscopy PMFSH Active Problems Active Problems: All Active Problems Hepatic steatosis (Acute) Shoulder pain, left (Acute) Osteopenia (Acute) LFT elevation (Acute) Colon cancer screening (Acute) Diarrhea (Acute) Hemorrhoid (Acute) Constipation (Acute) Annual physical exam (Acute) Impaired glucose tolerance (Acute) Constipation (Acute) Vulvar lesion (Acute) COVID-19 virus infection (Acute) Thrombocytosis (Chronic) Bipolar disorder (Acute) Hypercholesterolemia (Acute) Obesity (BMI 30-39.9) (Acute) Hypertension (Acute) Asthma (Acute) Past Medical History Medical History Stye Finger pain, left Ringing in ears Epidermal inclusion cyst Abdominal wall abscess Abscess Age-related osteoporosis without current pathological fracture Hypercalcemia Breast cancer screening by mammogram Vaginal cyst Renal insufficiency Macular degeneration Diverticulitis Glaucoma Bipolar disorder Hypercholesterolemia Obesity (BMI 30-39.9) Hypertension Osteopenia Nontoxic multinodular goiter Asthma Onychomycosis Family History Family History Father CVD (cardiovascular disease) Myocardial infarction Mother No problems noted. Maternal Aunt Uterine cancer Family/Other Breast cancer Surgical History Surgical History History of breast biopsy H/O elbow surgery Social History Social History Household Members: Children Housing: Apartment Are you a primary mall plant caretaker to a significant other at home: No Do you presently have visiting nurse or other home services: No Alcohol intake: never Patient Tobacco Use Status: Never used Tobacco Tobacco use type: Cigarette e-Cigarette/Vaping Use: Never Used Second Hand Smoke Exposure: No Use of substances other than those prescribed or required for medical reasons: No Have you been hit, kicked, punched, or otherwise hurt by someone within the past year? If so, by whom?: No Are you DNR?: No Advance Directives: No Advance Directives Information Provided: Yes Recently lost weight without trying: No service: No Current occupational status: retired Current occupational exposures/hazards: No Cognitive needs: No Hearing needs: No Vision needs: Yes Meds Allergies Allergy/AdvReac Type Severity Reaction Status Date / Time fluoxetine [Prozac] Allergy Unknown Unknown Verified 03/14/24 10:55 hydralazine Allergy Unknown Unknown Verified 03/14/24 10:55 lisinopril Allergy Unknown Unknown Verified 03/14/24 10:55 lithium Allergy Unknown Unknown Verified 03/14/24 10:55 tizanidine Allergy Unknown Unknown Verified 03/14/24 10:55 hydrochlorothiazide AdvReac Intermediate hyponatremi Verified 03/14/24 10:55 a nifedipine AdvReac Intermediate Headache Verified 03/14/24 10:55 amlodipine AdvReac Unknown urinary Verified 03/14/24 10:55 retendtion Home Medications ?Medication ?Instructions ?Recorded ?Confirmed ?Last Taken ?Type ascorbate calcium (vitamin C) 500 500 mg PO DAILY 03/03/20 12/26/23 Unknown History mg tablet clonazepam 1 mg tablet (Klonopin) 1 mg PO DAILY 03/03/20 12/26/23 Unknown History latanoprost 0.005 % eye drops 1 drp ophthalmic (eye) DAILY 03/03/20 12/26/23 Unknown History multivitamin 1 tab PO DAILY 03/03/20 12/26/23 Unknown History olanzapine 10 mg tablet (Zyprexa) 5 mg PO DAILY 03/03/20 12/26/23 Unknown History omega-3 fatty acids 1,000 mg 1,000 mg PO DAILY 03/03/20 12/26/23 Unknown History capsule (Fish Oil Concentrate) timolol maleate 0.5 % eye drops 1 drp ophthalmic (eye) BID 02/04/22 12/26/23 Unknown History (Timoptic) vit C 250 mg-vit E 90 mg-zinc 40 1 tab PO BID 11/02/22 12/26/23 Unknown History mg-copper 1 ef-rwlmgc-mvxdhm capsule (PreserVision AREDS-2) Exam Height,Weight and Vital Signs: Height 5 ft 3 in Weight 87.09 kg Assessment and Plan Assessment Anesthesia Assessment: Chart Reviewed Documented by User: Aleisha Josue MD 04/02/24 10:23 [facility] Past Medical History Medical History Stye Finger pain, left Ringing in ears Epidermal inclusion cyst Abdominal wall abscess Abscess Age-related osteoporosis without current pathological fracture Hypercalcemia Breast cancer screening by mammogram Vaginal cyst Renal insufficiency Macular degeneration Diverticulitis Glaucoma Bipolar disorder Hypercholesterolemia Obesity (BMI 30-39.9) Hypertension Osteopenia Nontoxic multinodular goiter Asthma Onychomycosis Family History Family History Father CVD (cardiovascular disease) Myocardial infarction Mother No problems noted. Maternal Aunt Uterine cancer Family/Other Breast cancer Family history of problems with anesthesia: No Surgical History Surgical History History of breast biopsy H/O elbow surgery History of Problems with Anesthesia: No Social History Social History Household Members: Children Housing: Apartment Are you a primary mall plant caretaker to a significant other at home: No Do you presently have visiting nurse or other home services: No Alcohol intake: never Patient Tobacco Use Status: Never used Tobacco Tobacco use type: Cigarette e-Cigarette/Vaping Use: Never Used Second Hand Smoke Exposure: No Use of substances other than those prescribed or required for medical reasons: No Have you been hit, kicked, punched, or otherwise hurt by someone within the past year? If so, by whom?: No Are you DNR?: No Advance Directives: No Advance Directives Information Provided: Yes Recently lost weight without trying: No service: No Current occupational status: retired Current occupational exposures/hazards: No Cognitive needs: No Hearing needs: No Vision needs: Yes Meds Allergies Allergy/AdvReac Type Severity Reaction Status Date / Time fluoxetine [Prozac] Allergy Unknown Unknown Verified 03/14/24 10:55 hydralazine Allergy Unknown Unknown Verified 03/14/24 10:55 lisinopril Allergy Unknown Unknown Verified 03/14/24 10:55 lithium Allergy Unknown Unknown Verified 03/14/24 10:55 tizanidine Allergy Unknown Unknown Verified 03/14/24 10:55 hydrochlorothiazide AdvReac Intermediate hyponatremi Verified 03/14/24 10:55 a nifedipine AdvReac Intermediate Headache Verified 03/14/24 10:55 amlodipine AdvReac Unknown urinary Verified 03/14/24 10:55 retendtion Home Medications ?Medication ?Instructions ?Recorded ?Confirmed ?Last Taken ?Type ascorbate calcium (vitamin C) 500 500 mg PO DAILY 03/03/20 12/26/23 Unknown History mg tablet clonazepam 1 mg tablet (Klonopin) 1 mg PO DAILY 03/03/20 12/26/23 Unknown History latanoprost 0.005 % eye drops 1 drp ophthalmic (eye) DAILY 03/03/20 12/26/23 Unknown History multivitamin 1 tab PO DAILY 03/03/20 12/26/23 Unknown History olanzapine 10 mg tablet (Zyprexa) 5 mg PO DAILY 03/03/20 12/26/23 Unknown History omega-3 fatty acids 1,000 mg 1,000 mg PO DAILY 03/03/20 12/26/23 Unknown History capsule (Fish Oil Concentrate) timolol maleate 0.5 % eye drops 1 drp ophthalmic (eye) BID 02/04/22 12/26/23 Unknown History (Timoptic) vit C 250 mg-vit E 90 mg-zinc 40 1 tab PO BID 11/02/22 12/26/23 Unknown History mg-copper 1 te-aavibs-gcuxpl capsule (PreserVision AREDS-2) Exam Airway Mallampati Class: III TM Dist: <=3cm Neck ROM: Limited Heart: rrr Lungs: cta Assessment and Plan Assessment Anesthesia Assessment: Anesthesia Plan Discussed Final Anesthetic Review Family History of Problems with Anesthesia: No History of Problems with Anesthesia: No NPO: Yes ASA Class: III Final Preanesthetic Review: No Changes in Pt Med Stat, Meds/Allgs Chart Reviewed, Consent Obtained/Reviewed and Anes Risks/Benef Reviewed Patient Risk: Intermediate Procedure Risk: Low Anesthetic Plan Anesthetic Plan: MAC: Disposition: Standard PACU
[2024-04-02 09:04] VITALS: BP 146/70; PULSE 70; RESP 16; TEMP 36.6; O2SAT 97; BMI 33.5
[2024-04-02] MEDS: Lactated Ringers 1,000 ML 100 ML IVCONT (09:14)
[2024-04-02 12:13] VITALS: BP 108/68; PULSE 84; RESP 16; TEMP 36.8; O2SAT 96
--- NOTE | 2024-04-02 12:14 | PM.OP ---
Brief Operative Note Date of Service: 04/02/24 Pre-op diagnosis: Screening Post-op diagnosis: other (Diverticulosis) Procedure: Colonoscopy to the cecum and TI Surgeon: Juan Gloria MD Anesthesia: MAC Was an Wafer Fabrication Operator used for this Procedure?: No Estimated blood loss (mL): 0 Pathology: none sent Condition: stable Disposition: PACU
[2024-04-02 12:30] VITALS: BP 141/89; PULSE 80; RESP 16; TEMP 36.8; O2SAT 97
--- NOTE | 2024-04-02 14:12 | OP_ITS ---
DATE OF SERVICE: 04/02/2024 SURGEON: Juan Gloria MD INDICATIONS: The patient presents for evaluation of colorectal cancer screening. Full consent has been obtained from her for this, including risks of bleeding and perforation. PREOPERATIVE DIAGNOSIS: Colorectal cancer screening. POSTOPERATIVE DIAGNOSIS: PROCEDURE PERFORMED: Colonoscopy to cecum and terminal ileum. ESTIMATED BLOOD LOSS: COMPLICATIONS: ANESTHESIA: Monitored anesthesia care. ASSISTANTS: SPECIMENS: POSTOPERATIVE DIAGNOSES: Colorectal cancer screening, diverticulosis, internal hemorrhoids. DESCRIPTION OF PROCEDURE: The patient was placed in the left lateral decubitus position. The digital rectal exam revealed external hemorrhoids. The Olympus video pediatric colonoscope was then entered into the rectum and advanced easily to the cecum. Once in the cecum, I did identify normal-appearing cecal pouch with appendiceal orifice and a normal-appearing ileocecal valve. There was transillumination of light deep in the right lower quadrant. The terminal ileum was cannulated and appeared normal. Scope was withdrawn back in the colon. The entire cecum and ileocecal valve appeared normal. The scope was then slowly withdrawn assessing all mucosal surfaces carefully. Preparation was excellent. I did not visualize any sign of polyps, colitis, nor angiodysplasias. There was a moderate amount of sigmoid diverticulosis. In the rectum, scope was retroflexed, visualizing internal hemorrhoids, but no other pathology. The rectal mucosa appeared normal. The scope was straightened and withdrawn from the patient. She tolerated the procedure well and was returned to the recovery area in stable condition. IMPRESSION: 1. Diverticulosis. 2. Internal hemorrhoids. PLAN: Given today's negative colonoscopy, a negative colonoscopy in 2013, no family history of colon cancer, and her age, I advised her that I do not think she would need any further screening colonoscopies. She will, otherwise, see me on a p.r.n. basis. She was advised that she could resume her aspirin and fish oil today. MD NICK Storm/CHENCHO / [id number]
== END 2024-04-02 13:46 | disposition home or self-care (01) ==
PROVIDERS: PCP Internal Medicine; Visit Provider Internal Medicine
PROC: 0DJD8ZZ Inspection of Lower Intestinal Tract, Via Natural or Artificial Opening Endoscopic (ICD-10-PCS; CPT 45378; principal; 2024-04-02 10:40)
DX: Z12.11 Encounter for screening for malignant neoplasm of colon (principal); K57.30 Diverticulosis of large intestine without perforation or abscess without bleeding; K64.8 Other hemorrhoids; K64.4 Residual hemorrhoidal skin tags; I10 Essential (primary) hypertension; J45.909 Unspecified asthma, uncomplicated; Z79.82 Long term (current) use of aspirin; Z79.899 Other long term (current) drug therapy
CPT/HCPCS: G0121; J2003; J2250; J2704

== ENCOUNTER 2024-06-19 12:22 | Outpatient (AMB) | payer MEDICARE, MEDICAID, SELFPAY ==
--- NOTE | 2024-06-19 12:27 | A.OFFPC_ITS ---
Vital Signs 06/19/24 12:28 Height 5 ft 3 in Weight 194 lb BMI 34.4 BP 124/76 Blood Pressure Location Lt brachial Position Sitting Pulse 77 Pulse Source Pulse Oximeter Pulse Oximetry (%) 98 Oxygen Delivery Method Room Air Intake Visit Reasons: HTN , hemorrhoid Allergies fluoxetine [Prozac] Allergy (Unknown, Verified 06/19/24 12:28) Unknown hydralazine Allergy (Unknown, Verified 06/19/24 12:28) Unknown lisinopril Allergy (Unknown, Verified 06/19/24 12:) Unknown lithium Allergy (Unknown, Verified 06/19/24 12:28) Unknown tizanidine Allergy (Unknown, Verified 06/19/24 12:) Unknown hydrochlorothiazide Adverse Reaction (Intermediate, Verified 06/19/24 12:) hyponatremia nifedipine Adverse Reaction (Intermediate, Verified 06/19/24 12:) Headache amlodipine Adverse Reaction (Unknown, Verified 06/19/24 12:) urinary retendtion Tobacco use date assessed: 06/19/24 Fall risk assessment: No Falls in past year Last assessed Fall Risk: 06/19/24 Dental Screening Dental Screen Date: 06/19/24 Did you have a dental visit in the last 12 months?: Yes Did you have a dental problem in the last 6 months where you did not have access to dental care?: No Was dental information given to patient?: Patient has dentist HPI HTN , hemorrhoid HPI Details The patient is a 73-year-old female presenting with a primary concern of constipation. She reports constipation occurring daily, accompanied by significant pain and gas. This issue was noted last week. The patient has a history of essential hypertension, managed with losartan 100 mg daily and metoprolol 100 mg daily. She also has hypercholesterolemia, with the last recorded LDL level of 130 mg/dL in October 2023. Past medical history includes asthma, treated with albuterol inhaler as needed, and bipolar disorder, with current medication including Zyprexa, which may have constipation as a side effe ct. The patient has thrombocytosis, with JAK2 mutation positive since 2020 and is on hydroxyurea and baby aspirin. She underwent a colonoscopy in March 2024 showing diverticulosis and hemorrhoids. Previous hematology work in April indicated normal blood counts but persistent macrocytic platelets at 459. Liver function tests have shown chronic elevation. She has a stable renal function, and normal blood sugar levels were last noted. There is a positive family history for coronary artery disease. The patient mentions past dissatisfaction with Senna Plus therapy for constipation and inquired about MiraLax. She consumes a low-fat diet with salmon but lacks sufficient fiber intake. FORMERLY [facility], [facility] Medical History Stye Finger pain, left Ringing in ears Epidermal inclusion cyst Abdominal wall abscess Abscess Age-related osteoporosis without current pathological fracture Hypercalcemia Breast cancer screening by mammogram Vaginal cyst Renal insufficiency Macular degeneration Diverticulitis Glaucoma Bipolar disorder Hypercholesterolemia Obesity (BMI 30-39.9) Hypertension Osteopenia Nontoxic multinodular goiter Asthma Onychomycosis Surgical History History of breast biopsy H/O elbow surgery Family History Father CVD (cardiovascular disease) Myocardial infarction Mother No problems noted. Maternal Aunt Uterine cancer Family/Other Breast cancer Social History Household Members: Children Housing: Apartment Are you a primary home child care provider to a significant other at home: No Do you presently have visiting nurse or other home services: No Alcohol intake: never Patient Tobacco Use Status: Never used Tobacco Tobacco use type: Cigarette e-Cigarette/Vaping Use: Never Used Second Hand Smoke Exposure: No service: No Current occupational status: retired Current occupational exposures/hazards: No Cognitive needs: No Hearing needs: No Vision needs: Yes Female Reproductive History Menstrual Age of Menarche: 13 Questionnaire PHQ-9 Over the last 2 weeks, how often have you been bothered by any of the following problems? 1. Little interest or pleasure in doing things: not at all 2. Feeling down, depressed, or hopeless: not at all 3. Trouble falling or staying asleep, or sleeping too much: not at all 4. Feeling tired or having little energy: not at all 5. Poor appetite or overeating: not at all 6. Feeling bad about yourself - or that you are a failure or have let yourself or your family down: not at all 7. Trouble concentrating on things, such as reading the newspaper or watching television: not at all 8. Moving or speaking so slowly that other people could have noticed. Or the opposite - being so fidgety or restless that you have been moving around a lot more than usual: not at all 9. Thoughts that you would be better off or of hurting yourself in some way: not at all Total score: 0 Depression Screening Interpretation: Negative Depression Screening Done: Yes 80205 - PHQ-9 Billing: Yes Source: Developed by Drs. Juan Tsang, Loretta Mead, Pérez Anderson and colleagues, with an educational mirtha from [employer]. Thrive Questionnaire Date Thrive assessed: 06/19/24 I am a: Patient What is your living situation today?: I have a steady place to live Within the past 12 months, did the food you bought not last and you didn't have the money to get more?: Never true Within the past 12 months, did you worry whether your food would run out before you got money to buy more?: Never true Do you have trouble paying for medicines?: No Do you have trouble getting transportation to medical appointments?: No Do you have trouble paying your heating and electricity bill?: No Do you have trouble taking care of your child, family member or friend?: No Do you have trouble with day-to-day activities such as bathing, preparing meals, shopping, managing finances, etc.?: No Are you currently unemployed and looking for a job?: No Are you interested in more education?: No Currently or been in a relationship where the following occur: No concerns reported THRIVE Score: 0 AUDIT C Alcohol Use Questionnaire (AUDIT-C) 1. How often do you have a drink containing alcohol?: Never 2. How many drinks containing alcohol do you have on a typical day when you are drinking?: 1 or 2 (0) 3. How often do you have six or more drinks on one occasion?: Never Total Score: 0 Score Reviewed/Action Taken: No MAURI-7 AMB Questionnaire MAURI-7 Date MAURI - 7 assessed: 06/19/24 Feeling nervous, anxious, or on edge: 0 = Not at all Not being able to stop or control worryin = Not at all Worrying too much about different things: 0 = Not at all Trouble relaxin = Not at all Being so restless that it is hard to sit still: 0 = Not at all Becoming easily annoyed or irritable: 0 = Not at all Feeling afraid as if something awful might happen: 0 = Not at all Total MAURI-7 score (0-4 normal; 5-9 mild; 10-14 moderate; 15-21 severe): 0 Source: Developed by Drs. Juan Tsang, Loretta Mead, Pérez Anderson and colleagues, with an educational mirtha from [employer]. Physical exam (Primary Care) Vital Signs: Last Vital Signs Pulse 77 06/19/24 12:28 BP 124/76 06/19/24 12:28 Pulse Ox 98 06/19/24 12:28 Oxygen Delivery Method Room Air 06/19/24 12:28 BMI result Body Mass Index 34.4 Tobacco/Smoking Status: Tobacco use Status Tobacco use date assessed 06/19/24 06/19/24 12:34 Patient Tobacco Use Status Never used Tobacco 06/19/24 12:34 Tobacco use type Cigarette 06/19/24 12:34 e-Cigarette/Vaping Use Never Used 06/19/24 12:34 PHQ-9: PHQ-9 Score PHQ-9: Total score 0 06/19/24 12:34 Depression Screening Interpretation: Negative Thrive Assessment: Date of Thrive Assessment Date Thrive assessed 06/19/24 06/19/24 12:34 Currently or been in a relationship where the following occur: No concerns reported Const General: alert; No acute distress Eyes Conjunctivae: conjunctivae normal Resp Auscultation: clear to auscultation bilaterally Cardio Rate: regular rate Rhythm: regular rhythm GI Inspection: Yes normal to inspection Extrem General: Yes normal to inspection and No edema Coding Level of Care Code Est Pt Level 4 (92744) Complex EM visit Add On G2211 Diagnoses Obesity (BMI 30-39.9) E66.9 Essential hypertension I10 Hypertension type: essential hypertension Hypercholesterolemia E78.00 Thrombocytosis D47.3 Mild asthma without complication, unspecified whether persistent J45.909 Asthma severity: mild Asthma persistence: unspecified Asthma complication type: uncomplicated Hepatic steatosis K76.0 Slow transit constipation K59.01 Constipation type: slow transit constipation Additional Codes PHQ-9 - 62485 - PHQ-9 Billing: Yes ([id number]) Assessment & Plan Assessment & Plan (1) Obesity (BMI 30-39.9): Code(s): E66.9 - Obesity, unspecified Category: Medical Plan: Diet and exercise (2) Hypertension: Code(s): I10 - Essential (primary) hypertension Category: Medical Qualifiers: Hypertension type: essential hypertension Qualified Code(s): I10 - Essential (primary) hypertension Plan: Continue with blood pressure medication. Decrease salt intake and exercise on losartan 100 mg once a day metoprolol 100 mg once a day (3) Hypercholesterolemia: Code(s): E78.00 - Pure hypercholesterolemia, unspecified Category: Medical Plan: Avoid fried foods, chicken skin, eggs, butter margarine, pastries and meat. Be it pork or beef they have a lot of cholesterol LDL goal of less than 130 and triglyceride of less than 150. (4) Thrombocytosis: Comment: Essential thrombocytosis Code(s): D47.3 - Essential (hemorrhagic) thrombocythemia Category: Medical Plan: Continue to monitor. Patient is following up with Hematology-Oncology (5) Asthma: Code(s): J45.909 - Unspecified asthma, uncomplicated Category: Medical Qualifiers: Asthma severity: mild Asthma persistence: unspecified Asthma complication type: uncomplicated Qualified Code(s): J45.909 - Unspecified asthma, uncomplicated Plan: Continue with asthma medication albuterol inhaler as needed (6) Hepatic steatosis: Code(s): K76.0 - Fatty (change of) liver, not elsewhere classified Category: Medical Plan: Low-fat diet and exercise (7) Constipation: Code(s): K59.00 - Constipation, unspecified Category: Medical Qualifiers: Constipation type: slow transit constipation Qualified Code(s): K59.01 - Slow transit constipation Plan: Three rules for constipation 1. Diet need to have a high fiber diet less of meat 2. Increase oral fluids 3. Exercise Plan - Constipation: Initiate MiraLax powder, to be mixed with water. Recommend inc reasing fiber intake with dietary modifications and prescribe Metamucil for additional fiber supplementation. Monitor symptom progression. - Essential Hypertension: Continue current medications; losartan 100 mg once daily and metoprolol 100 mg once daily. Ensure losartan prescription is filled at [facility] and metoprolol at [facility]. - Hypercholesterolemia: Continue low-fat diet with a target LDL goal of less than 130 mg/dL and triglycerides of less than 150 mg/dL. - Asthma: Continue with as-needed use of albuterol inhaler. - Thrombocytosis: Maintain current medications with hydroxyurea and baby aspirin. Continue surveillance with hematology/oncology. - Bipolar Disorder: Continue current psychiatric management with Zyprexa, discussing side effects if impacting daily activities. - Preventive Care: Advise ongoing COVID-19 precautions and maintain vaccinations as per standard guidelines. - Scheduled Follow-up: Arrange next evaluation in three months to monitor intercurrent complaints and any changes in chronic conditions' management. Medications: New polyethylene glycol 3350 (Miralax) 17 grams PO DAILY 30 ea 8RF K59.01 - Slow transit constipation psyllium husk 0.4 grams PO BEDTIME PRN 30 caps 4RF constipation K59.01 - Slow transit constipation Refilled metoprolol succinate ER 100 mg PO DAILY 90 days 90 tabs 3RF I10 - Essential (primary) hypertension losartan 100 mg PO DAILY 90 tabs 3RF I10 - Essential (primary) hypertension
[2024-06-19 12:28] VITALS: BP 124/76; PULSE 77; O2SAT 98; BMI 34.4
--- OUTSIDE RECORDS SUMMARY | 2024-06-19 13:33 | XMS_ITS ---
Demographics Address [address] [place] [address] Mobile Preferred Language en Marital Status Unknown Islam Affiliation Unknown Race Ethnic Group or Author Organization [facility] Address [address] [place] [id number] Care Team Providers Care Warehouse Freight Handler Name Role Phone Vipul Shahid MD Primary Care Provider Juan Clifford [phone] ALLERGIES No Known Allergies REASON FOR VISIT Patient presents today for a COLON SCREENING MEDICATIONS Medication SIG (Take, Route, Frequency, Duration) Notes Start Date End Date Status Metoprolol Succinate ER 100 MG 1 tablet Orally Once a day Active clonazePAM 2 MG TAKE 1 TABLET AT BED TIME Oral for 30 Active Losartan Potassium 50 MG TAKE 1 TABLET B Y MOUTH DAILY TO REPLACE DIOVAN Oral for 90 Active Vitamin D Active Hydroxyurea 500 MG Oral for 90 Active Fish Oil 1000 MG 1 capsule Orally Onc e a day Active Vitamin C 500 MG Orally Act milla Docusate Sodium 100 MG TAKE ONE CAPSULE TWICE A DAY Oral for 30 Active Aspirin Low Dose 81 MG TAKE 1 TABLET BY MOUTH EVERY DAY Oral for 90 Active OLANZapine 10 MG TAKE 1 TABLET AT BED TIME Oral for 30 Active PROBLEMS Problem Type ICD Code Onset Dates Problem Status W/U Status Risk SNOMED Code Notes Problem Encounter for screening for malignant neoplasm of colon (Z12.11) Active confirmed Screening for malignant neoplasm of colon (225089675) Problem Aspirin long-term use (Z79.82) Active confirmed Long-term current use of aspirin (2911602432792 03) VITAL SIGNS BMI 33.83 kg/m2 12/20/2023 Blood pressure systolic 00 mm Hg 12/20/19 24 Blood pressure diastolic 00 mm Hg 024 Height 63 in 12/20/2023 Weight 191 lbs 12/20/2023 Encounters Encounter Location Date Provider Diagnosis [facility] [address] [place] [address] 12/20/2023 Juan Gloria Encounter for screening for malignant neoplasm of colon Z12.11 and Aspirin long-term use Z79.82 ASSESSMENTS Encounter Date Diagnosis Assessment Notes Treatment Notes Treatment Clinical Notes 12/20/2023 Encounter for screening for malignant neoplasm of colon (ICD-10 - Z12.11) Stop aspirin and fish oil for 1 week before the colonoscopy 12/20/2023 Aspirin long-term use (ICD-10 - Z79.82) PLAN OF TREATMENT Treatment Notes Assessment Notes Encounter for screening for malignant neoplasm of colon Stop aspirin and fish oil for 1 week bef ore the colonoscopy Future Test Test Name Order Date COLONOSCOPY 12/20/2023 Next Appt Details Follow Up: prn, Reason: Progress Notes * Examination Category Sub-Category Detail Notes General Examination GENERAL APPEARANCE: pleasant , well nourished, well developed, in no acute distress HEAD: EYES: sclera non-icteric EARS: NOSE: THROAT: NECK/THYROID: no cervical lymphade nopathy, neck supple HEART: S1, S2 normal CHEST: LUNGS: clear to auscultatio n bilaterally ABDOMEN: normal bowel sounds, no guarding or rigidity, no guarding or rigidity, no masses palpable, soft, nontender, nondistended NEUROLOGIC: alert and oriented SKIN: nonjaundiced, no spi whitney angiomata EXTREMITIES: no edema PERIPHERAL PULSES: BACK: BREASTS: MUSCULOSKELETAL: MALE GENITOURINARY: LYMPH NODES: RECTAL EXAM: FEMALE GENITOURINARY: ORAL CAVITY: mucosa moist
--- OUTSIDE RECORDS SUMMARY | 2024-06-19 13:33 | XMS_ITS ---
Demographics Address [address] [place] [address] Mobile Preferred Language en Marital Status Unknown Congregational Affiliation Unknown Race Ethnic Group or Author Organization [facility] Address [address] [place] [address] Care Team Providers Care Dispute Coordinator Name Role Phone Po Vipul CARO Primary Care Provider Juan Clifford [phone] REASON FOR VISIT screening PROBLEMS Problem Type ICD Code Onset Dates Problem Status W/U Status Risk SNOMED Code Notes Problem Diverticulosis of large intestine without perforation or abscess without bleeding (K57.30) Active confirmed Diverticul ar disease of colon (591739171) Encounters Encounter Location Date Provider Diagnosis [facility] [address] [place], [place] [id number] 04/02/2024 Juan Gloria Colon cancer scree stephanie Z12.11 ; Diverticulosis of large intestine without perforation or abscess without bleeding K57.30 and Other hemorrhoids K64.8 ASSESSMENTS Encounter Date Diagnosis Assessment Notes Treatment Notes Treatment Clinical Notes 04/02/2024 Colon cancer screening (ICD-10 - Z12.11) 04/02/2024 Diverticulosis of large intestine without perforation or abscess without bleeding (ICD-10 - K57.30) 04/02/2024 Other hemorrhoids (ICD-10 - K64.8) PLAN OF TREATMENT No Information
--- OUTSIDE RECORDS SUMMARY | 2024-06-19 13:34 | XMS_ITS ---
Demographics Address [address] [place] [address] Mobile Preferred Language en Marital Status Unknown Oriental Orthodox Affiliation Unknown Race Ethnic Group or Author Organization [facility] Address [address] [place] [address] Care Team Providers Care Software Configuration Manager Name Role Phone Vipul Shahid MD Primary Care Provider Juan Clifford [phone] REASON FOR VISIT bowel prep MEDICATIONS Medication SIG (Take, Route, Frequency, Duration) Notes Start Date End Date Status MiraLax (colon prep) 17 GM/SCOOP 1 238Gm bottle mixed with Gatorade or Crystal Light Orally begin at 5:00 p.m. the day before the procedure for 1 day 12/24/2023 Active Dulcolax (colon prep) 5 MG take at 3:00 p.m and 7:00p.m. Orally two tablets twice a day for one day for 1 day 12/24/2023 Active Encounters Encounter Location Date Provider Diagnosis [facility] [address] [place] [phone] 12/20/2023 Juan Gloria PLAN OF TREATMENT Medication Medication Name Sig Start Date Stop Date Notes MiraLax (colon prep) 17 GM/SCOOP 1 238Gm bottle mixed with Gatorade or Crystal Light Orally begin at 5:00 p.m. the day before the procedure for 1 day 12/24/2023 Dulcolax (colon prep) 5 MG take at 3:00 p.m and 7:00p.m. Orally two tablets twice a day for one day for 1 day 12/24/2023
--- OUTSIDE RECORDS SUMMARY | 2024-06-19 13:34 | XMS_ITS | Patient Health Record ---
Demographics Address [address] [place] [address] Mobile Preferred Language en Marital Status Unknown Baptism Affiliation Unknown Race Ethnic Group or Author Organization [facility] Address [address] [place] [address] Care Team Providers Care Dry Wall Installations Mechanic Name Role Phone Vipul Shahid MD Primary Care Provider Juan Clifford [phone] ALLERGIES No Known Allergies REASON FOR REFERRAL No Information MEDICATIONS Medication SIG (Take, Route, Frequency, Duration) Notes Start Date End Date Status Metoprolol Succinate ER 100 MG 1 tablet Orally Once a day Active MiraLax (colon prep) 17 GM/SCOOP 1 238Gm bottle mixed with Gatorade or Crystal Light Orally begin at 5:00 p.m. the day before the procedure for 1 day 12/24/2023 Active Dulcolax (colon prep) 5 MG take at 3:00 p.m and 7:00p.m. Orally two tablets twice a day for one day for 1 day 12/24/2023 Active Fish Oil 1000 MG 1 capsule Orally Onc e a day Active Docusate Sodium 100 MG TAKE ONE CAPSULE TWICE A DAY Oral for 30 Active Vitamin C 500 MG Orally Act milla Aspirin Low Dose 81 MG TAKE 1 TABLET BY MOUTH EVERY DAY Oral for 90 Active OLANZapine 10 MG TAKE 1 TABLET AT BED TIME Oral for 30 Active clonazePAM 2 MG TAKE 1 TABLET AT BED TIME Oral for 30 Active Losartan Potassium 50 MG TAKE 1 TABLET B Y MOUTH DAILY TO REPLACE DIOVAN Oral for 90 Active Vitamin D Active Hydroxyurea 500 MG Oral for 90 Active SOCIAL HISTORY Sex Assigned At : Social History Observation Description Sex Assigned At Unknown PROBLEMS Problem Type ICD Code Onset Dates Problem Status W/U Status Risk SNOMED Code Notes Problem Encounter for screening for malignant neoplasm of colon (Z12.11) Active confirmed Screening for malignant neoplasm of colon (451563006) Problem Diverticulosis of large intestine without perforation or abscess without bleeding (K57.30) Active confirmed Diverticul ar disease of colon (487576719) Problem Aspirin long-term use (Z79.82) Active confirmed Long-term current use of aspirin (82713386960229 3) VITAL SIGNS Blood pressure diastolic 00 mm Hg 12/20/2023 Height 63 in 12/20/2023 Blood pressure systolic 00 mm Hg 12/20/2023 Weight 191 lbs 12/20/2023 BMI 33.83 kg/m2 12/20/2023 Encounters Encounter Location Date Provider Diagnosis [facility] [place] [facility] [address] [place], [place] [phone] 04/02/2024 Juan Gloria Colon cancer screeni ng Z12.11 ; Diverticulosis of large intestine without perforation or abscess without bleeding K57.30 and Other hemorrhoids K64.8 [facility] [address] [place] [phone] 12/20/2023 Juan Gloria Encounter for screen ing for malignant neoplasm of colon Z12.11 and Aspirin long-term use Z79.82 [facility] [address] [place] [phone] 12/20/2023 Juan Gloria ASSESSMENTS Encounter Date Diagnosis Assessment Notes Treatment Notes Treatment Clinical Notes 04/02/2024 Colon cancer screening (ICD-10 - Z12.11) 04/02/2024 Diverticulosis of large intestine without perforation or abscess without bleeding (ICD-10 - K57.30) 12/20/2023 Encounter for screening for malignant neoplasm of colon (ICD-10 - Z12.11) Stop aspirin and fish oil for 1 week before the colonoscopy 12/20/2023 Aspirin long-term us e (ICD-10 - Z79.82) 04/02/2024 Other hemorrhoids (ICD-10 - K64.8) PLAN OF TREATMENT Future Test Test Name Order Date COLONOSCOPY 09/06/2013 COLONOSCOPY 12/20/2023 Insurance Providers Payer Name Payer Address Payer Phone Subscriber Number Group Number Insured Name Patient Relationship to Insured Coverage Start Date Coverage End Date MEDICARE OF [place] [address] [place] [address] [id number] AGUSTIN QUINTANA Self - patient is the insured MEDICAID OF [employer] [address] [place] [address] [id number] AGUSTIN QUINTANA Self - patient is the insured MEDICAL (GENERAL) HISTORY Medical History History ICD Code Hypertension Denies [place],DM,CVA,Lung disease,renal dise ase Anxiety/Depression Asthma- Glaucoma- 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 Mancia Surgical History Surgery Date(Month/Year) lumpectomy, right breast--benign
== END 2024-06-19 13:00 | disposition home or self-care (01) ==
PROVIDERS: PCP Internal Medicine; Visit Provider Internal Medicine
DX: I10 Essential (primary) hypertension (principal); D47.3 Essential (hemorrhagic) thrombocythemia; E66.9 Obesity, unspecified; Z68.34 Body mass index [BMI] 34.0-34.9, adult; E78.00 Pure hypercholesterolemia, unspecified; J45.909 Unspecified asthma, uncomplicated; K76.0 Fatty (change of) liver, not elsewhere classified; K59.01 Slow transit constipation

== ENCOUNTER → 2024-06-19 12:22 | Outpatient (BNVA) | payer MEDICARE, MEDICAID, SELFPAY | PROVIDERS: PCP Internal Medicine; Visit Provider Internal Medicine | DX: E66.9 Obesity, unspecified (principal); I10 Essential (primary) hypertension; E78.00 Pure hypercholesterolemia, unspecified; J45.909 Unspecified asthma, uncomplicated; D47.3 Essential (hemorrhagic) thrombocythemia; K76.0 Fatty (change of) liver, not elsewhere classified; K59.01 Slow transit constipation | CPT/HCPCS: 96127; 99212 ==

== ENCOUNTER 2024-08-29 11:59 | Emergency (ER) | payer MEDICARE, MEDICAID, SELFPAY ==
--- NOTE | 2024-08-29 | ECG_ITS ---
Test Reason : DIZZINIESS Blood Pressure : */* mmHG Vent. Rate : 51 BPM Atrial Rate : 51 BPM P-R Int : 158 ms QRS Dur : 86 ms QT Int : 426 ms P-R-T Axes : 40 -2 42 degrees QTcB Int : 392 ms Sinus bradycardia Otherwise normal ECG When compared with ECG of 26-Nov-2017 15:21, Vent. rate has decreased by 31 bpm QT has shortened Referred By: Generic ED Physician Electronically Signed By: SAKSHI ARIZA
[2024-08-29 12:34] VITALS: BP 167/89; BP 174/107; PULSE 62; PULSE 72; RESP 14; TEMP 36.8; O2SAT 97; BMI 34.8
--- NOTE | 2024-08-29 13:55 | MHC.EDTECH ---
Visual test was completed and documented.
[2024-08-29 13:58] LABS: Anion Gap 12 (12-20); Blood Urea Nitrogen 28 mg/dL (9-16); Calcium 9.3 mg/dL (8.4-10.2); Carbon Dioxide 22 mmol/L (22-29); Chloride 109 mmol/L (96-108); Creatinine Clr Calc Pharmacy 59.8; Estimated Glomerular Filt Rate > 60; Glucose Fasting 106 mg/dL (60-99); Potassium 4.5 mmol/L (3.3-5.1); Sodium 138 mmol/L (135-145)
[2024-08-29 14:03] LABS: Troponin-I High Sensitivity < 2.7 ng/L (<3.5-17.0)
[2024-08-29 14:16] LABS: Appearance Urine Clear; Color Urine Yellow; Glucose Urine UA Negative (Negative); Leukocyte Esterase Urine Negative (Negative); Nitrite Urine Negative (Negative); Specific Gravity - Urine <= 1.005 (1.005-1.025); Urine Blood Negative (Negative); Urine Ketones Negative (Negative); Urine Protein Negative (Neg-Trace)
[2024-08-29 14:21] LABS: Bacteria Urine None Seen (None Seen); Hyaline Casts Urine 0-2 /LPF (0-2); RBC Urine 0-2 /HPF (0-2); Squamous Epithelial Cell Urine 0-2 /HPF (0-2); WBC Urine 0-5 /HPF (0-5)
[2024-08-29 14:27] LABS: Basophils Percent Auto 0.4 % (0-2); Eosinophils Absolute Auto 0.1 X10*3/uL (0.0-0.4); Hematocrit 40.4 % (37.0-47.0); Hemoglobin 13.8 g/dl (12.0-16.0); Imm Gran Abs Auto 0.04 X10*3/uL (0.00-0.03); Imm Gran Pct Auto 0.4 % (0.0-0.4); Lymphocytes Absolute Auto 2.3 X10*3/uL (1.2-4.9); Mean Corpuscular HGB Conc 34.2 g/dl (31.0-35.0); Mean Corpuscular Hemoglobin 34.9 pg (27.0-33.0); Mean Corpuscular Volume 102.3 fL (80.0-98.0); Mean Platelet Volume 9.7 fL (9.4-12.3); Monocytes Absolute Auto 0.7 X10*3/uL (0.1-1.2); Monocytes Percent Auto 7.6 % (2-11); Neutrophils Absolute Auto 6.1 x10*3/uL (2.0-8.3); Neutrophils Percent Auto 65.6 % (45-73); Platelet Count 447 X10*3/uL (160-400); Red Blood Count 3.95 X10*6/uL (4.20-5.50); Red Cell Distribution Width 14.9 % (11.0-16.0); White Blood Count 9.3 X10*3/uL (4.8-10.8)
[2024-08-29 15:03] LABS: MANUAL DIFF FLAG NO
--- NOTE | 2024-08-29 15:53 | PC.NURSE ---
Pt awaiting ER provider; pt ambulatory with steady gait; 1 assist for safety; pt denies visual changes at this time; neuros intact
--- OUTSIDE RECORDS SUMMARY | 2024-08-29 15:53 | XMS_ITS ---
Demographics Address [address] [place] [address] Mobile Preferred Language en Marital Status Unknown Mandaeism Affiliation Unknown Race Ethnic Group or Author Organization [facility] Address [address] [place] [address] Care Team Providers Care Ibm Bpm Developer Name Role Phone Vipul Shahid MD Primary Care Provider Juan Clifford [phone] REASON FOR VISIT screening Problems Problem Type SNOMED Code ICD Code Onset Dates Problem Status W/U Status Risk Notes Problem Diverticular disease of colon (893184124) Diverticulosis of large intestine without perforation or abscess without bleeding (K57.30) Active confirmed Encounters Encounter Location Date Provider Diagnosis [facility] [place] [facility] [address] [place], [place] [id number] 04/02/2024 Juan Gloria Colon cancer scree stephanie [...] No Information Progress Notes * AGUSTIN QUINTANA:[birth year] (73 yo F)Acc No.[id number]:04/02/2024 COLON WITH MAC Patient:?AGUSTIN QUINTANA Provider:?Juan Gloria MD :1950???Age:73 Y???Sex:Female D ate:04/02/2024 Address:[address] [place] [address] [address], [place], [place] Pcp:Vipul Shahid MD Subjective: * Chief Complaints: * ???1. Screening. * Medical History:? Objective: * Vitals:? Assessment: * Assessment: 1.?Colon cancer screening - Z12.11 (Primary)???2.?Diverticulosis of large intestine without perforation or abscess without bleeding - K57.30???3.?Other hemorrhoids - K64.8??? Plan: * Treatment: * Procedure Codes:?G0121 COLOR EC CNCR SCR;COLNSCPY NO HI RSK, 0529F INTRVL 3+YRS PTS CLNSCP DOCD, 0528F RCMND FLW-UP 10 YRS DOCD, Modifiers: 1P * * The named appointment provid er may or may not be the originator of this progress note, and it is not deemed complete until electronically signed by the appointment provider. Sign off status: Pending * Provider:?Juan Gloria MD Date:? 024 Generated for Hyacinth stone/Jono/eTransmitting on:?08/29/2024 03:53 PM EDT
--- OUTSIDE RECORDS SUMMARY | 2024-08-29 15:53 | XMS_ITS ---
Demographics Address [address] [place] [address] Mobile Preferred Language en Marital Status Unknown Baptist Affiliation Unknown Race Ethnic Group or Author Organization [facility] Address [address] [place] [address] Care Team Providers Care Table Attendant Name Role Phone Vpiul Shahid MD Primary Care Provider Juan Clifford [phone] Allergies No Known Allergies REASON FOR VISIT Patient presents today for a COLON SCREENING Medications Medication SIG (Take, Route, Frequency, Duration) [...] AT BED TIME Oral for 30 Active Problems Problem Type SNOMED Code ICD Code Onset Dates Problem Status W/U Status Risk Notes Problem Screening for malignant neoplasm of colon (845909810) Encounter for screening for malignant neoplasm of colon (Z12.11) Active confirmed Problem Long-term current use of aspirin (9631026811587 03) Aspirin long-term use (Z79.82) Active confirmed Vital Signs Blood pressure systolic 00 mm Hg 12/20/19 24 Blood pressure diastolic 00 mm Hg 024 Height 63 in 12/20/2023 Weight 191 lbs 12/20/2023 BMI 33.83 kg/m2 12/20/2023 Encounters Encounter Location Date Provider Diagnosis [facility] [address] [place] [address] 12/20/2023 Juan Gloria Encounter for screening for malignant neoplasm of colon Z12.11 and Aspirin long-term use Z79.82 Assessments Encounter Date Diagnosis (ICD Code) Assessment Notes Treatment Notes Treatment Clinical Notes Section Notes 12/20/2023 Encounter for screening for malignant neoplasm of colon (ICD-10 - Z12.11) Stop aspirin and fish oil for 1 week before the colonoscopy Overall, Jennifer appears quite well. I did recommend a followup colonoscopy for further screening purposes given her last exam being over 10 years ago. We did review the rationale for that in regard to colon cancer prevention. Full consent is obtained for this, including risks of bleeding and perforation. The procedure will be done with monitored anesthesia care. She was given the below instructions regarding adjustment of her medications for the procedure. Jennifer was comfortable with this plan. Thank you again for allowing me to participate in Jennfier's care. I shall continue to keep you advised of her progress. 12/20/2023 Aspirin long-term use (ICD-10 - Z79.82) Overall, Jennifer appears quite well. I did recommend a followup colonoscopy for further screening purposes given her last exam being over 10 years ago. We did review the rationale for that in regard to colon cancer prevention. Full consent is obtained for this, including risks of bleeding and perforation. The procedure will be done with monitored anesthesia care. She was given the below instructions regarding adjustment of her medications for the procedure. Jennifer was comfortable with this plan. Thank you again for allowing me to participate in Jennifer's care. I shall continue to keep you advised of her progress. Plan Of Treatment Treatment Notes Assessment Notes Encounter for screening for malignant neoplasm of colon Stop aspirin and fish oil for 1 week bef ore the colonoscopy Future Test Test Name Order Date COLONOSCOPY 12/20/2023 Next Appt Details Follow Up: prn, Reason: Progress Notes * JENNIFER QUINTANA:[birth year] (73 yo F)Acc No.[id number]:12/20/2023 Progress Notes Patient:?LILIANJENNIFER Provider:?Juan Gloria MD :1950???Age:73 Y???Sex:Female D ate:12/20/2023 Address:[address] [place] [address] [facility] [address], [place], [place] Pcp:Vipul Shahid MD Subjective: * Chief Complaints: * ???Patient presents today fo r a COLON SCREENING * HPI: ???incontinence:? I saw Jennifer in the office today for evaluation of colorectal cancer screening. She is accompanied by her , Perez. ?I last saw Jennifer in November of 2013, at which time she underwent a negative screening colonoscopy. She presently feels well. She enjoys a good appetite, without any significant heartburn or dysphagia. She denies abdominal pain, jaundice, nor unintentional weight loss. She denies any change in bowel habits. She denies any signs of bleeding, although given her poor vision she could not say this definitively. She denies any known family history of colorectal cancer. Laboratories she revealed normal chemistries and renal function, normal LFTs, and a normal CBC with a hemoglobin of 13.9 and platelet count of 392,000. 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 * Medical History:? * Surgical History:?lumpectomy , right breast--benign * Hospitalization/Major Diagno stic Procedure:?No Hospitalization History. * Family History:?Father: dece ased.?Mother: .? No colorectal cancer. * Social History:?Tobacco Use:?Tobacco Use/Smoking?Are you a: nonsmoker.?Drugs/Alcohol:?Alcohol Screen?Points: 0, Interpretation: Negative.?Miscellaneous:?Marital status: . Occupation: unemployed. ???Nonsmoker; no sig alcohol. * Medications:?TakingMetoprolo l Succinate ER 100 MG Tablet Extended Release 24 Hour 1 tablet Orally Once a dayVitamin D Hydroxyurea 500 MG Capsule Oral clonazePAM 2 MG Tablet TAKE 1 TABLET AT BEDTIME Oral Losartan Potassium 50 MG Tablet TAKE 1 TABLET BY MOUTH DAILY TO REPLACE DIOVAN Oral Aspirin Low Dose 81 MG Tablet Chewable TAKE 1 TABLET BY MOUTH EVERY DAY Oral OLANZapine 10 MG Tablet TAKE 1 TABLET AT BEDTIME Oral Docusate Sodium 100 MG Capsule TAKE ONE CAPSULE TWICE A DAY Oral Vitamin C 500 MG Capsule Orally Fish Oil 1000 MG Capsule 1 capsule Orally Once a dayTaking Metoprolol Succinate ER 100 MG Tablet Extended Release 24 Hour 1 tablet Orally Once a dayTaking Vitamin D Taking Hydroxyurea 500 MG Capsule Oral Taking clonazePAM 2 MG Tablet TAKE 1 TABLET AT BEDTIME Oral Taking Losartan Potassium 50 MG Tablet TAKE 1 TABLET BY MOUTH DAILY TO REPLACE DIOVAN Oral Taking Aspirin Low Dose 81 MG Tablet Chewable TAKE 1 TABLET BY MOUTH EVERY DAY Oral Taking OLANZapine 10 MG Tablet TAKE 1 TABLET AT BEDTIME Oral Taking Docusate Sodium 100 MG Capsule TAKE ONE CAPSULE TWICE A DAY Oral Taking Vitamin C 500 MG Capsule Orally Taking Fish Oil 1000 MG Capsule 1 capsule Orally Once a dayDiscontinuedColyte w Flavor Packs 240 GM Solution Reconstituted as directed Orally as directedCalcitrate 315-250 MG-UNIT Tablet TAKE 1 TABLET BY MOUTH TWICE A DAY Oral Multi Vitamin/Minerals Tablet Orally Medication List reviewed and reconciled with the patientDiscontinued Colyte w Flavor Packs 240 GM Solution Reconstituted as directed Orally as directedDiscontinued Calcitrate 315-250 MG- UNIT Tablet TAKE 1 TABLET BY MOUTH TWICE A DAY Oral Discontinued Multi Vitamin/Minerals Tablet Orally Medication List reviewed and reconciled with the patient * Allergies:?N.K.D.A.yes[Aller gies Verified] Objective: * Vitals:?Wt: 191 lbs, Ht: 63 in, BMI:33.83 Index, BP: 00/00 mm Hg. * Examination: ???General Examination: ?GENERAL APPEARANCE:?pleasant, well nourished, well developed, in no acute distress.?EYES:?sclera non-icteric.?ORAL CAVITY:?mucosa moist.?NECK/THYROID:?no cervical lymphadenopathy, neck supple.?SKIN:?nonjaundiced, no spider angiomata.?HEART:?S1, S2 normal.?LUNGS:?clear to auscultation bilaterally.?ABDOMEN:?normal bowel sounds, no guarding or rigidity, no guarding or rigidity, no masses palpable, soft, nontender, nondistended.?EXTREMITIES:?no edema.?NEUROLOGIC:?alert and oriented.? Assessment: * Assessment: 1.?Aspirin long-term use - Z 79.82 (Primary)?2.?Encounter for screening for malignant neoplasm of colon - Z12.11? Overall, Jennifer appears quit e well. I did recommend a followup colonoscopy for further screening purposes given her last exam being over 10 years ago. We did review the rationale for that in regard to colon cancer prevention. Full consent is obtained for this, including risks of bleeding and perforation. The procedure will be done with monitored anesthesia care. She was given the below instructions regarding adjustment of her medications for the procedure. Jennifer was comfortable with this plan. Thank you again for allowing me to participate in Jennifer's care. I shall continue to keep you advised of her progress. Plan: * Treatment: Notes: Stop aspirin and fish oil for 1 week before the colonoscopy?? * Procedure Codes:?3017F COLOR ECTAL CA SCREEN DOC [id number] TOBACCO NON-FWJCY8838 BP SCR NOT PRFRM REC REASON NOS * Preventive Medicine:? ??Urinary Incontinence:?Urinary Incontinence?Assessment:?Absent,?Plan of care documented:?No, reason not specified.? ??Screenings:?Fall Risk Screening?Fall Risk Assessment:?No falls in the past year.? * Follow Up:?prn * * Sign off status: Completed true * Provider:?Juan Gloria MD Date:? 024 Generated for Printi bertha/Jono/eTransmitting on:?08/29/2024 03:53 PM EDT History and Physical Notes * HPI (History of Present Illness) Category Sub-Category Detail Notes Category Not es incontinence I saw Jennifer in the office today for evaluation of colorectal cancer screening. She is accompanied by her , Perez. I last saw Jennifer in November of 2013, at which time she underwent a negative screening colonoscopy. She presently feels well. She enjoys a good appetite, without any significant heartburn or dysphagia. She denies abdominal pain, jaundice, nor unintentional weight loss. She denies any change in bowel habits. She denies any signs of bleeding, although given her poor vision she could not say this definitively. She denies any known family history of colorectal cancer. Laboratories she revealed normal chemistries and renal function, normal LFTs, and a normal CBC with a hemoglobin of 13.9 and platelet count of 392,000. Examination Category Sub-Category Detail Notes Category Not es General Examination GENERAL APPEARANCE: pleasant , well [...]
--- OUTSIDE RECORDS SUMMARY | 2024-08-29 15:53 | XMS_ITS ---
Demographics Address [address] [place] [address] Mobile Preferred Language en Marital Status Unknown Moravian Affiliation Unknown Race Ethnic Group or Author Organization [facility] Address [address] [place] [address] Care Team Providers Care Production Control Supervisor Name Role Phone Vipul Shahid MD Primary Care Provider Juan Clifford [phone] REASON FOR VISIT bowel prep Medications Medication SIG (Take, Route, Frequency, Duration) [...] Active Encounters Encounter Location Date Provider [facility] [address] [facility] [address] [place] [address] 12/20/2023 Juan Gloria Plan Of Treatment Medication Medication Name Sig [...] for one day for 1 day 12/24/2023 Progress Notes * AGUSTIN QUINTANA:[birth year] (73 yo F)Acc No.[id number]:12/20/2023 Patient:?AGUSTIN QUINTANA :1950???Age:73 Y???Sex:Female Address:[address] [place] [address], [address] * Refills? Start Dulcolax (colon prep) Tablet Delayed Release, 5 MG, Orally, 4, take at 3:00 p.m and 7:00p.m., two tablets twice a day for one day, 1 day, Refills=0 Start MiraLax (colon prep) Powder, 17 GM/SCOOP, Orally, 1, 1 238Gm bottle mixed with Gatorade or Crystal Light, begin at 5:00 p.m. the day before the procedure, 1 day, Refills=0 * true * Date:? Generated for Hyacinth stone/Jono/Richieitting on:?08/29/2024 03:53 PM EDT
--- OUTSIDE RECORDS SUMMARY | 2024-08-29 15:53 | XMS_ITS | Patient Health Record ---
Author Organization [facility] Jerri yamilka Gentile Address [address] [place] [address] Care Team Providers Care Interior Mechanic Name Role Phone Vipul Shahid Primary Care Provider Arin Carver Unavailable [phone] William Bowen Unavailable [phone] Allergies No Known Allergies Reason For Referral No Information Medications Medication SIG (Take, Route, Frequency, Duration) Notes Start Date End Date Status Aspir-81 Active Metoprolol Succinate 100 MG 1 capsule Once a day Active clonazePAM 0.5 MG 1 tablet at bedtime Orally Once a day Active OLANZapine 5 MG 1 tablet Orally Once a day for 30 days Active Doxycycline 100mg Not-Taki ng Ciclopirox Olamine 0.77 % 1 application to affected area Externally Twice a day to effected areas on feet for 30 days Active Calcium 600-400 MG-UNIT 1 tablet with a meal Orally Once a day for 30 day(s) Not-Taking Losartan Potassium 100 MG 1 tablet Orally Once a day for 30 day(s) Active Docusate Sodium 100 MG 1 capsule as need ed Orally Once a day for 30 day(s) Active Vitamin D Active Immunizations Vaccine Route Administration Date Status Comme nts COVID-19 Pfizer BioNTech Vaccine Unknown 08/05/2020 Adm inistered COVID-19 Pfizer BioNTech Vaccine Unknown 08/27/2020 Adm inistered Social History Tobacco Use: Social History Observation Description Date Details (start date - stop date) Never Smoker NA - NA Tobacco Use/Smoking Question Answer Notes Are you a: nonsmoker Additional Findings: Tobacco Non-User Current no n-smoker Alcohol Screen Question Answer Notes Did you have a drink containing alcohol in the p ast year? No Points 0 Interpretation Negative Tobacco use other than smoking: Question Answer Notes Are you an other tobacco user? No Problems Problem Type SNOMED Code ICD Code Onset Dates Problem Status W/U Status Risk Notes Problem Bilateral atherosclerosis of arteries of lower limbs (disorder) (57686681048755575 ) Unspecified atherosclerosis of [place] arteries of extremities, bilateral legs (I70.203) Active confirmed Vital Signs Height 5ft 3in in 01/06/2024 Weight 186 lbs 01/06/2024 BMI 32.94 kg/m2 01/06/2024 Encounters Encounter Location Date Provider [facility] [address] [address] 01/06/2024 William Bowen Tinea unguium B35.1 ; Pain in right toe(s) M79.674 ; Pain in left toe(s) M79.675 ; Skin disease L98.9 ; Unspecified atherosclerosis of [place] arteries of extremities, bilateral legs I70.203 ; Xerosis cutis L85.3 and Tinea pedis B35.3 [facility] [address] [place] [address] 05/08/2024 Arin Angel Assessments Encounter Date Diagnosis (ICD Code) Assessment Notes Treatment Notes Treatment Clinical Notes Section Notes 01/06/2024 Tinea unguium (ICD-10 - B35.1) 01/06/2024 Pain in right toe(s) (ICD-10 - M79.674) 01/06/2024 Pain in left toe(s) (ICD-10 - M79.675) 01/06/2024 Skin disease (ICD-10 - L98.9) 01/06/2024 Unspecified atherosclerosis of [place] arteries of extremities, bilateral legs (ICD-10 - I70.203) 01/06/2024 Xerosis cutis (ICD-10 - L85.3) 01/06/2024 Tinea pedis (ICD-10 - B35.3) Plan Of Treatment Pending Test Test Name Order Date 20802-ATSK SKIN LESIONS, OVER 4 02/10/20 22 70056-OEPM SKIN LESIONS, 2 TO 4 08/11/19 23 01305-XNPW SKIN LESIONS, 2 TO 4 04/22/20 20 72795-TVPO SKIN LESIONS, 2 TO 4 08/27/19 21 96767-MLWS SKIN LESIONS, 2 TO 4 11/26/19 21 08293-CPUW SKIN LESIONS, 2 TO 4 02/28/20 21 34498-WIJTLVJO OF HEMATOMA/FLUID 023 Insurance Providers Payer Name Payer Address Payer Phone Subscriber Number Group Number Insured Name Patient Relationship to Insured Coverage Start Date Coverage End Date [employer] [address] [place] [address] [id number] Jennifer Avelar Self - patient is the insured Medical (General) History Medical History History ICD Code Anxiety CAD (Cholesterol) Cataracts Depression Diverticulosis Glaucoma High blood pressure Macular degeneration Chicken pox Surgical History Surgery Date(Month/Year) Breast Surgery right ten years ago
--- OUTSIDE RECORDS SUMMARY | 2024-08-29 15:54 | XMS_ITS ---
Author Organization [facility] Address [address] [place] [address] Care Team Providers Care Environmental Coordinator Name Role Phone Vipul Shahid Primary Care Provider Arin Carver [phone] REASON FOR VISIT Transfer to Different Provider Encounters Encounter Location Date Provider Diagnosis [facility] [address] [place] [address] 05/11/2024 Arin Angel Plan Of Treatment No Information Progress Notes * Jennifer QUIN[birth year]DOB:[birth year] (73 yo F)Acc No.[id number]:05/11/2024 Progress Note Patient:?LILIAN Jennifer Provider:?Arin Angel DPM :1950???Age:73 Y???Sex:Female D ate:05/11/2024 Address:[address] [place] [address] Pcp:Vipul Shahid Subjective: * Chief Complaints: * ???1. Transfer to Different Provider. * Medical History:? Objective: * Vitals:? Assessment: Plan: * Treatment: * Images: * The named appointment provid er may or may not be the originator of this progress note, and it is not deemed complete until electronically signed by the appointment provider. Sign off status: Pending * Provider:?Arin Angel DPM Date:?0 05/11/2024 Generated for Printi ng/Favictorinog/eTransmitting on:?08/29/2024 03:53 PM EDT
--- OUTSIDE RECORDS SUMMARY | 2024-08-29 15:54 | XMS_ITS ---
Author Organization [facility] Address [address] [place] [address] Care Team Providers Care Dinkey Skinner Name Role Phone Vipul Shahid Primary Care Provider Arin Carver Unavailable [phone] William Bowen Unavailable [phone] Allergies No Known Allergies REASON FOR VISIT Painful nail(s) aggrevated by shoes and causing difficulty standing/walking. Medications Medication SIG (Take, Route, Frequency, Duration) Notes Start Date End Date Status Doxycycline 100mg Not-Taki ng Calcium 600-400 MG-UNIT 1 tablet with a meal Orally Once a day for 30 day(s) Not-Taking Losartan Potassium 100 MG 1 tablet Orally Once a day for 30 day(s) Active Docusate Sodium 100 MG 1 capsule as need ed Orally Once a day for 30 day(s) Active Vitamin D Active Aspir-81 Active Metoprolol Succinate 100 MG 1 capsule Once a day Active clonazePAM 0.5 MG 1 tablet at bedtime Orally Once a day Active OLANZapine 5 MG 1 tablet Orally Once a day for 30 days Active Ciclopirox Olamine 0.77 % 1 application to affected area Externally Twice a day to effected areas on feet for 30 days Active Social History Tobacco Use: Social History Observation [...] Are you an other tobacco user? 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, bilateral legs I70.203 ; Xerosis cutis L85.3 and Tinea pedis B35.3 Assessments Encounter Date Diagnosis (ICD Code) Assessment Notes Treatment Notes Treatment Clinical Notes Section Notes 01/06/2024 Tinea unguium (ICD-10 - B35.1) 01/06/2024 Pain in right toe(s) (ICD-10 - M79.674) 01/06/2024 Pain in left toe(s) (ICD-10 - M79.675) 01/06/2024 Skin disease (ICD-10 - L98.9) 01/06/2024 Unspecified atherosclerosis of ruby arteries of extremities, bilateral legs (ICD-10 - I70.203) 01/06/2024 Xerosis cutis (ICD-10 - L85.3) 01/06/2024 Tinea pedis (ICD-10 - B35.3) Plan Of Treatment Medication Medication Name Sig Start Date Stop Date Notes Ciclopirox Olamine 0.77 % 1 application to affected area Externally Twice a day to effected areas on feet for 30 days Next Appt Details Follow Up: 4 Months, Reason: Procedure Notes * Category Sub-Category Detail Notes [...] as necessary. Patient chooses, no pharmaceutical tx (72438) Keratoma Treatment Parring or Cutting o f Benign Hyperkeratotic Lesion(s) 32667 (2-4 Lesions) - The Benign hyperkeratotic lesions, as described above were pared, and/or cut utilizing a sterile #15 blade, tissue nippers, and/or dremel, Q8 Progress Notes * Jennifer QUINTANADOB:[birth year] (73 yo F)Acc No.[id number]:01/06/2024 Progress Note Patient:Jennifer Sanchez Provider:?William Bowen DPM :1950???Age:73 Y???Sex:Female D ate:01/06/2024 Address:[address] [place] [address] [address], [id number] Pcp:Vipul Shahid Subjective: * Chief Complaints: * ??? Painful nail(s) aggrevat ed by shoes and causing difficulty standing/walking. * HPI: ???Painful Nails:?Pt States Last PCP Visit:?Date:?08/05/2023 ???Skin problems:?Nature:?dryness, itching.?Location:?B/L , Forefoot, Interspace(s)/Between toe(s).? * ROS:?General/Constitutional:?Nausea?denies.?Vomiting?denies.?Hunger Thirst?denies.?Loss appetite?denies.?Chills?denies.?Fatigue?denies.?Fever?denies.?Night Sweats?denies.?Unexplained weight loss?denies.?Unexplained weight gain?denies.?HEENTM:?Dentures?denies.?Dizziness?denies.?Glasses/contacts?denies.?Retinopathy?de nies.?Blurred/double vision?denies.?TMJ?denies.?Discharge/drainage?denies.?Implants?denies.?Sore throat?denies.?Dental implants?denies.?Hard of hearing ?denies.?Difficulty chewing/swallowing/speaking?denies.?Nose bleeds?denies.?Sore mouth?denies.?Respiratory:?On Oxygen?denies.?Pneumonia/pleurisy?denies.?Bronchitis?denies.?Emphysema?denies.?C oughing?denies.?Cough blood?denies.?Shortness of breath?denies.?Wheezing?denies.?Cardiovascular:?Pacemaker?denies.?MVP?denies.?WPW?denies.?CHF?denies.?Heart attack?denies.?Septal defect?denies.?Rapid beat?denies.?Chest pain ?denies.?Atrial Fib.?denies.?Murmur/Palpitations?denies.?Gastrointestinal:?Hemorrhoids?denies.?Stomach/Abdominal pain?denies.?Dark blood stool?denies.?Irritable bowel ?denies.?Constipation?denies.?Diarrhea?denies.?Hematology:?Swelling?denies.?Clots?denies.?Varicose Veins?denies.?Bruising?denies.?Bleeding problem?denies.?Genitourinary:?Blood urine?denies.?Frequent/Painfu/urination/bladder control?denies.?Kidney stones?denies.?Infection (UTI)?denies.?Nephropathy?denies.?sex trans dis (STD)?denies.?Prostate?denies.?Musculoskeletal:?Hammertoes?denies.?Bunions?denies.?Back Pain?denies.?Muscle Cramps/ Resting?denies.?Muscle cramps / walking?denies.?Generalized aches and pains?denies.?Weakness?denies.?Integ.:?Larson?denies.?Scars?denies.?Corns/calluses?denies.?Ingrown nails?denies.?Painful nails?denies.?Open Sores?denies.?Rashes?denies.?Neurologic:?Difficulty sleeping?denies.?Brain disorder?denies.?Numbness?denies.?Balance trouble?denies.?Confusion?denies.?Fainting/blackouts?denies.?Tingling?denies.?Tr emors?denies.? * Medical History:? * Surgical History:?Breast Damon brinda right ten years ago * Hospitalization/Major Diagno stic Procedure:?Denies Past Hospitalization * Family History:?Mother: dece ased.?Father: .?Siblings: foot problems, diagnosed with Family history of arthritis, Unspecified essential hypertension, Diabetic - NIDDM.?Spouse: alive.? * Social History:?Tobacco Use:?Tobacco Use/Smoking?Are you a:?nonsmoker ?Additional Findings: Tobacco Non-User?Current non-smoker ?Tobacco use other than smoking?Are you an other tobacco user??No ???Drugs/Alcohol:?Drugs?Have you used drugs other than those for medical reasons in the past 12 months??No ?Alcohol Screen?Did you have a drink containing alcohol in the past year??No ?Points?0 ?Interpretation?Negative ???Miscellaneous:?Caffeine: yes, frequency: , 1-2 cups per day. ?no Children. ?Exercise: watch tv, listen to music, pray. ?Marital status: . ?Occupation: Retired. * Medications:?TakingMetoprolo l Succinate 100 MG Capsule ER 24 Hour Sprinkle 1 capsule Once a dayAspir-81 OLANZapine 5 MG Tablet 1 tablet Orally Once a dayclonazePAM 0.5 MG Tablet 1 tablet at bedtime Orally Once a dayDocusate Sodium 100 MG Capsule 1 capsule as needed Orally Once a dayLosartan Potassium 100 MG Tablet 1 tablet Orally Once a dayVitamin D Ciclopirox Olamine 0.77 % Cream 1 application to affected area Externally Twice a day to effected areas on feetTaking Metoprolol Succinate 100 MG Capsule ER 24 Hour Sprinkle 1 capsule Once a dayTaking Aspir-81 Taking OLANZapine 5 MG Tablet 1 tablet Orally Once a dayTaking clonazePAM 0.5 MG Tablet 1 tablet at bedtime Orally Once a dayTaking Docusate Sodium 100 MG Capsule 1 capsule as needed Orally Once a dayTaking Losartan Potassium 100 MG Tablet 1 tablet Orally Once a dayTaking Vitamin D Taking Ciclopirox Olamine 0.77 % Cream 1 application to affected area Externally Twice a day to effected areas on feetNot-Taking/PRNDoxycycline , Notes: 100mgCalcium 600-400 MG-UNIT Tablet Chewable 1 tablet with a meal Orally Once a dayMedication List reviewed and reconciled with the patientNot-Taking/PRN Doxycycline , Notes: 100mgNot-Taking/PRN Calcium 600-400 MG-UNIT Tablet Chewable 1 tablet with a meal Orally Once a dayMedication List reviewed and reconciled with the patient * Allergies:?N.K.D.A.yes[Aller gies Verified] Objective: * Vitals:?Ht: 5ft 3in, Wt:186, BMI:32.94, Shoe size:9. * Examination: ???Nails: ?NAILS are:?elongated,overgrown,dystrophic,greater than 3mm thick,discolored and friable with crumbly malodorous subungual debris, with pain on palpation, 1-5 B/L.?General Examination: ?GENERAL APPEARANCE:?pleasant, alert, well nourished, well developed, well hydrated, with good attention to hygene/body habitus, and in no acute distress.?ORIENTED:?person,place, and time.?Neurological: ?SENSORY:?neurological exam reveals intact sensorium, pain sensation normal, vibration sensation intact, pinprick sensation is normal in the lower extremities, anesthesia, burning, tingling, B/L.?Vascular: ?DP PULSES:? 0/4, B/L.?PT PULSES:? 0/4, B/L.?SKIN TEMPERTURE GRADIENT OF THE LOWER EXTERMITIES:? decreased, cool to cold, proximal to distal, B/L.?Dermatologic: ?SKIN FINDINGS:?Skin exam reveals Keratotic lesion(s) located at, Plantar, Heel(s), B/L .?Orthopedic: ?MUSCLE STRENGTH:?5/5 all groups in a symmetrical fashion , B/L.? 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 Plan: * Treatment: * Procedures:?Debride Nail 6-10:?Nail debridement?Nail debridement performed extensively to reduce/remove overall nail length and girth, subungual debris, and necrotic tissue, by manual and electrical means with use of a nail nipper and/or dremel, to more viable healthy nail plate or bed tissue 6-10. Silver nitrate used for any petechial bleeding as necessary. Patient chooses, no pharmaceutical tx (40583).?Keratoma Treatment:?Parring or Cutting of Benign Hyperkeratotic Lesion(s)?39975 (2-4 Lesions) - The Benign hyperkeratotic lesions, as described above were pared, and/or cut utilizing a sterile #15 blade, tissue nippers, and/or dremel, Q8.? * Procedure Codes:?46175 DEBRI DE NAIL, 6 OR MORE, Modifiers: XS 92936 TRIM SKIN LESIONS, 2 TO 4, Modifiers: Q8 * Follow Up:?4 Months * Images: * Sign off status: Completed true * Provider:?William Bowen DPM Date:? 024 Generated for Hyacinth stone/Jono/Rogelio on:?08/29/2024 03:53 PM EDT History and Physical [...]
--- OUTSIDE RECORDS SUMMARY | 2024-08-29 15:54 | XMS_ITS ---
Author Organization [facility] Address [address] [place] [address] Care Team Providers Care Pretzel Twisting Machine Operator Name Role Phone Vipul Shahid Primary Care Provider Arin Carver [phone] REASON FOR VISIT cx appt 05/11/24 Encounters Encounter Location Date Provider Diagnosis [address] [address] 05/08/2024 rAin Angel Plan Of Treatment No Information Progress Notes * Jennifer QUINTANADOB:[birth year] (73 yo F)Acc No.[id number]:05/08/2024 Patient:?Jennifer QUINTANA :1950???Age:73 Y???Sex:Female Address:[address] [place] [address], [place], [address] * true * Date:? Generated for Printi ng/Favictorinog/eTransmitting on:?08/29/2024 03:54 PM EDT
--- OUTSIDE RECORDS SUMMARY | 2024-08-29 15:54 | XMS_ITS | Patient Health Record ---
Demographics Address [address] [place] [address] [place] Preferred Language en Marital Status Unknown [employer] Affiliation Unknown Race Ethnic Group or Author Organization [facility] Address [address] [place] [address] Care Team Providers Care Panama Hat Blocker Name Role Phone Vipul Shahid MD Primary Care Provider Juan Clifford [phone] Allergies No Known Allergies Reason For Referral [...] Hydroxyurea 500 MG Oral for 90 Active Problems Problem Type SNOMED Code ICD Code Onset Dates Problem Status W/U Status Risk Notes Problem Screening for malignant neoplasm of colon (695822562) Encounter for screening for malignant neoplasm of colon (Z12.11) Active confirmed Problem Diverticular disease of colon (218226566) Diverticulosis of large intestine without perforation or abscess without bleeding (K57.30) Active confirmed Problem Long-term current use of aspirin (411642193095931 ) Aspirin long-term use (Z79.82) Active confirmed Vital Signs Blood pressure diastolic 00 mm Hg 12/20/2023 Height 63 in 12/20/2023 Blood pressure systolic 00 mm Hg 12/20/2023 Weight 191 lbs 12/20/2023 BMI 33.83 kg/m2 12/20/2023 Encounters Encounter Location Date Provider [place] [facility] [place] [address] [place] [id number] 04/02/2024 Juna Gloria Colon cancer screeni ng Z12.11 ; Diverticulosis of large intestine without perforation or abscess without bleeding K57.30 and Other hemorrhoids K64.8 [facility] [address] [place] [address] 12/20/2023 Juan Gloria Encounter for screen ing for malignant neoplasm of colon Z12.11 and Aspirin long-term use Z79.82 [facility] [address] [place] [phone] 12/20/2023 Juan Gloria Assessments Encounter Date Diagnosis (ICD Code) Assessment [...] to keep you advised of her progress. 04/02/2024 Other hemorrhoids (ICD-10 - K64.8) Plan Of Treatment Future Test Test Name Order Date COLONOSCOPY 09/06/2013 COLONOSCOPY 12/20/2023 Insurance Providers Payer Name Payer Address Payer Phone Subscriber Number Group Number Insured Name Patient Relationship to Insured Coverage Start Date Coverage End Date MEDICARE OF [place] [address] [place] [id number] JENNIFER QUINTANA Self - patient is the insured MEDICAID OF [facility] [address] [place] [address] [id number] JENNIFER QUINTANA Self - patient is the insured Medical (General) History Medical History History ICD Code Hypertension Denies ND,DM,CVA,Lung disease,renal dise ase Anxiety/Depression Asthma- Glaucoma- 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 Mancia Surgical History Surgery Date(Month/Year) lumpectomy, right breast--benign
[2024-08-29 15:57] VITALS: BP 156/74; PULSE 52; RESP 16; TEMP 36.5; O2SAT 96
[2024-08-29 16:38] LABS: C Reactive Protein 0.16 mg/dL (< or = 0.50)
[2024-08-29 17:13] LABS: Erythrocyte Sedimentation Rate 23 MM/HR (0-20)
--- NOTE | 2024-08-29 17:43 | PC.NURSE ---
Pt resting quietly in room; still awaiting provider for initial exam; charge poster made aware
--- NOTE | 2024-08-29 17:59 | ED_ITS ---
HPI - General Adult General Chief complaint: Eye Problems Stated complaint: ROBERTSON,DIZZY,EYE PAIN FOR DAYS PER EMS Time Seen by Provider: 08/29/24 16:09 History of Present Illness HPI narrative: Patient is a 73-year-old female presents today with having nonspecific generalized headache lightheaded. 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 Patient denies any focal weakness. Patient was looking in the furniture and then found everything was moving lasted for about 5 minutes now is gone patient denies any focal weakness denies any chest pain denies any bowel urinary incontinence denies any nausea vomiting denies any headache denies any changes in her vision currently denies any fever chills denies any coughing congestion upper respiratory symptoms. Has a history of hypertension was seen by her primary physician is currently on losartan and metoprolol both 100 mg. Related Data Home Medications ?Medication ?Instructions ?Recorded ?Confirmed ascorbate calcium (vitamin C) 500 500 mg PO DAILY 03/03/20 04/25/24 mg tablet clonazepam 1 mg tablet (Klonopin) 1 mg PO DAILY 03/03/20 04/25/24 latanoprost 0.005 % eye drops 1 drp ophthalmic (eye) DAILY 03/03/20 04/25/24 multivitamin 1 tab PO DAILY 03/03/20 04/25/24 olanzapine 10 mg tablet (Zyprexa) 5 mg PO DAILY 03/03/20 04/25/24 omega-3 fatty acids 1,000 mg 1,000 mg PO DAILY 03/03/20 04/25/24 capsule (Fish Oil Concentrate) timolol maleate 0.5 % eye drops 1 drp ophthalmic (eye) BID 02/04/22 04/25/24 (Timoptic) vit C 250 mg-vit E 90 mg-zinc 40 1 tab PO BID 11/02/22 04/25/24 mg-copper 1 [id number] capsule (PreserVision AREDS-2) Previous Rx's ?Medication ?Instructions ?Recorded lactulose 20 gram/30 mL oral 20 g (30 mL) PO DAILY #2,880 mL 09/08/22 solution albuterol sulfate 90 mcg/actuation 2 puff inhalation Q6H PRN 06/01/23 aerosol inhaler (Ventolin HFA) shortness of breath or wheezing #8.5 grams hydroxyurea 500 mg capsule 500 mg PO DAILY #90 caps 12/12/23 sennosides 8.6 mg-docusate sodium 2 tab-cap (2 x 8.6-50 mg) PO 02/20/24 50 mg capsule (Senna Plus) BEDTIME #60 caps hydrocortisone 2.5 % topical cream 1 appl NV BID-QID PRN hemorrhoids 03/14/24 with perineal applicator #30 grams (Proctosol HC) losartan 100 mg tablet 100 mg PO DAILY #90 tabs 06/19/24 metoprolol succinate 100 mg 100 mg PO DAILY 90 days #90 tabs 06/19/24 tablet,extended release 24 hr polyethylene glycol 3350 17 gram 17 g PO DAILY #30 ea 06/19/24 oral powder packet (Miralax) psyllium husk 0.4 gram capsule 0.4 g PO BEDTIME PRN constipation 06/19/24 #30 caps aspirin 81 mg chewable tablet 81 mg PO DAILY #90 tabs 08/20/24 Allergies Allergy/AdvReac Type Severity Reaction Status Date / Time fluoxetine [Prozac] Allergy Unknown Unknown Verified 08/29/24 12:37 hydralazine Allergy Unknown Unknown Verified 08/29/24 12:37 lisinopril Allergy Unknown Unknown Verified 08/29/24 12:37 lithium Allergy Unknown Unknown Verified 08/29/24 12:37 tizanidine Allergy Unknown Unknown Verified 08/29/24 12:37 hydrochlorothiazide AdvReac Intermediate hyponatremi Verified 08/29/24 12:37 a nifedipine AdvReac Intermediate Headache Verified 08/29/24 12:37 amlodipine AdvReac Unknown urinary Verified 08/29/24 12:37 retendtion Review of Systems 2 Review of Systems: No fever no chills no chest pain or diaphoresis Yes all other systems are reviewed and are negative [facility] Past Medical History Attestation statement: The following information was validated with the patient. Medical History Stye Finger pain, left Ringing in ears Epidermal inclusion cyst Abdominal wall abscess Abscess Age-related osteoporosis without current pathological fracture Hypercalcemia Breast cancer screening by mammogram Vaginal cyst Renal insufficiency Macular degeneration Diverticulitis Glaucoma Bipolar disorder Hypercholesterolemia Obesity (BMI 30-39.9) Hypertension Osteopenia Nontoxic multinodular goiter Asthma Onychomycosis Surgical History History of breast biopsy H/O elbow surgery Family History Family History Father CVD (cardiovascular disease) Myocardial infarction Mother No problems noted. Maternal Aunt Uterine cancer Family/Other Breast cancer Social History Social History Household Members: Children Housing: Apartment Are you a primary transitions rn care coordinator to a significant other at home: No Do you presently have visiting nurse or other home services: No Alcohol intake: never Patient Tobacco Use Status: Never used Tobacco Tobacco use type: Cigarette Smoked in Last 30 Days: No e-Cigarette/Vaping Use: Never Used Second Hand Smoke Exposure: No Use of substances other than those prescribed or required for medical reasons: No Advance Directives: No Advance Directives Information Provided: Yes service: No Current occupational status: retired Current occupational exposures/hazards: No Cognitive needs: No Hearing needs: No Vision needs: Yes Physical Exam ED Vital Signs: Vital Signs - 24 hr 08/29/24 12:34 08/29/24 15:57 Temperature 98.3 F 97.7 F Pulse Rate 62 52 Respiratory Rate 14 16 Blood Pressure 167/89 H 156/74 H Pulse Oximetry 97 96 Oxygen Delivery Method Room Air Room Air BMI result Body Mass Index 34.8 Appearance: Alert. Oriented X3. No acute distress. Eyes: Pupils equal, round and reactive to light. ENT: Pharynx normal. Neck: Normal inspection. Neck supple. No lymph nodes noted. No crepitus CVS: Normal heart rate and rhythm. Pulses normal. Normal S1 and S2 Respiratory: No respiratory distress. Breath sounds normal. No Wheezing. No rales Abdomen: Soft and nontender. No rigidity. No distention. good BS x4 Skin: Skin warm and dry. Normal skin color. Normal skin turgor. Extremities: No lower extremity edema. Neurovascular intact to all extremities. No Lacerations. No Rash Neuro: Oriented X 3. No motor deficit. No sensory deficit. Moving all extermities. No slurred speech Medical Decision Making Medical Decision Making MDM Narrative: My interpretation of her EKG showed a sinus rhythm heart rate is 60 NV QRS QTC normal no acute ST segment elevation not significantly changed from previous patient's troponin is negative C-reactive protein and sed rates are negative no evidence for temporal arteritis patient neurologically intact well-appearing. Blood pressure is about 160/90 here in the emergency department patient's hemoglobin is 13.8 his about baseline. No evidence for anemia. Kidney function is normal. Patient is urine showed no signs of infection. Neurologically intact. Will have patient follow-up outpatient. Differential Diagnosis Differential Diagnoses: The differential diagnosis associated with the presentation includes Temporal arteritis, intracranial bleed, electrolyte disturbance, infection, hypertension Admission/Observation Consideration of admission/observation: Escalation of care including admission/observation considered Lab Data MDM Lab Attestation statement: I reviewed the patient's lab results. 08/29/24 14:08 08/29/24 13:35 Labs: Lab Results 08/29/24 08/29/24 Range/Units 13:35 14:08 WBC 9.3 (4.8-10.8) X10*3/uL RBC 3.95 L (4.20-5.50) X10*6/uL Hgb 13.8 (12.0-16.0) g/dl Hct 40.4 (37.0-47.0) % MCV 102.3 H (80.0-98.0) fL MCH 34.9 H (27.0-33.0) pg MCHC 34.2 (31.0-35.0) g/dl RDW 14.9 (11.0-16.0) % Plt Count 447 H (160-400) X10*3/uL MPV 9.7 (9.4-12.3) fL Immature Gran % (Auto) 0.4 (0.0-0.4) % Neut % (Auto) 65.6 (45-73) % Lymph % (Auto) 25.0 (20-40) % [place] % (Auto) 7.6 (2-11) % Eos % (Auto) 1.0 (0-4) % Baso % (Auto) 0.4 (0-2) % Lymph # (Auto) 2.3 (1.2-4.9) X10*3/uL [place] # (Auto) 0.7 (0.1-1.2) X10*3/uL Eos # (Auto) 0.1 (0.0-0.4) X10*3/uL Baso # (Auto) 0.0 (0.0-0.2) X10*3/uL Abs Immat Gran (auto) 0.04 H (0.00-0.03) X10*3/uL Absolute Neuts (auto) 6.1 (2.0-8.3) x10*3/uL Absolute Nucleated RBC 0.000 (0.0-0.012) X10*3/uL Nucleated RBC % (auto) 0.0 (0.0-0.2) /100WBC ESR 23 H (0-20) MM/HR Sodium 138 (135-145) mmol/L Potassium 4.5 (3.3-5.1) mmol/L Chloride 109 H (96-108) mmol/L Carbon Dioxide 22 (22-29) mmol/L Anion Gap 12 (12-20) BUN 28 H (9-16) mg/dL Creatinine 0.90 (0.5-1.4) mg/dL Estim Creat Clear Calc 59.8 Estimated GFR > 60 Fasting Glucose 106 H (60-99) mg/dL Calcium 9.3 (8.4-10.2) mg/dL Troponin I High Sens < 2.7 (<3.5-17.0) ng/L C-Reactive Protein 0.16 (< or = 0.50) mg/dL Urine Color Yellow Urine Appearance Clear Urine pH 7.0 (5.0-9.0) Ur Specific [place] <= 1.005 (1.005-1.025) Urine Protein Negative (Neg-Trace) mg/dL Urine Glucose (UA) Negative (Negative) mg/dL Urine Ketones Negative (Negative) mg/dL Urine Blood Negative (Negative) Urine Nitrite Negative (Negative) Ur Leukocyte Esterase Negative (Negative) Urine RBC 0-2 (0-2) /HPF Urine WBC 0-5 (0-5) /HPF Ur Squamous Epith Cells 0-2 (0-2) /HPF Urine Bacteria None Seen (None Seen) Hyaline Casts 0-2 (0-2) /LPF Independent Historian Clinical information obtained from an independent historian. History obtained from or confirmed by: Spouse Chronic Conditions Patient?s care impacted by: Hypertension Discharge Plan Discharge Clinical Impression: Hypertension Patient Disposition: Home, Self-Care Instructions: Chronic Hypertension (ED) Prescriptions: No Action lactulose 20 gram/30 mL solution 20 g PO DAILY Qty: 2880 2RF hydroxyurea 500 mg Capsule 500 mg PO DAILY Qty: 90 3RF Senna Plus 8.6-50 mg capsule 2 tab-cap PO BEDTIME Qty: 60 1RF aspirin 81 mg Tablet,Chewable 81 mg PO DAILY Qty: 90 3RF ascorbate calcium (vitamin C) 500 mg tablet 500 mg PO DAILY multivitamin Tablet 1 tab PO DAILY omega-3 fatty acids [Fish Oil Concentrate] 1,000 mg capsule 1,000 mg PO DAILY latanoprost 0.005 % drops 1 drp ophthalmic (eye) DAILY clonazepam [Klonopin] 1 mg tablet 1 mg PO DAILY olanzapine [Zyprexa] 10 mg tablet 5 mg PO DAILY PreserVision AREDS-2 250-90-40-1 mg capsule 1 tab PO BID timolol maleate [Timoptic] 0.5 % drops 1 drp ophthalmic (eye) BID albuterol sulfate [Ventolin HFA] 90 mcg/actuation HFA aerosol inhaler 2 puff inhalation Q6H PRN (Reason: shortness of breath or wheezing) Qty: 8.5 0RF hydrocortisone [Proctosol HC] 2.5 % cream with perineal applicator 1 appl NV BID-QID PRN (Reason: hemorrhoids) Qty: 30 1RF polyethylene glycol 3350 [Miralax] 17 gram powder in packet 17 g PO DAILY Qty: 30 8RF psyllium husk 0.4 gram capsule 0.4 g PO BEDTIME PRN (Reason: constipation) Qty: 30 4RF metoprolol succinate 100 mg tablet extended release 24 hr 100 mg PO DAILY 90 Days Qty: 90 3RF losartan 100 mg tablet 100 mg PO DAILY Qty: 90 3RF Referrals: Po,Vipul Garzon MD [Primary Care Provider] - 08/30/24 Print Language: British
[2024-08-29 18:27] VITALS: BP 156/74; PULSE 52; RESP 16; TEMP 36.5; O2SAT 96
== END 2024-08-29 18:28 | disposition home or self-care (01) ==
PROVIDERS: Emergency Provider Emergency Medicine Emergency Medical Services; PCP Internal Medicine
DX: I10 Essential (primary) hypertension (principal); R42 Dizziness and giddiness; R51.9 Headache, unspecified; H54.7 Unspecified visual loss; Z79.899 Other long term (current) drug therapy
CPT/HCPCS: 36415; 80048; 81001; 84484; 85025; 85652; 86140; 93005; 99283; 99284

== ENCOUNTER → 2024-08-29 13:14 | Outpatient (BNV) | payer MEDICARE, MEDICAID, SELFPAY | PROVIDERS: Emergency Provider Emergency Medicine Emergency Medical Services; PCP Internal Medicine; Visit Provider Internal Medicine | DX: R00.1 Bradycardia, unspecified (principal) | CPT/HCPCS: 93010 ==

== ENCOUNTER 2024-09-19 12:40 | Outpatient (AMB) | payer MEDICARE, MEDICAID, SELFPAY ==
[2024-09-19 12:43] VITALS: BP 140/82; PULSE 61; O2SAT 98; BMI 35.1
--- NOTE | 2024-09-19 12:43 | MHC.PC.OV ---
Vital Signs 09/19/24 12:43 09/19/24 13:04 Height 5 ft 3 in Weight 198 lb BMI 35.1 BP 140/82 H 154/80 H Blood Pressure Location Lt brachial Lt brachial Position Sitting Sitting Pulse 61 Pulse Source Pulse Oximeter Pulse Oximetry (%) 98 Oxygen Delivery Method Room Air Intake Visit Reasons: constipation,HTN Allergies fluoxetine [Prozac] Allergy (Unknown, Verified 09/19/24 12:43) Unknown hydralazine Allergy (Unknown, Verified 09/19/24 12:43) Unknown lisinopril Allergy (Unknown, Verified 09/19/24 12:43) Unknown lithium Allergy (Unknown, Verified 09/19/24 12:43) Unknown tizanidine Allergy (Unknown, Verified 09/19/24 12:43) Unknown hydrochlorothiazide Adverse Reaction (Intermediate, Verified 09/19/24 12:43) hyponatremia nifedipine Adverse Reaction (Intermediate, Verified 09/19/24 12:43) Headache amlodipine Adverse Reaction (Unknown, Verified 09/19/24 12:43) urinary retendtion Tobacco use date assessed: 06/19/24 Fall risk assessment: No Falls in past year Last assessed Fall Risk: 09/19/24 Dental Screening Dental Screen Date: 06/19/24 HPI constipation,HTN HPI Details cough 15 days, no fevers, PFSH Medical History (Updated 09/19/24 @ 13:16 by Vipul Shahid MD) Finger pain, left Stye Ringing in ears Epidermal inclusion cyst Abdominal wall abscess Abscess Age-related osteoporosis without current pathological fracture Hypercalcemia Breast cancer screening by mammogram Vaginal cyst Renal insufficiency Macular degeneration Diverticulitis Glaucoma Bipolar disorder Hypercholesterolemia Obesity (BMI 30-39.9) Hypertension Osteopenia Nontoxic multinodular goiter Asthma Onychomycosis Surgical History History of breast biopsy H/O elbow surgery Family History Father CVD (cardiovascular disease) Myocardial infarction Mother No problems noted. Maternal Aunt Uterine cancer Family/Other Breast cancer Social History Household Members: Children Housing: Apartment Are you a primary rn transitional care to a significant other at home: No Do you presently have visiting nurse or other home services: No Alcohol intake: never Patient Tobacco Use Status: Never used Tobacco Tobacco use type: Cigarette e-Cigarette/Vaping Use: Never Used Second Hand Smoke Exposure: No service: No Current occupational status: retired Current occupational exposures/hazards: No Cognitive needs: No Hearing needs: No Vision needs: Yes Female Reproductive History Menstrual Age of Menarche: 13 Questionnaire PHQ-9 Over the last 2 weeks, how often have you been bothered by any of the following problems? 1. Little interest or pleasure in doing things: more than half the days 2. Feeling down, depressed, or hopeless: more than half the days 3. Trouble falling or staying asleep, or sleeping too much: not at all 4. Feeling tired or having little energy: more than half the days 5. Poor appetite or overeating: more than half the days 6. Feeling bad about yourself - or that you are a failure or have let yourself or your family down: not at all 7. Trouble concentrating on things, such as reading the newspaper or watching television: not at all 8. Moving or speaking so slowly that other people could have noticed. Or the opposite - being so fidgety or restless that you have been moving around a lot more than usual: not at all 9. Thoughts that you would be better off or of hurting yourself in some way: not at all Total score: 8 Source: Developed by Drs. Juan Tsang, Loretta Mead, Pérez Anderson and colleagues, with an educational mirtha from [employer]. Thrive Questionnaire Date Thrive assessed: 06/19/24 I am a: Patient What is your living situation today?: I have a steady place to live Within the past 12 months, did the food you bought not last and you didn't have the money to get more?: Never true Within the past 12 months, did you worry whether your food would run out before you got money to buy more?: Never true Do you have trouble paying for medicines?: No Do you have trouble getting transportation to medical appointments?: Yes Do you have trouble paying your heating and electricity bill?: No Do you have trouble taking care of your child, family member or friend?: No Do you have trouble with day-to-day activities such as bathing, preparing meals, shopping, managing finances, etc.?: No Are you currently unemployed and looking for a job?: Yes Are you interested in more education?: Yes Please select the resources that you would like help with: Education Currently or been in a relationship where the following occur: No concerns reported THRIVE Score: 1 AUDIT C Alcohol Use Questionnaire (AUDIT-C) 1. How often do you have a drink containing alcohol?: Never Total Score: 0 MAURI-7 AMB Questionnaire MAURI-7 Date MAURI - 7 assessed: 06/19/24 Feeling nervous, anxious, or on edge: 1 = Several days Not being able to stop or control worryin = Several days Worrying too much about different things: 1 = Several days Trouble relaxin = Several days Being so restless that it is hard to sit still: 1 = Several days Becoming easily annoyed or irritable: 0 = Not at all Feeling afraid as if something awful might happen: 0 = Not at all Total MAURI-7 score (0-4 normal; 5-9 mild; 10-14 moderate; 15-21 severe): 5 Source: Developed by Drs. Juan Tsang, Loretta Mead, Pérez Anderson and colleagues, with an educational mirtha from [employer]. Physical exam (Primary Care) Vital Signs: Last Vital Signs Pulse 61 09/19/24 12:43 BP 154/80 H 09/19/24 13:04 Pulse Ox 98 09/19/24 12:43 Oxygen Delivery Method Room Air 09/19/24 12:43 BMI result Body Mass Index 35.1 Tobacco/Smoking Status: Tobacco use Status Tobacco use date assessed 06/19/24 09/19/24 12:48 Patient Tobacco Use Status Never used Tobacco 09/19/24 12:48 Tobacco use type Cigarette 09/19/24 12:48 e-Cigarette/Vaping Use Never Used 09/19/24 12:48 PHQ-9: PHQ-9 Score PHQ-9: Total score 8 09/19/24 13:04 Thrive Assessment: Date of Thrive Assessment Date Thrive assessed 06/19/24 09/19/24 12:48 Currently or been in a relationship where the following occur: No concerns reported Const General: alert; No acute distress Eyes Conjunctivae: conjunctivae normal Resp Auscultation: clear to auscultation bilaterally Cardio Rate: regular rate Rhythm: regular rhythm GI Inspection: Yes normal to inspection Extrem General: Yes normal to inspection and No edema Coding Level of Care Code Est Pt Level 4 (19076) Complex EM visit Add On G2211 Diagnoses Impaired glucose tolerance R73.02 Obesity (BMI 30-39.9) E66.9 Essential hypertension I10 Hypertension type: essential hypertension Mild asthma without complication, unspecified whether persistent J45.909 Asthma complication type: uncomplicated Asthma persistence: unspecified Asthma severity: mild Hypercholesterolemia E78.00 Bipolar disorder, current episode mixed, mild F31.61 Active/Remission status: currently active Current bipolar episode type: mixed Current episode severity: mild Thrombocytosis D47.3 Hepatic steatosis K76.0 Cough R05.9 Finger pain, left M79.645 Assessment & Plan Assessment & Plan (1) Impaired glucose tolerance: Code(s): R73.02 - Impaired glucose tolerance (oral) Category: Medical Plan: Decrease the amount of carbohydrate intake, pasta, bread, rice and potatoes are all sugar and that is aside from all the sweet stuff, remember that fruits are good but they are Sweet also. (2) Obesity (BMI 30-39.9): Code(s): E66.9 - Obesity, unspecified Category: Medical Plan: Diet and exercise (3) Hypertension: Code(s): I10 - Essential (primary) hypertension Category: Medical Qualifiers: Hypertension type: essential hypertension Qualified Code(s): I10 - Essential (primary) hypertension Plan: Continue with blood pressure medication. Decrease salt intake and exercise patient is on losartan 100 mg once a day metoprolol 100 mg once a day (4) Asthma: Code(s): J45.909 - Unspecified asthma, uncomplicated Category: Medical Qualifiers: Asthma complication type: uncomplicated Asthma persistence: unspecified Asthma severity: mild Qualified Code(s): J45.909 - Unspecified asthma, uncomplicated Plan: On albuterol inhaler as needed (5) Hypercholesterolemia: Code(s): E78.00 - Pure hypercholesterolemia, unspecified Category: Medical Plan: Avoid fried foods, chicken skin, eggs, butter margarine, pastries and meat. Be it pork or beef they have a lot of cholesterol LDL goal of less than 130 and triglyceride of less than 150 patient is advised to get blood work done (6) Bipolar disorder: Comment: Social anxiety disorder [facility] every 2 weeks October 2019 Code(s): F31.9 - Bipolar disorder, unspecified Category: Medical Qualifiers: Active/Remission status: currently active Current bipolar episode type: mixed Current episode severity: mild Qualified Code(s): F31.61 - Bipolar disorder, current episode mixed, mild Plan: Continue with counseling and therapy (7) Thrombocytosis: Comment: Essential thrombocytosis Code(s): D47.3 - Essential (hemorrhagic) thrombocythemia Category: Medical Plan: Patient follows up with Hematology-Oncology. Stable (8) Hepatic steatosis: Code(s): K76.0 - Fatty (change of) liver, not elsewhere classified Category: Medical Plan: Low-fat diet and exercise (9) Cough: Code(s): R05.9 - Cough, unspecified Category: Medical (10) Finger pain, left: Code(s): M79.645 - Pain in left finger(s) Category: Medical Plan History of Present Illness The patient is a 74-year-old female presenting for a follow-up on essential hypertension management. Current readings indicate a blood pressure of 154/80 mmHg, necessitating modifications to her medication plan. She currently takes losartan and metoprolol, with side effects experienced from various other antihypertensives. Clonidine has been added to her regimen to better manage her blood pressure. The patient also reports a persistent cough, possibly related to allergies, and experiences knee and finger joint discomfort, with limited use of Tylenol due to liver concerns. She manages her weight through diet and exercise, though her balance is challenged by asthma, hyperlipidemia, bipolar disorder, and constipation. Regular consultations with hematology and oncology for essential thrombocythemia are ongoing. Health Maintenance - Recent colonoscopy conducted in March 2024. - Mammogram and bone density scans up to date as of November 2023. - Blood glucose noted at 106 mg/dL; requires monitoring. - Advised to maintain low-sodium and low-fat diet. - Encouraged regular physical activity alongside medication adjustments. - Use of a nasal spray for suspected allergic rhinitis. Social History - Reports high water intake, averaging eight to nine glasses daily. - Currently adheres to a low-fat diet and engages in physical exercise, although efforts are sporadic due to joint pain and previous periods of inactivity. - No pets reported at home reducing allergenic sources. - Details of functional activity include struggles with ongoing weight maintenance. Review of Systems - Cardiovascular: Reports dizziness, light-headedness. - Respiratory: Reports dry cough, primarily nocturnal and morning attacks. Denies productive phlegm or chest tightness. - Musculoskeletal: Reports knee pain, intermittent finger pain. - Neurological: Denies any coordination problems. - Gastrointestinal: Reports constipation. Physical Exam - Vitals- Blood pressure measured at 154/80 mmHg. - Cardiovascular- Pulse rate at 61 bpm. - Respiratory- Clear lung sounds upon auscultation. - ENT- No sign of erythema or exudate in oropharynx, clear nasal passages upon inspection, slight nasal congestion noted. Results - Labs: Mild thrombocytosis observed, with otherwise normal complete blood count; electrolytes normal; BUN elevated. - Blood Glucose: Mildly elevated at 106 mg/dL (non-fasting). Plan Today's visit focused on hypertension management with medication adjustments, specifically introducing clonidine alongside current antihypertensives. As part of an integrated plan, I recommended strategies targeting cardiovascular risk reduction, including dietary sodium limitations and regular physical exercise. For respiratory symptoms, I suggested the use of a nasal spray, recognizing possible allergy-induced congestion. We discussed pain management, suggesting topical treatment for joint discomfort and explored the local use of analgesics mindfully due to hepatic history. An x-ray was ordered for further examination of finger pain. Follow-up scheduled in three months to assess progress and reevaluate treatment efficacy. Patient was informed and verbally consented to the use of an ambient scribe for clinic note documentation during this visit. Discussion Notes We discussed the importance of controlling blood pressure beyond the current regime, introducing clonidine to the treatment plan while maintaining losartan and metoprolol. For her respiratory issues, I suspect allergic sources, prescribing a nasal spray. Considering potential allergies, the patient consented to management changes and agreed to observe triggers. For musculoskeletal discomfort, we discussed analgesia, agreeing on limited use of Tylenol and starting topical Voltaren gel for joint symptoms. I ordered imaging for her finger concerns. I advised re-checking in three months, or sooner if symptoms exacerbate. Patient Instructions - Continue taking losartan and metoprolol as prescribed. - Start clonidine 0.1 mg, twice daily. - Use nasal spray as directed to address congestion. - Apply Voltaren gel to finger for pain relief. - Limit sodium intake and engage in regular exercise. - Monitor blood pressure at home and report any spikes or symptoms. - Schedule blood work or X-ray follow-up as directed. - Report any significant changes or side effects of medication promptly. - Return for follow-up in three months or as necessary. Orders: Orders Comprehensive Met. Panel Today K76.0 - Fatty (change of) liver, not elsewhere classified Free T4 (Free Thyroxine) Today K76.0 - Fatty (change of) liver, not elsewhere classified Thyroid Stimulating Hormone Today K76.0 - Fatty (change of) liver, not elsewhere classified Vitamin B12 and Folate Today K76.0 - Fatty (change of) liver, not elsewhere classified Vitamin D 25-OH Total Today K76.0 - Fatty (change of) liver, not elsewhere classified Complete Blood Count Auto Diff Today K76.0 - Fatty (change of) liver, not elsewhere classified Hemoglobin A1c Today K76.0 - Fatty (change of) liver, not elsewhere classified Lipid Panel Today E78.00 - Pure hypercholesterolemia, unspecified, K76.0 - Fatty (change of) liver, not elsewhere classified XR finger LT min 2V Today M79.645 - Pain in left finger(s) Medications: New fluticasone propionate 50 mcg/actuation (Flonase Allergy Relief) administer into each nostril 2 sprays intranasal DAILY 16 grams 3RF R05.9 - Cough, unspecified clonidine HCl 0.1 mg PO BID 60 tabs 4RF I10 - Essential (primary) hypertension
--- OUTSIDE RECORDS SUMMARY | 2024-09-19 13:00 | XMS_ITS ---
Demographics Address [address] [place] [address] Mobile Preferred Language en Marital Status Unknown Islam Affiliation Unknown Race Ethnic Group or Author Organization [facility] Address [address] [place] [address] Care Team Providers Care Pressure Controller Name Role Phone Vipul Shahid MD Primary Care Provider Juan Clifford [phone] Allergies No Known Allergies REASON FOR VISIT [...] Problem Screening for malignant neoplasm of colon ([id number]) Encounter for screening for malignant neoplasm of colon (Z12.11) Active confirmed Problem Long-term current use of aspirin ([id number] 03) Aspirin long-term use (Z79.82) Active confirmed Vital Signs Blood pressure systolic 00 mm Hg 12/20/19 24 Blood pressure diastolic 00 mm Hg 024 Height 63 in 12/20/2023 Weight 191 lbs 12/20/2023 BMI 33.83 kg/m2 12/20/2023 Encounters Encounter Location Date Provider Diagnosis [facility] [address] [place] [address] 12/20/2023 Juan Gloria Encounter for screening for [...] Notes * JENNIFER QUINTANA:[birth year] (73 yo F)Acc No.[id number]:12/20/2023 Progress Notes Patient:?LILIANJENNIFER Provider:?Juan Gloria MD :1950???Age:73 Y???Sex:Female D ate:12/20/2023 Address:[address] [place] [address] [facility] [address], [place], [place] Pcp:Vipul Shahid MD Subjective: * Chief Complaints: [...] Procedure Codes:?3017F COLOR ECTAL CA SCREEN DOC [id number] TOBACCO NON-[id number] BP SCR NOT PRFRM REC REASON NOS * Preventive Medicine:? ??Urinary Incontinence:?Urinary Incontinence?Assessment:?Absent,?Plan of care documented:?No, reason not specified.? ??Screenings:?Fall Risk Screening?Fall Risk Assessment:?No falls in the past year.? * Follow Up:?prn * * Sign off status: Completed true * Provider:?Juan Gloria MD Date:? 024 Generated for Printi bertha/Jono/eTransmitting on:?09/19/2024 01:00 PM EDT History and Physical Notes * [...]
--- OUTSIDE RECORDS SUMMARY | 2024-09-19 13:00 | XMS_ITS ---
Demographics Address [address] [place] [address] Mobile Preferred Language en Marital Status Unknown Jewish Affiliation Unknown Race Ethnic Group or Author Organization [facility] Address [address] [place] [address] Care Team Providers Care Accredited Legal Secretary Name Role Phone Vipul Shahid MD Primary Care Provider Juan Clifford [phone] REASON FOR VISIT bowel prep Medications Medication [...] Active Encounters Encounter Location Date Provider [facility] [address] [facility] [address] [place] [address] 12/20/2023 Juan Gloria Plan Of Treatment Medication [...] Notes * AGUSTIN QUINTANA:[birth year] (73 yo F)Acc No.[id number]:12/20/2023 Patient:?AGUSTIN QUINTANA :1950???Age:73 Y???Sex:Female Address:[address] [place] [address], [address] * Refills? Start Dulcolax (colon prep) Tablet [...] true * Date:? Generated for Hyacinth stone/Jono/Richieitting on:?09/19/2024 01:00 PM EDT
--- OUTSIDE RECORDS SUMMARY | 2024-09-19 13:00 | XMS_ITS | Patient Health Record ---
Author Organization [facility] Jerri yamilka Gentile Address [address] [place] [address] Care Team Providers Care Security Assurance Analyst Name Role Phone Vipul Shahid Primary Care Provider Arin Carver Unavailable [phone] William Bowen Unavailable [phone] Allergies No Known Allergies Reason For Referral [...] Problem Status W/U Status Risk Notes Problem Unspecified atherosclerosis of [place] arteries of extremities, bilateral legs (I70.203) Active confirmed Vital Signs Height 5ft 3in in 01/06/2024 Weight 186 lbs 01/06/2024 BMI 32.94 kg/m2 01/06/2024 Encounters Encounter Location Date [facility] [address] [place] [address] 01/06/2024 William Bowen Tinea unguium B35.1 ; Pain in right toe(s) M79.674 ; Pain in left toe(s) M79.675 ; Skin disease L98.9 ; Unspecified atherosclerosis of [place] arteries of extremities, bilateral legs I70.203 ; Xerosis cutis L85.3 and Tinea pedis B35.3 [facility] [address] [place] [address] 05/08/2024 Arin Angel Assessments Encounter Date Diagnosis (ICD Code) Assessment Notes Treatment Notes Treatment Clinical Notes Section Notes 01/06/2024 Tinea unguium (ICD-10 - B35.1) 01/06/2024 Pain in right toe(s) (ICD-10 - M79.674) 01/06/2024 Pain in left toe(s) (ICD-10 - M79.675) 01/06/2024 Skin disease (ICD-10 - L98.9) 01/06/2024 Unspecified atherosclerosis of [place] arteries of extremities, bilateral legs (ICD-10 - I70.203) 01/06/2024 Xerosis cutis (ICD-10 - L85.3) 01/06/2024 Tinea pedis (ICD-10 - B35.3) Plan Of Treatment Pending Test Test Name Order Date [id number] SKIN LESIONS, OVER 4 02/10/20 22 [id number] SKIN LESIONS, 2 TO 4 08/11/19 23 [id number] SKIN LESIONS, 2 TO 4 04/22/20 20 [id number] SKIN LESIONS, 2 TO 4 08/27/19 21 [id number]-[id number] SKIN LESIONS, 2 TO 4 11/26/19 21 [id number]-NFLX SKIN LESIONS, 2 TO 4 02/28/20 21 17927-BBXKMUID OF HEMATOMA/FLUID 023 Insurance Providers Payer Name Payer Address Payer Phone Subscriber Number Group Number Insured Name Patient Relationship to Insured Coverage Start Date Coverage End Date Medicare [employer] [address] [place] [address] [id number] Jennifer Avelar Self - patient is the insured Medical (General) History Medical History History ICD Code Anxiety CAD (Cholesterol) Cataracts Depression Diverticulosis Glaucoma High blood pressure Macular degeneration Chicken pox Surgical History Surgery Date(Month/Year) Breast Surgery right ten years ago
--- OUTSIDE RECORDS SUMMARY | 2024-09-19 13:00 | XMS_ITS ---
Demographics Address [address] [place] [address] Mobile Preferred Language en Marital Status Unknown Cheondoism Affiliation Unknown Race Ethnic Group or Author Organization [facility] Address [address] [place] [address] Care Team Providers Care Director Risk Name Role Phone Vipul Shahid MD Primary Care Provider Juan Clifford [phone] REASON FOR VISIT screening Problems Problem Type SNOMED Code ICD Code Onset Dates Problem Status W/U Status Risk Notes Problem Diverticulosis o f large intestine without perforation or abscess without bleeding (K57.30) Active confirmed Encounters Encounter Location Date Provider Diagnosis [facility] Outpatient [address] [place], [place] [id number] 04/02/2024 Juan Gloria Colon cancer scree stephanie [...] Notes * AGUSTIN QUINTANA:[birth year] (74 yo F)Acc No.[id number]:04/02/2024 COLON WITH MAC Patient:?AGUSTIN QUINTANA Provider:?Juan Gloria MD :1950???Age:73 Y???Sex:Female D ate:04/02/2024 Address:[address], [id number] Pcp:Vipul Shahid MD Subjective: * Chief Complaints: [...] MD Date:? 024 Generated for Hyacinth stone/Jono/eTransmitting on:?09/19/2024 01:00 PM EDT
--- OUTSIDE RECORDS SUMMARY | 2024-09-19 13:01 | XMS_ITS | Patient Health Record ---
Demographics Address [address] [place] [address] Mobile Preferred Language en Marital Status Unknown Jewish Affiliation Unknown Race Ethnic Group or Author Organization [facility] Address [address] [place] [address] Care Team Providers Care Professor Of Biological Sciences Name Role Phone Vipul Shahid MD Primary Care Provider Juan Clifford [phone] Allergies No Known Allergies Reason For Referral [...] Problem Screening for malignant neoplasm of colon (529358466) Encounter for screening for malignant neoplasm of colon (Z12.11) Active confirmed Problem Diverticulosis o f large intestine without perforation or abscess without bleeding (K57.30) Active confirmed Problem Long-term current use of aspirin ([id number]) Aspirin long-term use (Z79.82) Active confirmed Vital Signs Blood pressure diastolic 00 mm Hg 12/20/2023 Height 63 in 12/20/2023 Blood pressure systolic 00 mm Hg 12/20/2023 Weight 191 lbs 12/20/2023 BMI 33.83 kg/m2 12/20/2023 Encounters Encounter Location Date Provider Diagnosis [facility] Outpatient [address] [place], [place] [id number] 04/02/2024 Juan Juani Colon cancer screeni ng Z12.11 ; Diverticulosis of large intestine without perforation or abscess without bleeding K57.30 and Other hemorrhoids K64.8 [facility] [address] [place] [address] 12/20/2023 Juan Gloria Encounter for screen ing for malignant neoplasm of colon Z12.11 and Aspirin long-term use Z79.82 [facility] [address] [place] [phone] 12/20/2023 Juan Gloria Assessments Encounter Date Diagnosis [...] Date MEDICARE OF [place] [address] [place] [address] [id number] JENNIFER QUINTANA Self - patient is the insured MEDICAID OF [facility] [address] [place] [address] [id number] JENNIFER QUINTANA Self - patient is the insured Medical (General) History Medical History History ICD Code Hypertension Denies VA,DM,CVA,Lung disease,renal dise ase Anxiety/Depression Asthma- Glaucoma- 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 Mancia Surgical History Surgery Date(Month/Year) lumpectomy, right breast--benign
--- OUTSIDE RECORDS SUMMARY | 2024-09-19 13:01 | XMS_ITS ---
Author Organization [facility] yamilka [place] Address [address] [place] [address] Care Team Providers Care Chips Screen Tender Name Role Phone Vipul Shahid Primary Care Provider Arin Carver Unavailable [phone] William Bowen Unavailable [phone] Allergies No Known Allergies REASON FOR VISIT [...] 01/06/2024 Encounters Encounter Location Date Provider Diagnosis [facility] [address] [address] 01/06/2024 William Bowen Tinea unguium B35.1 ; Pain in right toe(s) M79.674 ; Pain in left toe(s) M79.675 ; Skin disease L98.9 ; Unspecified atherosclerosis of [place] arteries of extremities, bilateral legs I70.203 ; Xerosis cutis L85.3 and Tinea pedis B35.3 Assessments Encounter Date Diagnosis (ICD Code) Assessment Notes Treatment Notes Treatment Clinical Notes Section Notes 01/06/2024 Tinea unguium (ICD-10 - B35.1) 01/06/2024 Pain in right toe(s) (ICD-10 - M79.674) 01/06/2024 Pain in left toe(s) (ICD-10 - M79.675) 01/06/2024 Skin disease (ICD-10 - L98.9) 01/06/2024 Unspecified atherosclerosis of [place] arteries of extremities, bilateral legs (ICD-10 - [...] as necessary. Patient chooses, no pharmaceutical tx (97213) Keratoma Treatment Parring or Cutting o f Benign Hyperkeratotic Lesion(s) 06597 (2-4 Lesions) - The Benign hyperkeratotic lesions, as described above were pared, and/or cut utilizing a sterile #15 blade, tissue nippers, and/or dremel, Q8 Progress Notes * Jennifer QUINTANADOB:[birth year] (73 yo F)Acc No.[id number]:01/06/2024 Progress Note Patient:Jennifer Sanchez Provider:?William Bowen DPM :1950???Age:73 Y???Sex:Female D ate:01/06/2024 Address:[address] [place] [address], [id number] Pcp:Vipul Shahid Subjective: * Chief Complaints: * [...] - M79.675?4.?Skin disease - L98.9?5.?Unspecified atherosclerosis of [place] arteries of extremities, bilateral legs - I70.203?6.?Xerosis [...] as necessary. Patient chooses, no pharmaceutical tx (07939).?Keratoma Treatment:?Parring or Cutting of Benign Hyperkeratotic Lesion(s)?04882 (2-4 Lesions) - The Benign hyperkeratotic lesions, as described above were pared, and/or cut utilizing a sterile #15 blade, tissue nippers, and/or dremel, Q8.? * Procedure Codes:?41583 DEBRI DE NAIL, 6 OR MORE, Modifiers: XS 24582 TRIM SKIN LESIONS, 2 TO 4, Modifiers: Q8 * Follow Up:?4 Months * Images: * Sign off status: Completed true * Provider:?William Bowen DPM Date:? 024 Generated for Hyacinth stone/Jono/Rogelio on:?09/19/2024 01:00 PM EDT History and Physical [...]
--- OUTSIDE RECORDS SUMMARY | 2024-09-19 13:01 | XMS_ITS ---
Author Organization [facility] Address [address] [place] [address] Care Team Providers Care Surgical Garment Inspector Name Role Phone Vipul Shahid Primary Care Provider Arin Carver [phone] REASON FOR VISIT cx appt 05/11/24 Encounters Encounter Location Date Provider Diagnosis [address] [address] 05/08/2024 Arin Angel Plan Of Treatment No Information Progress Notes * Jennifer QUINTANADOB:[birth year] (73 yo F)Acc No.[id number]:05/08/2024 Patient:?Jennifer QUINTANA :1950???Age:73 Y???Sex:Female Address:[address] [place] [address], [place], [address] * true * Date:? Generated for Printi ng/Favictorinog/eTransmitting on:?09/19/2024 01:00 PM EDT
--- OUTSIDE RECORDS SUMMARY | 2024-09-19 13:01 | XMS_ITS ---
Author Organization [facility] Address [address] [place] [address] Care Team Providers Care Lock Assembler Name Role Phone Vipul Shahid Primary Care Provider Arin Carver [phone] REASON FOR VISIT Transfer to Different Provider Encounters Encounter Location Date Provider Diagnosis [facility] [address] [place] [address] 05/11/2024 Arin Angel Plan Of Treatment No Information Progress Notes * Jennifer QUINTANADOB:[birth year] (74 yo F)Acc No.[id number]:05/11/2024 Progress Note Patient:?LILIAN Jennifer Provider:?Arin Angel DPM :1950???Age:73 Y???Sex:Female D ate:05/11/2024 Address:[address] [place] [address] Pcp:Vipul Shahid Subjective: * Chief Complaints: * [...] Provider:?Arin Angel DPM Date:?0 05/11/2024 Generated for Alejoi ng/Favictorinog/eTransmitting on:?09/19/2024 01:00 PM EDT
[2024-09-19 13:04] VITALS: BP 154/80
== END 2024-09-19 13:19 | disposition home or self-care (01) ==
LOC: HO.HMCH 12:40
PROVIDERS: PCP Internal Medicine; Visit Provider Internal Medicine
DX: D47.3 Essential (hemorrhagic) thrombocythemia (principal); F31.61 Bipolar disorder, current episode mixed, mild; E66.9 Obesity, unspecified; Z68.35 Body mass index [BMI] 35.0-35.9, adult; R73.02 Impaired glucose tolerance (oral); I10 Essential (primary) hypertension; J45.909 Unspecified asthma, uncomplicated; E78.00 Pure hypercholesterolemia, unspecified; K76.0 Fatty (change of) liver, not elsewhere classified; R05.9 Cough, unspecified; M79.645 Pain in left finger(s)

== ENCOUNTER → 2024-09-19 12:40 | Outpatient (BNVA) | payer MEDICARE, MEDICAID, SELFPAY | PROVIDERS: PCP Internal Medicine; Visit Provider Internal Medicine | DX: R73.02 Impaired glucose tolerance (oral) (principal); E66.9 Obesity, unspecified; Z68.35 Body mass index [BMI] 35.0-35.9, adult; I10 Essential (primary) hypertension; J45.909 Unspecified asthma, uncomplicated; E78.00 Pure hypercholesterolemia, unspecified; F31.61 Bipolar disorder, current episode mixed, mild; D47.3 Essential (hemorrhagic) thrombocythemia; K76.0 Fatty (change of) liver, not elsewhere classified; R05.9 Cough, unspecified; M79.645 Pain in left finger(s); Z71.3 Dietary counseling and surveillance | CPT/HCPCS: 99212 ==

== ENCOUNTER 2024-10-15 13:05 | Outpatient (REF) | payer MEDICARE, MEDICAID, SELFPAY ==
--- OUTSIDE RECORDS SUMMARY | 2024-10-15 14:48 | XMS_ITS | Patient Health Record ---
Author Organization [facility] Jerri yamilka [place]ile Address [address] [place] [address] Care Team Providers Care Insurance Salesman Name Role Phone Vipul Shahid Primary Care Provider Arin Carver Unavailable [phone] William Bowen Unavailable [phone] Allergies No Known Allergies Reason For Referral [...] atherosclerosis of arteries of lower limbs (disorder) ([id number] ) Unspecified atherosclerosis of [place] arteries of extremities, bilateral legs (I70.203) Active confirmed Vital Signs Height 5ft 3in in 01/06/2024 Weight 186 lbs 01/06/2024 BMI 32.94 kg/m2 01/06/2024 Encounters Encounter Location Date Provider [facility] [address] [address] 01/06/2024 William Bowen Tinea unguium B35.1 ; Pain in right toe(s) M79.674 ; Pain in left toe(s) M79.675 ; Skin disease L98.9 ; Unspecified atherosclerosis of [place] arteries of extremities, bilateral legs I70.203 ; Xerosis cutis L85.3 and Tinea pedis B35.3 [facility] [address] [place] [address] 05/08/2024 Arin Angel Assessments Encounter Date Diagnosis (ICD Code) Assessment Notes Treatment Notes Treatment Clinical Notes Section Notes 01/06/2024 Tinea unguium (ICD-10 - B35.1) 01/06/2024 Pain in right toe(s) (ICD-10 - M79.674) 01/06/2024 Pain in left toe(s) (ICD-10 - M79.675) 01/06/2024 Skin disease (ICD-10 - L98.9) 01/06/2024 Unspecified atherosclerosis of [place] arteries of extremities, bilateral legs (ICD-10 - I70.203) 01/06/2024 Xerosis cutis (ICD-10 - L85.3) 01/06/2024 Tinea pedis (ICD-10 - B35.3) Plan Of Treatment Pending Test Test Name Order Date 09298-RIYF SKIN LESIONS, OVER 4 02/10/20 22 49597-ISIU SKIN LESIONS, 2 TO 4 08/11/19 23 76549-HOII SKIN LESIONS, 2 TO 4 04/22/20 20 05962-PZAK SKIN LESIONS, 2 TO 4 08/27/19 21 04731-AIXN SKIN LESIONS, 2 TO 4 11/26/19 21 65682-CSTV SKIN LESIONS, 2 TO 4 02/28/20 21 77894-LCSDBXCT OF HEMATOMA/FLUID 023 Insurance Providers Payer Name Payer Address Payer Phone Subscriber Number Group Number Insured Name Patient Relationship to Insured Coverage Start Date Coverage End Date [employer] [address] [place] [address] [id number] Jennifer Avelar Self - patient is the insured Medical (General) History Medical History History ICD Code Anxiety CAD (Cholesterol) Cataracts Depression Diverticulosis Glaucoma High blood pressure Macular degeneration Chicken pox Surgical History Surgery Date(Month/Year) Breast Surgery right ten years ago
== END 2024-10-15 13:06 | disposition home or self-care (01) ==
LOC: HO.MAMMO 13:05
PROVIDERS: PCP Internal Medicine; Visit Provider Internal Medicine
DX: Z12.31 Encounter for screening mammogram for malignant neoplasm of breast (principal)
CPT/HCPCS: 77063; 77067

== ENCOUNTER → 2024-10-15 13:30 | Outpatient (BNV) | payer MEDICARE, MEDICAID, SELFPAY | PROVIDERS: PCP Internal Medicine; Visit Provider Internal Medicine | DX: Z12.31 Encounter for screening mammogram for malignant neoplasm of breast (principal) | CPT/HCPCS: 77063; 77067 ==

== ENCOUNTER 2024-11-27 15:27 | Outpatient (AMB) | payer MEDICARE, MEDICAID, SELFPAY ==
--- OUTSIDE RECORDS SUMMARY | 2024-04-02 06:40 | XMS_ITS ---
Demographics Address [address] [place] [address] Mobile Preferred Language en Marital Status Unknown Yarsani Affiliation Unknown Race Ethnic Group or Author Organization [facility] Address [address] [place] [address] Care Team Providers Care Key Account Representative Name Role Phone Vipul Shahid MD Primary Care Provider Juan Clifford [phone] REASON FOR VISIT screening Problems Problem Type SNOMED Code ICD Code Onset Dates Problem Status W/U Status Risk Notes Problem Diverticulosis o f large intestine without perforation or abscess without bleeding (K57.30) Active confirmed Encounters Encounter Location Date Provider Diagnosis [facility] [place] [address] [place], [place] [phone] 04/02/2024 Juan Gloria Colon cancer scree stephanie [...] Notes * AGUSTIN QUINTANA:[birth year] (74 yo F)Acc No.[id number]:04/02/2024 COLON WITH MAC Patient: Landry RODRIGUEZAGUSTIN Beck Provider: Damián Gloria MD :1950 A ge:73 Y S ex:Female Date:04/02/2024 Address:[address], [place], [place] Pcp:Vipul Shahid MD Subjective: * Chief Complaints: [...] 06/02/2023 Generated for Hyacinth stone/Jono/Richieitting on: 0 11/27/2024 04:20 PM EDT
--- NOTE | 2024-11-27 15:35 | AM.OFFVISMDC ---
Intake Vital Signs 11/27/24 16:20 Height 5 ft 3 in Weight 195 lb BMI 34.5 BP 124/72 Blood Pressure Location Lt brachial Position Sitting Pulse 88 Pulse Oximetry (%) 97 Oxygen Delivery Method Room Air Intake Visit Reasons: AWV Orthotics Prosthetics Technician Required: Yes Orthotics Prosthetics Technician Language: Hebrew Accompanied by: Spouse Allergies fluoxetine (Prozac) Allergy (Unknown, Verified 11/27/24 16:30) Unknown hydralazine Allergy (Unknown, Verified 11/27/24 16:30) Unknown lisinopril Allergy (Unknown, Verified 11/27/24 16:30) Unknown lithium Allergy (Unknown, Verified 11/27/24 16:30) Unknown tizanidine Allergy (Unknown, Verified 11/27/24 16:30) Unknown clonidine Adverse Reaction (Intermediate, Verified 11/27/24 16:30) dry mouth hydrochlorothiazide Adverse Reaction (Intermediate, Verified 11/27/24 16:30) hyponatremia nifedipine Adverse Reaction (Intermediate, Verified 11/27/24 16:30) Headache amlodipine Adverse Reaction (Unknown, Verified 11/27/24 16:30) urinary retendtion Medication List - Last Reconciled 11/27/24 by Vipul Shahid MD albuterol sulfate 90 mcg/actuation (Ventolin HFA) 2 puffs inhalation Q6H PRN ascorbate calcium (vitamin C) 500 mg PO DAILY aspirin 81 mg PO DAILY chlorthalidone 25 mg PO DAILY clonazepam (Klonopin) 1 mg PO DAILY fluticasone propionate 50 mcg/actuation (Flonase Allergy Relief) 2 sprays intranasal DAILY hydrocortisone 2.5% (Proctosol HC) 1 appl AR BID-QID PRN hydroxyurea 500 mg PO DAILY latanoprost 0.005% 1 drp ophthalmic (eye) DAILY losartan 100 mg PO DAILY metoprolol succinate ER 100 mg PO DAILY 90 days multivitamin 1 tab PO DAILY olanzapine (Zyprexa) 5 mg PO DAILY omega-3 fatty acids (Fish Oil Concentrate) 1,000 mg PO DAILY polyethylene glycol 3350 (Miralax) 17 grams PO DAILY sennosides-docusate sodium 8.6-50 mg (Senna Plus) 2 tab-caps (2 x 8.6-50 mg) PO BEDTIME timolol maleate 0.5% (Timoptic) 1 drp ophthalmic (eye) BID vit C,M-So-ynqob-lutein-zeaxan 250-90-40-1 mg (PreserVision AREDS-2) 1 tab PO BID HPI AWV HPI Details [facility] Hematology-Oncology Dr. Mancia gastroenterology [facility] Gastroenterology surgery Dr. Dove gynecology Dr. Mackey Podiatry Dr. Bowen, feels hot on the sole 1 months when doing bowel movement [facility] Medical History (Updated 11/27/24 @ 17:15 by Vipul Shahid MD) Onychomycosis Finger pain, left Stye Ringing in ears Epidermal inclusion cyst Abdominal wall abscess Abscess Age-related osteoporosis without current pathological fracture Hypercalcemia Breast cancer screening by mammogram Vaginal cyst Renal insufficiency Macular degeneration Diverticulitis Glaucoma Bipolar disorder Hypercholesterolemia Obesity (BMI 30-39.9) Hypertension Osteopenia Nontoxic multinodular goiter Asthma Surgical History History of breast biopsy H/O elbow surgery Family History Father CVD (cardiovascular disease) Myocardial infarction Mother No problems noted. Maternal Aunt Uterine cancer Family/Other Breast cancer Social History Household Members: Children Housing: Apartment Are you a primary life care planner to a significant other at home: No Do you presently have visiting nurse or other home services: No Alcohol intake: never Patient Tobacco Use Status: Never used Tobacco Tobacco use type: Cigarette e-Cigarette/Vaping Use: Never Used Second Hand Smoke Exposure: No service: No Current occupational status: retired Current occupational exposures/hazards: No Cognitive needs: No Hearing needs: No Vision needs: Yes Female Reproductive History Menstrual Age of Menarche: 13 Questionnaire Medicare Wellness Checkup [age] What gender do you identify with?: female During the past 4 weeks, how much have you been bothered by emotional problems such as feeling anxious, depressed, irritable, sad or downhearted, and blue?: moderately During the past 4 weeks, has your physical & emotional health limited your social activities with family, friends, neighbors, or groups?: slightly During the past 4 weeks, how much bodily pain have you generally had?: moderate pain During the past 4 weeks, was someone available to help you if you needed & wanted help?: yes, as much as I wanted During the past 4 weeks, what was the hardest physical activity you could do for at least 2 minutes?: light Can you get to places out of walking distance without help? (For eg., can you travel alone on buses, taxis or drive your car?): Yes Can you go shopping for groceries or clothes without someone's help?: No Can you prepare your own meals?: No Can you do your housework without help?: No Because of any health problems, do you need the help of another person with your personal care needs such as eating, bathing, dressing or getting around the house?: No Can you handle your own money without help?: Yes During the past 4 weeks, how would you rate your health in general?: fair During the past 4 weeks how have things been going for you?: good & bad parts about equal Are you having difficulties driving your car?: no Do you always fasten your seat belt when you are in a car?: yes, usually During past 4 weeks, have you been bothered by the following: often: Teeth or denture problems? Have you fallen 2 or more times in the past year?: No Are you afraid of falling?: Yes Are you a smoker?: no During the past 4 weeks, how many drinks of wine, beer, or other alcoholic beverages did you have?: no alcohol at all Do you exercise for about 20 minutes 3 or more times a week?: yes, most of the time Have you been given information to help with the following?: no: Hazards in your house that might hurt you? and no: Keeping track of your medications? How often do you have trouble taking medicines the way you have been told to take them?: I always take medicine as prescribed How confident are you that you can control & manage most of your health problems?: somewhat confident What is your race?: or origin or descent PHQ-9 Over the last 2 weeks, how often have you been bothered by any of the following problems? 1. Little interest or pleasure in doing things: nearly every day 2. Feeling down, depressed, or hopeless: several days 3. Trouble falling or staying asleep, or sleeping too much: nearly every day 4. Feeling tired or having little energy: nearly every day 5. Poor appetite or overeating: nearly every day 6. Feeling bad about yourself - or that you are a failure or have let yourself or your family down: more than half the days 7. Trouble concentrating on things, such as reading the newspaper or watching television: nearly every day 8. Moving or speaking so slowly that other people could have noticed. Or the opposite - being so fidgety or restless that you have been moving around a lot more than usual: nearly every day 9. Thoughts that you would be better off or of hurting yourself in some way: not at all Total score: 21 31484 - PHQ-9 Billing: Yes Source: Developed by Drs. Juan Tsang, Loretta Mead, Pérez Anderson and colleagues, with an educational mirtha from [email or web address]. Review of Systems Const Denies poor appetite and Denies weakness Eyes Denies no additional complaints ENT Reports Normal hearing present, Denies dizziness, Denies nasal congestion, Denies tinnitus and Denies sore throat Card Denies chest pain, Denies syncope, Denies rapid heart rate and Denies dyspnea Resp Denies cough and Denies dyspnea GI Denies change in stool character, Reports constipation, Denies diarrhea, Denies nausea and Denies vomiting Denies urinary frequency, Denies difficulty voiding and Denies dysuria Neuro Reports Normal hearing present, Denies confusion, Denies dizziness, Denies syncope and Denies weakness Psych Denies confusion Physical Exam Vital Signs: Last Vital Signs Pulse 88 11/27/24 16:20 BP 124/72 11/27/24 16:20 Pulse Ox 97 11/27/24 16:20 Oxygen Delivery Method Room Air 11/27/24 16:20 BMI result Body Mass Index 34.5 Const General: alert and awake; No confusion Orientation/consciousness: No confusion HEENT Head: Yes normocephalic Ears: external ears normal and TM's normal bilaterally Face and sinus: Yes normal facial exam Mouth: moist mucous membranes Throat: Yes tonsils normal Eyes Conjunctivae: conjunctivae normal Pupils: Equal, round and reactive pupils present and Pupil accommodation reflex normal Direct Ophthalmoscopy: normal light reflex Neck Neck: No lymphadenopathy Thyroid: Thyroid normal Chest Chest palpation & inspection: normal inspection of the chest Resp Effort & Inspection: normal respiratory effort and no audible wheezes Auscultation: clear to auscultation bilaterally, no crackles, no wheezes and lung sounds not diminished Cardio Rate: regular rate Rhythm: regular rhythm Peripheral pulses: radial pulses present and dorsalis pedis present GI Other: colon test last year Palpation (GI): no masses Auscultation: normal bowel sounds and normoactive bowel sounds Rectal Exam - Female: deferred Skin General skin exam: no rashes or lesions noted Rashes: no rashes Neuro General: deep tendon reflexes 2+ bilaterally and No confusion Cranial nerves: Yes Equal, round and reactive pupils present, Yes Midline tongue present, Yes Normal hearing present and Yes Ability to bilaterally elevate shoulders present Cognition (Neuro): normal cognition Gait exam (Neuro): Normal gait present Motor exam (neuro): 5/5 motor strength present throughout Deep tendon reflexes (DTR's): Right brachioradialis reflex intensity grade: 2+, Left brachioradialis reflex intensity grade: 2+, Right patellar reflex intensity grade: 2+ and Left patellar reflex intensity grade: 2+ Extrem General: No edema Assessment & Plan Assessment & Plan (1) Medicare annual wellness visit, subsequent: Code(s): Z00.00 - Encounter for general adult medical examination without abnormal findings Plan: Patient is advised to eat healthy, keep well hydrated, keep active and have adequate sleep. (2) Hypertension: Code(s): I10 - Essential (primary) hypertension Qualifiers: Hypertension type: essential hypertension Qualified Code(s): I10 - Essential (primary) hypertension Plan: Continue with blood pressure medication. Decrease salt intake and exercise patient is on chlorthalidone 25 mg once a day losartan 100 mg once a day metoprolol 100 mg once a day (3) Hypercholesterolemia: Code(s): E78.00 - Pure hypercholesterolemia, unspecified Plan: Avoid fried foods, chicken skin, eggs, butter margarine, pastries and meat. Be it pork or beef they have a lot of cholesterol LDL goal of less than 130 and triglyceride of less than 150 patient will need blood work (4) Impaired glucose tolerance: Code(s): R73.02 - Impaired glucose tolerance (oral) Plan: Decrease the amount of carbohydrate intake, pasta, bread, rice and potatoes are all sugar and that is aside from all the sweet stuff, remember that fruits are good but they are Sweet also. (5) Obesity (BMI 30-39.9): Code(s): E66.9 - Obesity, unspecified Plan: Diet and exercise (6) Osteopenia: Comment: 09/2021, November 2023 Code(s): M85.80 - Other specified disorders of bone density and structure, unspecified site Plan: Bone density up-to-date discussed about calcium and vitamin-D (7) Hepatic steatosis: Code(s): K76.0 - Fatty (change of) liver, not elsewhere classified Plan: Low-fat diet and exercise (8) Thrombocytosis: Comment: Essential thrombocytosis Code(s): D47.3 - Essential (hemorrhagic) thrombocythemia Plan: Patient follows up with Hematology-Oncology and continue to follow-up (9) Asthma: Code(s): J45.909 - Unspecified asthma, uncomplicated Qualifiers: Asthma severity: mild Asthma persistence: unspecified Asthma complication type: uncomplicated Qualified Code(s): J45.909 - Unspecified asthma, uncomplicated Plan: On albuterol inhaler (10) Bipolar disorder: Comment: Social anxiety disorder [facility] every 2 weeks October 2019 Code(s): F31.9 - Bipolar disorder, unspecified Qualifiers: Active/Remission status: currently active Current bipolar episode type: mixed Current episode severity: mild Qualified Code(s): F31.61 - Bipolar disorder, current episode mixed, mild Plan: Continue with counseling and therapy (11) Dysuria: Code(s): R30.0 - Dysuria Plan History of Present Illness The patient is a 74-year-old female presenting for an annual wellness visit. She has a history of asthma, bipolar disorder, hypertension, hypercholesterolemia, impaired glucose tolerance, and osteopenia. Her last bone density test was in November 2023, and she is aware of hepatic steatosis. Her last colonoscopy was in 2023, and her mammogram in October 2024 was incomplete, with a follow-up scheduled for December 2024. Blood work from November 05 showed normal blood count with microcytosis and mild thrombocytosis, normal white blood cell count, and elevated liver enzymes. Her cholesterol levels were last checked in October 2023, with an LDL of 130 mg/dL and HDL of 51 mg/dL. The patient is on multiple medications including chlorthalidone, losartan, metoprolol, albuterol inhaler, clonazepam, Flonase, hydroxyurea, and Zyprexa. She also takes vitamin B complex, vitamin C, aspirin, fish oil, psyllium, and senna. She has allergies to amlodipine, nifedipine, hydrochlorothiazide, clonidine, tizanidine, lithium, lisinopril, hydralazine, and fluoxetine. The patient reports feeling hot in her feet when using the bathroom, which has been occurring for two weeks. She denies alcohol use, dizziness, nausea, vomiting, or fever. She experiences constipation but no changes in stool color or urinary issues, although she notes reduced urine output despite adequate fluid intake. The patient engages in daily exercise for one hour and maintains a low-fat diet. She has received the shingles vaccine and is up to date on tetanus and pneumonia vaccinations. Health Maintenance - Annual wellness visit conducted - Follow-up mammogram scheduled for December 2024 - Blood work follow-up planned - Shingles vaccination completed - Tetanus vaccination up to date - Pneumonia vaccination up to date - Low-fat diet and daily exercise recommended Social History - Exercise: Engages in daily exercise for one hour - Diet: Follows a low-fat diet Review of Systems - General: Denies fever, nausea, vomiting, or dizziness - Cardiovascular: Denies chest pain or dyspnea - Respiratory: Denies shortness of breath or cough - Gastrointestinal: Reports constipation; denies diarrhea or changes in stool color - Genitourinary: Reports reduced urine output despite adequate fluid intake; denies dysuria - Neurological: Reports feeling hot in feet when using the bathroom for two weeks Physical Exam General: Cooperative, healthy appearing, comfortable, no acute distress and well developed Orientation: Patient oriented x3 Limitations: No limitations Head: Normal to inspection Ears: Hearing loss noted, but no need for hearing aid yet Nose: Normal external nose present Face and sinus: Normal facial exam Eyes: Appearance normal, both eyes and all related structures Neck: Normal visual inspection and Yes full ROM Respiratory: Normal respiratory effort and able to speak in complete sentences. Clear to auscultation bilaterally Cardiovascular: Regular rate and rhythm. Normal S1 and S2 GI: Normal to inspection. Soft to palpation and nontender Skin: No rashes or lesions noted Neuro: Patient oriented x3 Extremities: Normal to inspection, but patient reports feeling very hot in the feet when going to the bathroom Results - Labs: Normal blood count with microcytosis and mild thrombocytosis, normal white blood cell count, elevated liver enzymes - Cholesterol: LDL 130 mg/dL, HDL 51 mg/dL Plan The patient will continue her current medications, including chlorthalidone, losartan, metoprolol, and others as prescribed. She is advised to maintain her low-fat diet and daily exercise regimen to manage her hypercholesterolemia and impaired glucose tolerance. Follow-up blood work is planned to monitor her liver enzymes and platelet count, given the history of hepatic steatosis and thrombocytosis. The patient is scheduled for a follow-up mammogram in December 2024 due to an incomplete result from October 2024. She has been advised to consider safety measures in the bathroom to prevent falls, such as installing grab bars or using a chair. The patient will continue with her current therapy and counseling for bipolar disorder and is encouraged to maintain communication with her healthcare providers. Patient was informed and verbally consented to the use of an ambient scribe for clinic note documentation during this visit. Discussion Notes During the visit, I discussed with the patient the importance of continuing her current medication regimen and maintaining a healthy lifestyle, including a low-fat diet and regular exercise. We reviewed her recent lab results, noting the need for follow-up blood work to monitor her liver enzymes and platelet count. I emphasized the importance of safety measures in the bathroom to prevent falls and encouraged her to continue therapy and counseling for her bipolar disorder. We also discussed the upcoming follow-up mammogram and the significance of staying up to date with vaccinations. Patient Instructions - Continue taking all prescribed medications as directed. - Maintain a low-fat diet and engage in daily exercise. - Schedule and complete follow-up blood work as planned. - Attend the follow-up mammogram appointment in December 2024. - Consider installing grab bars or using a chair in the bathroom for safety. - Continue therapy and counseling sessions for bipolar disorder. Orders: Orders US bladder Today R30.0 - Dysuria UA CC w/rflx Micro + Cult Today R30.0 - Dysuria Medications: Refilled sennosides-docusate sodium 8.6-50 mg (Senna Plus) 2 tab-caps (2 x 8.6-50 mg) PO BEDTIME 180 caps 1RF K59.00 - Constipation, unspecified Quality Reporting (2019) Depression/Bipolar (159/160/161/177) PHQ-9: Total score: 21 Coding Level of Care Code Medicare Subsequent (G0439) Diagnoses Medicare annual wellness visit, subsequent Z00.00 Essential hypertension I10 Hypertension type: essential hypertension Hypercholesterolemia E78.00 Impaired glucose tolerance R73.02 Obesity (BMI 30-39.9) E66.9 Osteopenia M85.80 Hepatic steatosis K76.0 Thrombocytosis D47.3 Mild asthma without complication, unspecified whether persistent J45.909 Asthma severity: mild Asthma persistence: unspecified Asthma complication type: uncomplicated Bipolar disorder, current episode mixed, mild F31.61 Active/Remission status: currently active Current bipolar episode type: mixed Current episode severity: mild Dysuria R30.0 Additional Codes PHQ-9 - 41399 - PHQ-9 Billing: Yes ([id number])
[2024-11-27 16:20] VITALS: BP 124/72; PULSE 88; O2SAT 97; BMI 34.5
--- OUTSIDE RECORDS SUMMARY | 2024-11-27 16:20 | XMS_ITS | Patient Health Record ---
Author Organization [facility] Jerri yamilka Gentile Address [address] [place] [address] Care Team Providers Care Milk Receiver Tank Truck Name Role Phone Vipul Shahid Primary Care Provider Arin Carver Unavailable [phone] William Bowen Unavailable [phone] Allergies No Known Allergies Reason For Referral No Information Medications Medication SIG (Take, Route, Frequency, Duration) Notes Start Date End Date Status Aspir-81 Active Metoprolol Succinate 100 MG 1 capsule Once a day Active clonazePAM 0.5 MG 1 tablet at bedtime Orally Once a day Active OLANZapine 5 MG 1 tablet Orally Once a day; Duration: 30 days Active Doxycycline 100mg Not-Taki ng Ciclopirox Olamine 0.77 % 1 application to affected area Externally Twice a day to effected areas on feet; Duration: 30 days Active Calcium 600-400 MG-UNIT 1 tablet with a meal Orally Once a day; Duration: 30 day(s) Not-Taking Losartan Potassium 100 MG 1 tablet Orally Once a day; Duration: 30 day(s) Active Docusate Sodium 100 MG 1 capsule as need ed Orally Once a day; Duration: 30 day(s) Active Vitamin D Active Immunizations [...] Status Risk Notes Problem 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, bilateral legs (I70.203) Active confirmed Vital Signs Height 5ft 3in in 01/06/2024 Weight 186 lbs 01/06/2024 BMI 32.94 kg/m2 01/06/2024 Encounters Encounter Location Date [facility] [address] [place] [id number] 01/06/2024 William Bowen Tinea unguium B35.1 ; Pain in right toe(s) M79.674 ; Pain in left toe(s) M79.675 ; Skin disease L98.9 ; 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, bilateral legs I70.203 ; Xerosis cutis L85.3 and Tinea pedis B35.3 [facility] [address] [place] [address] 05/08/2024 Arin Angel Assessments Encounter Date Diagnosis (ICD Code) Assessment Notes Treatment Notes Treatment Clinical Notes Section Notes 01/06/2024 Tinea unguium (ICD-10 - B35.1) 01/06/2024 Pain in right toe(s) (ICD-10 - M79.674) 01/06/2024 Pain in left toe(s) (ICD-10 - M79.675) 01/06/2024 Skin disease (ICD-10 - L98.9) 01/06/2024 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, bilateral legs (ICD-10 - I70.203) 01/06/2024 Xerosis cutis (ICD-10 - L85.3) 01/06/2024 Tinea pedis (ICD-10 - B35.3) Plan Of Treatment Pending Test Test Name Order Date [id number] SKIN LESIONS, OVER 4 02/10/20 22 [id number]-SWCC SKIN LESIONS, 2 TO 4 08/11/19 23 [id number]-ALPH SKIN LESIONS, 2 TO 4 04/22/20 20 [id number]-SJOQ SKIN LESIONS, 2 TO 4 08/27/19 21 [id number]-HIJV SKIN LESIONS, 2 TO 4 11/26/19 21 80882-URYF SKIN LESIONS, 2 TO 4 02/28/20 21 [id number]-YOXXYECR OF HEMATOMA/FLUID 023 Next Appt Details Provider Name:Arin rodriguez, 12/10/2024 01:30:00 PM, [address] [place], [address], Insurance Providers Payer Name Payer Address Payer Phone Subscriber Number Group Number Insured Name Patient Relationship to Insured Coverage Start Date Coverage End Date Medicare National [employer] [address] [place] [address] [id number] Jennifer Avelar Self - patient is the insured Medical (General) History Medical History History ICD Code Anxiety CAD (Cholesterol) Cataracts Depression Diverticulosis Glaucoma High blood pressure Macular degeneration Chicken pox Surgical History Surgery Date(Month/Year) Breast Surgery right ten years ago
== END 2024-11-27 17:33 | disposition home or self-care (01) ==
LOC: HO.HMCH 15:28
PROVIDERS: PCP Internal Medicine; Visit Provider Internal Medicine
DX: Z00.00 Encounter for general adult medical examination without abnormal findings (principal); D47.3 Essential (hemorrhagic) thrombocythemia; F31.61 Bipolar disorder, current episode mixed, mild; E66.9 Obesity, unspecified; Z68.34 Body mass index [BMI] 34.0-34.9, adult; I10 Essential (primary) hypertension; E78.00 Pure hypercholesterolemia, unspecified; R73.02 Impaired glucose tolerance (oral); M85.80 Other specified disorders of bone density and structure, unspecified site; K76.0 Fatty (change of) liver, not elsewhere classified; J45.909 Unspecified asthma, uncomplicated; R30.0 Dysuria

== ENCOUNTER → 2024-11-27 15:27 | Outpatient (BNVA) | payer MEDICARE, MEDICAID, SELFPAY | PROVIDERS: PCP Internal Medicine; Visit Provider Internal Medicine | DX: Z00.00 Encounter for general adult medical examination without abnormal findings (principal); I10 Essential (primary) hypertension; E78.00 Pure hypercholesterolemia, unspecified; R73.02 Impaired glucose tolerance (oral); M85.80 Other specified disorders of bone density and structure, unspecified site; K76.0 Fatty (change of) liver, not elsewhere classified; D47.3 Essential (hemorrhagic) thrombocythemia; J45.909 Unspecified asthma, uncomplicated; F31.61 Bipolar disorder, current episode mixed, mild; R30.0 Dysuria; E66.9 Obesity, unspecified; Z68.34 Body mass index [BMI] 34.0-34.9, adult; Z71.3 Dietary counseling and surveillance | CPT/HCPCS: 96127 ==

== ENCOUNTER 2024-12-25 08:07 | Outpatient (REF) | payer MEDICARE, MEDICAID, SELFPAY ==
[2024-12-25 08:36] LABS: MANUAL DIFF FLAG NO
[2024-12-25 08:49] LABS: Hematocrit 39.8 % (37.0-47.0); Hemoglobin 13.5 g/dl (12.0-16.0); Imm Gran Abs Auto 0.01 X10*3/uL (0.00-0.03); Imm Gran Pct Auto 0.2 % (0.0-0.4); Lymphocytes Absolute Auto 1.9 X10*3/uL (1.2-4.9); Mean Corpuscular HGB Conc 33.9 g/dl (31.0-35.0); Mean Corpuscular Hemoglobin 35.2 pg (27.0-33.0); Mean Corpuscular Volume 103.6 fL (80.0-98.0); NRBC Abs Auto 0.000 X10*3/uL (0.0-0.012); NRBC Pct Auto 0.0 /100WBC (0.0-0.2); Platelet Count 415 X10*3/uL (160-400); Red Blood Count 3.84 X10*6/uL (4.20-5.50); White Blood Count 5.2 X10*3/uL (4.8-10.8)
[2024-12-25 09:08] LABS: Appearance Urine Clear; Glucose Urine UA Negative (Negative); PH 6.0 (5.0-9.0); Specific Gravity - Urine 1.015 (1.005-1.025); UMIC TRIGGER UACC YES
[2024-12-25 09:32] LABS: Alanine Aminotransferase 26 U/L (0-31); Albumin Level 3.9 g/dL (3.5-5.0); Alkaline Phosphatase 80 U/L (39-117); Anion Gap 11 (12-20); Aspartate Amino Transferase 28 U/L (5-31); Blood Urea Nitrogen 25 mg/dL (9-16); Calcium 9.4 mg/dL (8.4-10.2); Carbon Dioxide 22 mmol/L (22-29); Chloride 113 mmol/L (96-108); Cholesterol 194 mg/dL (<200); Estimated Glomerular Filt Rate 51; HDL Cholesterol 48 mg/dL (>40); Potassium 4.1 mmol/L (3.3-5.1); Sodium 142 mmol/L (135-145); Total Protein 7.5 g/dL (6.5-8.0); Triglycerides 104 mg/dL (<150)
[2024-12-25 09:46] LABS: Hemoglobin A1C 119.4514 umol/L; Total Hemoglobin (HGBA1C) 3607.1221 umol/L
[2024-12-25 09:57] LABS: Folate 15.4 ng/mL (> or = 4.0); Vitamin B12 872 pg/mL (200-900)
[2024-12-25 10:00] LABS: Free T4 (Free Thyroxine) 1.18 ng/dL (0.71-1.85); Thyroid Stimulating Hormone 2.27 uIU/mL (0.32-4.0)
== END 2024-12-25 08:08 | disposition home or self-care (01) ==
LOC: HO.LAB 08:07
PROVIDERS: PCP Internal Medicine; Visit Provider Internal Medicine
DX: Z13.1 Encounter for screening for diabetes mellitus (principal); K76.0 Fatty (change of) liver, not elsewhere classified; R30.0 Dysuria; E78.00 Pure hypercholesterolemia, unspecified
CPT/HCPCS: 36415; 80053; 80061; 81001; 81003; 82306; 82607; 82746; 83036; 84439; 84443; 85025

== ENCOUNTER 2024-12-31 12:45 | Outpatient (REF) | payer MEDICARE, MEDICAID, SELFPAY ==
--- OUTSIDE RECORDS SUMMARY | 2024-04-02 06:40 | XMS_ITS ---
Demographics Address [address] [place] [address] Mobile Preferred Language en Marital Status Unknown Sabianist Affiliation Unknown Race Ethnic Group or Author Organization [facility] Address [address] [place] [address] Care Team Providers Care Section Forest Fire Warden Name Role Phone Vipul Shahid MD Primary Care Provider Juan Clifford [phone] REASON FOR VISIT screening Problems Problem Type SNOMED Code ICD Code Onset Dates Problem Status W/U Status Risk Notes Problem Diverticulosis o f large intestine without perforation or abscess without bleeding (K57.30) Active confirmed Encounters Encounter Location Date Provider Diagnosis [facility] [place] [address] [place], [place] [phone] 04/02/2024 Juan Gloria Colon cancer scree stephanie [...] Notes * AGUSTIN QUINTANA:[birth year] (74 yo F)Acc No.[id number]:04/02/2024 COLON WITH MAC Patient: Landry RODRIGUEZAGUSITN Beck Provider: Damián Gloria MD :1950 A ge:73 Y S ex:Female Date:04/02/2024 Address:[address], [place], [place] Pcp:Vipul Shahid MD Subjective: * Chief Complaints: [...] Pending * Provider: Damián Gloria MD Date: 1 06/02/2023 Generated for Hyacinth stone/Jono/Richieitting on: 0 12/31/2024 01:52 PM EDT
--- NOTE | ~2024-12-31 | MM_ITS ---
EXAMINATIONS: 1. MM DIAGNOSTIC DIGITAL BREAST TOMOSYNTHESIS, RIGHT 2. Targeted ultrasound of the right breast CLINICAL INFORMATION: Callback from screening for right breast findings: -Asymmetry in the upper breast middle depth on the MLO view. -Asymmetry in the inferior breast posterior depth on the MLO view, possible skin lesion. COMPARISON: Comparison made to multiple prior, most recent October 15, 2024, and most remote August 28, 2018. TECHNIQUE: Digital breast tomosynthesis is performed in mediolateral 90 degrees and mediolateral oblique views along with computer-aided detection (CAD). Synthesized 2D images are generated from the tomosynthesis. Spot compression tomosynthesis images were also obtained. FINDINGS: BREAST COMPOSITION: There are scattered areas of fibroglandular density (ACR BI-RADS breast composition Category b). RIGHT BREAST: -The asymmetry in the upper breast middle depth on the MLO view is pliable with spot compression. Local parenchyma has similar appearance to multiple prior studies as far back as 2018, and likely represented overlapping fibroglandular breast tissue. Targeted ultrasound of the right breast was performed at the location of the mammographic finding. The survey throughout the upper outer quadrant did not reveal suspicious sonographic findings. -The asymmetry in the inferior breast posterior depth seen on the MLO view correlates with a skin lesion that was marked with a circular skin marker. MM/MM tomosynthesis added views R IMPRESSION: RIGHT BREAST: Benign, no mammographic evidence of malignancy. Normal interval follow-up is recommended in 12 months. ASSESSMENT: BI-RADS 2 - Benign Findings RECOMMENDATION: 1 year F/U Results were provided to the patient at time of visit by the technologist. This patient's information was entered into a reminder system with a target due date for their next mammogram. Electronically signed by: Naomi Alonso MD 12/31/2024 01:38 PM EDT
--- OUTSIDE RECORDS SUMMARY | 2024-12-31 13:52 | XMS_ITS | Patient Health Record ---
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, bilateral legs (I70.203) Active confirmed Vital Signs Height 5ft 3in in 01/06/2024 Weight 186 lbs 01/06/2024 BMI 32.94 kg/m2 01/06/2024 Encounters Encounter Location Date [facility] [address] [facility] [address] [place] [address] 01/06/2024 William Bowen Tinea unguium B35.1 ; Pain in right toe(s) M79.674 ; Pain in left toe(s) M79.675 ; Skin disease L98.9 ; Unspecified atherosclerosis of red devil arteries of extremities, bilateral legs I70.203 ; Xerosis cutis L85.3 and Tinea pedis B35.[address] [address] 05/08/2024 Arin Angel [address] [address] 12/06/2024 Arin Angel Assessments Encounter Date Diagnosis (ICD Code) Assessment Notes Treatment Notes Treatment Clinical Notes Section Notes 01/06/2024 Tinea unguium (ICD-10 - B35.1) 01/06/2024 Pain in right toe(s) (ICD-10 - M79.674) 01/06/2024 Pain in left toe(s) (ICD-10 - M79.675) 01/06/2024 Skin disease (ICD-10 - L98.9) 01/06/2024 Unspecified atherosclerosis of red devil arteries of extremities, bilateral legs (ICD-10 - I70.203) 01/06/2024 Xerosis cutis (ICD-10 - L85.3) 01/06/2024 Tinea pedis (ICD-10 - B35.3) Plan Of Treatment Pending Test Test Name Order Date 20137-EWAE SKIN LESIONS, OVER 4 02/10/20 22 01144-AFXR SKIN LESIONS, 2 TO 4 08/11/19 23 38706-DMZG SKIN LESIONS, 2 TO 4 04/22/20 20 03564-QHFU SKIN LESIONS, 2 TO 4 08/27/19 21 71686-EUFQ SKIN LESIONS, 2 TO 4 11/26/19 21 35967-IGVA SKIN LESIONS, 2 TO 4 02/28/20 21 94353-REFPXYJN OF HEMATOMA/FLUID 023 Next Appt Details Provider Name:Arin rodriguez, 02/01/2025 11:15:00 AM, [address] [facility], [address], [place], [address], Insurance Providers Payer Name Payer Address Payer Phone Subscriber Number Group Number Insured Name Patient Relationship to Insured Coverage Start Date Coverage End Date Medicare National Govt Svcs Inc [address] [place] [address] [id number] Jennifer vAelar Self - patient is the insured Medical (General) History Medical History History ICD Code Anxiety CAD (Cholesterol) Cataracts Depression Diverticulosis Glaucoma High blood pressure Macular degeneration Chicken pox Surgical History Surgery Date(Month/Year) Breast Surgery right ten years ago
== END 2024-12-31 12:46 | disposition home or self-care (01) ==
LOC: HO.MAMMO 12:45
PROVIDERS: PCP Internal Medicine; Visit Provider Internal Medicine
DX: N64.89 Other specified disorders of breast (principal)
CPT/HCPCS: 76642; 77061; 77065

== ENCOUNTER → 2024-12-31 13:00 | Outpatient (BNV) | payer MEDICARE, MEDICAID, SELFPAY | PROVIDERS: PCP Internal Medicine; Visit Provider Radiology Body Imaging | DX: R92.8 Other abnormal and inconclusive findings on diagnostic imaging of breast (principal) | CPT/HCPCS: 76642; 77065; G0279 ==

== ENCOUNTER 2025-01-04 15:04 | Outpatient (REF) | payer MEDICARE, MEDICAID, SELFPAY ==
--- OUTSIDE RECORDS SUMMARY | 2023-11-22 09:30 | XMS_ITS ---
Author Organization [facility] yamil[place] Address [address] [place] [address] Care Team Providers Care Chiropractor Assistant Name Role Phone Vipul Shahid Primary Care Provider Arin Carver Unavailable [phone] William Bowen Unavailable [phone] REASON FOR VISIT Painful nail(s) aggrevated by shoes and causing difficulty standing/walking. Medications Medication SIG (Take, Route, Frequency, Duration) Notes Start Date End Date Status Ciclopirox Olamine 0.77 % 1 application to affected area Externally Twice a day to effected areas on feet; Duration: 30 days Active Encounters Encounter [facility] Date [facility] [address] [address] 11/22/2023 William Bowen Tinea unguium B35.1 ; Pain in right toe(s) M79.674 ; Pain in left toe(s) M79.675 ; Skin disease L98.9 ; Unspecified atherosclerosis of [place] arteries of extremities, bilateral legs I70.203 ; Xerosis cutis L85.3 and Tinea pedis B35.3 Assessments Encounter Date Diagnosis (ICD Code) Assessment Notes Treatment Notes Treatment Clinical Notes Section Notes 11/22/2023 Tinea unguium (ICD-10 - B35.1) 11/22/2023 Pain in right toe(s) (ICD-10 - M79.674) 11/22/2023 Pain in left toe(s) (ICD-10 - M79.675) 11/22/2023 Skin disease (ICD-10 - L98.9) 11/22/2023 Unspecified atherosclerosis of [place] arteries of extremities, bilateral legs (ICD-10 - I70.203) 11/22/2023 Xerosis cutis (ICD-10 - L85.3) 11/22/2023 Tinea pedis (ICD-10 - B35.3) Plan Of Treatment Medication Medication Name Sig Start Date Stop Date Notes Ciclopirox Olamine 0.77 % 1 application to affected area Externally Twice a day to effected areas on feet; Duration: 30 days Next Appt Details Follow Up: 3 Months, Reason: Provider Name:Arin Gee michael, 02/01/2025 11:15:00 AM, [address] , [address], [place], [address], Procedure Notes * Category Sub-Category Detail Notes [...] as necessary. Patient chooses, no pharmaceutical tx (95988) Keratoma Treatment Parring or Cutting o f Benign Hyperkeratotic Lesion(s) 23073 (2-4 Lesions) - The Benign hyperkeratotic lesions, as described above were pared, and/or cut utilizing a sterile #15 blade, tissue nippers, and/or dremel, Q8 Progress Notes * Jennifer QUINTANADOB:[birth year] (74 yo F)Acc No.[id number]:11/22/2023 Progress Note Patient: Jennifer LE Provider: Dionne Bowen DPM :1950 A ge:73 Y S ex:Female Date:11/22/2023 Address:[address] [place] [address], [id number] Pcp:Vipul Shahid Subjective: * Chief Complaints: * [...] enies. C ardiovascular: Pacemaker d enies. M CABIN WORKER d enies. W PW d enies. C [...] - L98.9? 5. U nspecified atherosclerosis of [place] arteries of extremities, bilateral legs - I70.203 [...] as necessary. Patient chooses, no pharmaceutical tx (42306). K eratoma Treatment: Parring or Cutting of Benign Hyperkeratotic Lesion(s) 1 1056 (2-4 Lesions) - The Benign hyperkeratotic lesions, as described above were pared, and/or cut utilizing a sterile #15 blade, tissue nippers, and/or dremel, Q8. * Procedure Codes: 1 1721 DEBRIDE NAIL, 6 OR MORE, Modifiers: XS , 96053 TRIM SKIN LESIONS, 2 TO 4, Modifiers: Q8 * Follow Up: 3 Months * Images: * The named appointment provid er may or may not be the originator of this progress note, and it is not deemed complete until electronically signed by the appointment provider. Sign off status: Pending * Provider: Dionne Bowen DPM Date: 0 11/22/2023 Generated for Hyacinth stone/Jono/Rogelio on: 0 01/04/2025 03:06 PM EDT History and Physical Notes * HPI (History [...]
--- OUTSIDE RECORDS SUMMARY | 2023-11-25 09:15 | XMS_ITS ---
Author Organization [facility] Address [address] [place] [address] Care Team Providers Care Wireless Technician Name Role Phone Vipul Shahid Primary Care Provider Arin Carver Unavailable [phone] William Bowen [phone] Nguyen Encounters Encounter Location Date Provider Diagnosis [address] [address] 11/25/2023 William Bowen Plan Of Treatment Next Appt Details Provider Name:Arin Sarahprasanna michael, 02/01/2025 11:15:00 AM, [address] [place] [address], [address], Progress Notes * Jennifer QUINTANADOB:[birth year] (74 yo F)Acc No.[id number]:11/25/2023 Progress Note Patient: Landry ROSSIMATTHEWKiran Jennifer Provider: Dionne Bowen DPM :1950 A ge:73 Y S ex:Female Date:11/25/2023 Address:[address] [place] [address], [place] [id number] Pcp:Vipul Shahid Subjective: * Chief Complaints: * [...] 0 11/25/2023 Generated for Hyacinth stone/Jono/Rogelio on: 01/04/2025 03:07 PM EDT
--- OUTSIDE RECORDS SUMMARY | 2024-04-02 06:40 | XMS_ITS ---
Demographics Address [address] [place] [address] Mobile Preferred Language en Marital Status Unknown Latter Day Affiliation Unknown Race Ethnic Group or Author Organization [facility] Address [address] [place] [address] Care Team Providers Care Pastry Chef Name Role Phone Vipul Shahid MD Primary Care Provider Juan Clifford [phone] REASON FOR VISIT screening Problems Problem Type SNOMED Code ICD Code Onset Dates Problem Status W/U Status Risk Notes Problem Diverticulosis o f large intestine without perforation or abscess without bleeding (K57.30) Active confirmed Encounters Encounter Location Date Provider [place] [facility] [place] [address] [place], [place] [phone] 04/02/2024 Juan Gloria Colon cancer scree stephanie [...] Notes * AGUSTIN QUINTANA:[birth year] (74 yo F)Acc No.[id number]:04/02/2024 COLON WITH MAC Patient: Landry RODRIGUEZAGUSTIN Beck Provider: Damián Gloria MD :1950 A ge:73 Y S ex:Female Date:04/02/2024 Address:[address], [place], [place] Pcp:Viupl Shahid MD Subjective: * Chief Complaints: * [...] 06/02/2023 Generated for Hyacinth stone/Jono/Richieitting on: 0 01/04/2025 03:07 PM EDT
--- OUTSIDE RECORDS SUMMARY | 2024-05-11 08:15 | XMS_ITS ---
Author Organization [facility] Address [address] [place] [address] Care Team Providers Care City Dispatch Supervisor Name Role Phone Vipul Shahid Primary Care Provider Arin Carver [phone] REASON FOR VISIT Transfer to Different Provider Encounters Encounter Location Date Provider Diagnosis [address] [address] 05/11/2024 Arin Angel Plan Of Treatment Next Appt Details Provider Name:Arin rodriguez, 02/01/2025 11:15:00 AM, [address] [address], [place], [address], Progress Notes * Jennifer QUINTANADOB:[birth year] (74 yo F)Acc No.[id number]:05/11/2024 Progress Note Patient: Landry ROSSIJENI Jennifer Provider: Efren Angel DPM :1950 A ge:73 Y S ex:Female Date:05/11/2024 Address:[address] [place] [address], [place] [facility] Pcp:Vipul Shahid Subjective: * Chief Complaints: * [...] 0 05/11/2024 Generated for Hyacinth stone/Jono/Rogelio on: 0 01/04/2025 03:07 PM EDT
--- OUTSIDE RECORDS SUMMARY | 2024-12-10 09:30 | XMS_ITS ---
Author Organization [facility] Address [address] [place] [address] Care Team Providers Care Ms Sql Dba Name Role Phone Vipul Shahid Primary Care Provider Arin Carver [phone] Encounters Encounter Location Date Provider Diagnosis [address] [address] 12/10/2024 Arin Angel Plan Of Treatment Next Appt Details Provider Name:Arin rodriguez, 02/01/2025 11:15:00 AM, [address] [facility], Suite [facility], [place], [address], Progress Notes * Jennifer QUINTANADOB:[birth year] (74 yo F)Acc No.[id number]:12/10/2024 Progress Note Patient: Landry ROSSIJENI Jennifer Provider: Efren Angel DPM :1950 A ge:74 Y S ex:Female Date:12/10/2024 Address:[address] [place] [address], [facility] Pcp:Vipul Shahid Subjective: * Chief Complaints: * [...] 12/10/2024 Generated for Hyacinth Suarezg/Rogelio on: 0 01/04/2025 03:07 PM EDT
--- NOTE | ~2025-01-04 | US_ITS ---
EXAMINATION: US PELVIS LIMITED (BLADDER) CLINICAL INFORMATION: Dysuria. COMPARISON: None available. TECHNIQUE: Real-time imaging of the bladder. FINDINGS: BLADDER: Well distended and normal. Bilateral ureteral jets are demonstrated. Prevoid bladder volume is 529 mL. Postvoid bladder volume is 80 mL. US/US bladder IMPRESSION: Unremarkable bladder ultrasound with minimal residual volume postvoid.. Electronically signed by: Dmitriy Soler MD 01/04/2025 03:48 PM EDT
--- OUTSIDE RECORDS SUMMARY | 2025-01-04 15:07 | XMS_ITS | Patient Health Record ---
Demographics Address [address] [place] [address] Mobile Preferred Language en Marital Status Unknown Pentecostalism Affiliation Unknown Race Ethnic Group or Author Organization [facility] Address [address] [place] [address] Care Team Providers Care Market Basket Maker Name Role Phone Vipul Shahid MD Primary Care Provider Juan Clifford [phone] Allergies No Known Allergies Reason For Referral [...] Problem Screening for malignant neoplasm of colon (565477104) Encounter for screening for malignant neoplasm of colon (Z12.11) Active confirmed Problem Diverticulosis o f large intestine without perforation or abscess without bleeding (K57.30) Active confirmed Problem Long-term current use of aspirin (812083558414 103) Aspirin long-term use (Z79.82) Active confirmed Encounters Encounter Location Date Provider Diagnosis [facility] Outpatient [address] [place] [phone] 04/02/2024 Juan Gloria Colon cancer linda brown Z12.11 ; Diverticulosis of large intestine without [...] OF [place] [address] [place] [address] [id number] AGUSTIN QUINTANA Self - patient is the insured MEDICAID OF [facility] [address] [place] [address] [id number] AGUSTIN QUINTANA Self - patient is the insured Medical (General) History Medical History History ICD Code Hypertension Denies HI,DM,CVA,Lung disease,renal dise ase Anxiety/Depression Asthma- Glaucoma- 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 Mancia Surgical History Surgery Date(Month/Year) lumpectomy, right breast--benign
--- OUTSIDE RECORDS SUMMARY | 2025-01-04 15:07 | XMS_ITS | Patient Health Record ---
Author Organization [facility] Jerri yamilka Gentile Address [address] [place] [address] Care Team Providers Care Weathercaster Name Role Phone Vipul Shahid Primary Care Provider Arin Carver Unavailable [phone] William Bowen Unavailable [phone] Allergies No Known Allergies Reason For Referral [...] Status Risk Notes Problem Unspecified atherosclerosis of [place] arteries of extremities, bilateral legs (I70.203) Active confirmed Vital Signs Height 5ft 3in in 01/06/2024 Weight 186 lbs 01/06/2024 BMI 32.94 kg/m2 01/06/2024 Encounters Encounter Location Date [facility] [address] [facility] [address] [place] [address] 01/06/2024 William Bowen Tinea unguium B35.1 ; Pain in right toe(s) M79.674 ; Pain in left toe(s) M79.675 ; Skin disease L98.9 ; Unspecified atherosclerosis of [place] arteries of extremities, bilateral legs I70.203 ; Xerosis cutis L85.3 and Tinea pedis B35.[address] [address] 05/08/2024 Arin Angel [address] [address] 12/06/2024 Arin Angel Assessments Encounter Date Diagnosis (ICD Code) Assessment Notes Treatment Notes Treatment Clinical Notes Section Notes 01/06/2024 Tinea unguium (ICD-10 - B35.1) 01/06/2024 Pain in right toe(s) (ICD-10 - M79.674) 01/06/2024 Pain in left toe(s) (ICD-10 - M79.675) 01/06/2024 Skin disease (ICD-10 - L98.9) 01/06/2024 Unspecified atherosclerosis of [place]ock arteries of extremities, bilateral legs (ICD-10 - I70.203) 01/06/2024 Xerosis cutis (ICD-10 - L85.3) 01/06/2024 Tinea pedis (ICD-10 - B35.3) Plan Of Treatment Pending Test Test Name Order Date 02815-OOMW SKIN LESIONS, OVER 4 02/10/20 22 34955-DVSJ SKIN LESIONS, 2 TO 4 08/11/19 23 98291-UGFZ SKIN LESIONS, 2 TO 4 04/22/20 20 04272-XVYI SKIN LESIONS, 2 TO 4 08/27/19 21 14954-IOQF SKIN LESIONS, 2 TO 4 11/26/19 21 44459-ORVG SKIN LESIONS, 2 TO 4 02/28/20 21 86996-EKKKGTFO OF HEMATOMA/FLUID 023 Next Appt Details Provider Name:Arin rodriguez, 02/01/2025 11:15:00 AM, [address] [facility], [address], [place], [address], Insurance Providers Payer Name Payer Address Payer Phone Subscriber Number Group Number Insured Name Patient Relationship to Insured Coverage Start Date Coverage End Date Medicare National Govt Svcs Inc [address] [place] [address] [id number] Jennifer Avelar Self - patient is the insured Medical (General) History Medical History History ICD Code Anxiety CAD (Cholesterol) Cataracts Depression Diverticulosis Glaucoma High blood pressure Macular degeneration Chicken pox Surgical History Surgery Date(Month/Year) Breast Surgery right ten years ago
== END 2025-01-04 15:05 | disposition home or self-care (01) ==
LOC: HO.US 15:04
PROVIDERS: PCP Internal Medicine; Visit Provider Internal Medicine
DX: R30.0 Dysuria (principal)
CPT/HCPCS: 76857

== ENCOUNTER → 2025-01-04 15:24 | Outpatient (BNV) | payer MEDICARE, MEDICAID, SELFPAY | PROVIDERS: PCP Internal Medicine; Visit Provider Radiology Diagnostic Radiology | DX: R30.0 Dysuria (principal) | CPT/HCPCS: 76857 ==

== ENCOUNTER 2025-01-16 15:23 | Outpatient (AMB) | payer MEDICARE, MEDICAID, SELFPAY ==
--- OUTSIDE RECORDS SUMMARY | 2023-11-22 09:30 | XMS_ITS ---
Author Organization [facility] yamil[place] Address [address] [place] [address] Care Team Providers Care Assistant County Attorney Name Role Phone Vipul Shahid Primary Care Provider Arin Carver Unavailable [phone] William Bowen Unavailable [phone] REASON FOR VISIT Painful nail(s) aggrevated by shoes and causing difficulty standing/walking. Medications Medication SIG (Take, Route, Frequency, Duration) Notes Start Date End Date Status Ciclopirox Olamine 0.77 % 1 application to affected area Externally Twice a day to effected areas on feet; Duration: 30 days Active Encounters Encounter Location Date [facility] [address] [address] 11/22/2023 William Bowen Tinea unguium B35.1 ; Pain in right toe(s) M79.674 ; Pain in left toe(s) M79.675 ; Skin disease L98.9 ; Unspecified atherosclerosis of [place] arteries of extremities, bilateral legs I70.203 ; Xerosis cutis L85.3 and Tinea pedis B35.3 Assessments Encounter Date Diagnosis (ICD Code) Assessment Notes Treatment Notes Treatment Clinical Notes Section Notes 11/22/2023 Tinea unguium (ICD-10 - B35.1) 11/22/2023 Pain in right toe(s) (ICD-10 - M79.674) 11/22/2023 Pain in left toe(s) (ICD-10 - M79.675) 11/22/2023 Skin disease (ICD-10 - L98.9) 11/22/2023 Unspecified atherosclerosis of [place] arteries of extremities, bilateral legs (ICD-10 - [...] 11:15:00 AM, [address] , [address], [place], [address], Procedure Notes * Category Sub-Category Detail Notes [...] as necessary. Patient chooses, no pharmaceutical tx (78633) Keratoma Treatment Parring or Cutting o f Benign Hyperkeratotic Lesion(s) 87245 (2-4 Lesions) - The Benign hyperkeratotic lesions, as described above were pared, and/or cut utilizing a sterile #15 blade, tissue nippers, and/or dremel, Q8 Progress Notes * Jennifer QUINTANADOB:[birth year] (74 yo F)Acc No.[id number]:11/22/2023 Progress Note Patient: Jennifer LE Provider: Dionne Bowen DPM :1950 A ge:73 Y S ex:Female Date:11/22/2023 Address:[address] [place] [address], [id number] Pcp:Vipul Shahid Subjective: * Chief Complaints: * [...] enies. C ardiovascular: Pacemaker d enies. 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 W PW d enies. C [...] - L98.9? 5. U nspecified atherosclerosis of [place] arteries of extremities, bilateral legs - I70.203 [...] as necessary. Patient chooses, no pharmaceutical tx (20942). K eratoma Treatment: Parring or Cutting of Benign Hyperkeratotic Lesion(s) 1 1056 (2-4 Lesions) - The Benign hyperkeratotic lesions, as described above were pared, and/or cut utilizing a sterile #15 blade, tissue nippers, and/or dremel, Q8. * Procedure Codes: 1 1721 DEBRIDE NAIL, 6 OR MORE, Modifiers: XS , 39356 TRIM SKIN LESIONS, 2 TO 4, Modifiers: Q8 * Follow Up: 3 Months * Images: * The named appointment provid er may or may not be the originator of this progress note, and it is not deemed complete until electronically signed by the appointment provider. Sign off status: Pending * Provider: Dionne Bowen DPM Date: 0 11/22/2023 Generated for Hyacinth stone/Jono/Rogelio on: 0 01/16/2025 06:19 PM EDT History and Physical Notes * [...]
--- OUTSIDE RECORDS SUMMARY | 2023-11-25 09:15 | XMS_ITS ---
Author Organization [facility] Address [address] [place] [address] Care Team Providers Care Agricultural Appraiser Name Role Phone Vipul Shahid Primary Care Provider Arin Carver Unavailable [phone] William Bowen [phone] Nguyen Encounters Encounter Location Date Provider Diagnosis [address] [address] 11/25/2023 William Bowen Plan Of Treatment Next Appt Details Provider Name:Arin Sarahprasanna michael, 02/01/2025 11:15:00 AM, [address] [place] [address], [address], Progress Notes * Jennifer QUINTANADOB:[birth year] (74 yo F)Acc No.[id number]:11/25/2023 Progress Note Patient: Landry ROSSIMATTHEWKiran Jennifer Provider: Dionne Bowen DPM :1950 A ge:73 Y S ex:Female Date:11/25/2023 Address:[address] [place] [address], [place] [id number] Pcp:Vipul Shahid Subjective: * Chief Complaints: * [address] gNuyen. * Medical History: Objective: * Vitals: Assessment: Plan: * Treatment: * Images: * The named appointment provid er may or may not be the originator of this progress note, and it is not deemed complete until electronically signed by the appointment provider. Sign off status: Pending * Provider: Dionne Bowen DPM Date: 0 11/25/2023 Generated for Hyacinth stone/Jono/Rogelio on: 01/16/2025 06:19 PM EDT
--- OUTSIDE RECORDS SUMMARY | 2024-04-02 06:40 | XMS_ITS ---
Demographics Address [address] [place] [address] Mobile Preferred Language en Marital Status Unknown Amish Affiliation Unknown Race Ethnic Group or Author Organization [facility] Address [address] [place] [address] Care Team Providers Care Antique Clocks Repairer Name Role Phone Vipul Shahid MD Primary Care Provider Juan Clifford [phone] REASON FOR VISIT screening Problems Problem Type SNOMED Code ICD Code Onset Dates Problem Status W/U Status Risk Notes Problem Diverticular disease of colon (331078508) Diverticulosis of large intestine without perforation or abscess without bleeding (K57.30) Active confirmed Encounters Encounter Location Date Provider Diagnosis [facility] [place] [address] [place], [place] [phone] 04/02/2024 Juan Gloria Colon cancer scree stephanie [...] Notes * AGUSTIN QUINTANA:[birth year] (74 yo F)Acc No.[id number]:04/02/2024 COLON WITH MAC Patient: Landry ROSSIAGUSTIN NGO Provider: Damián Gloria MD :1950 A ge:73 Y S ex:Female Date:04/02/2024 Address:[address] [place] [address] [address], [place], [place] Pcp:Vipul Shahid MD Subjective: * Chief Complaints: [...] Date: 06/02/2023 Generated for Hyacinth stone/Jono/Richieitting on: 0 01/16/2025 06:19 PM EDT
--- OUTSIDE RECORDS SUMMARY | 2024-05-11 08:15 | XMS_ITS ---
Author Organization [facility] Address [address] [place] [address] Care Team Providers Care Non Emergency Services Ambulance Driver Name Role Phone Vipul Shahid Primary Care Provider Arin Carver [phone] REASON FOR VISIT Transfer to Different Provider Encounters Encounter Location Date Provider Diagnosis [address] [address] 05/11/2024 Arin Angel Plan Of Treatment Next Appt Details Provider Name:Arin rodriguez, 02/01/2025 11:15:00 AM, [address] [address], [place], [address], Progress Notes * Jennifer QUINTANADOB:[birth year] (74 yo F)Acc No.[id number]:05/11/2024 Progress Note Patient: Landry ROSSIJENI Jennifer Provider: Efren Angel DPM :1950 A ge:73 Y S ex:Female Date:05/11/2024 Address:[address] [place] [address], [place] [facility] Pcp:Vipul Shahid Subjective: * Chief Complaints: * [...] 05/11/2024 Generated for Hyacinth stone/Jono/Rogelio on: 0 01/16/2025 06:19 PM EDT
--- OUTSIDE RECORDS SUMMARY | 2024-12-10 09:30 | XMS_ITS ---
Author Organization [facility] Address [address] [place] [address] Care Team Providers Care Test Baker Name Role Phone Vipul Shahid Primary Care Provider Arin Carver [phone] Encounters Encounter Location Date Provider Diagnosis [address] [address] 12/10/2024 Arin Angel Plan Of Treatment Next Appt Details Provider Name:Arin rodriguez, 02/01/2025 11:15:00 AM, [address] [facility], Suite [facility], [place], [address], Progress Notes * Jennifer QUINTANADOB:[birth year] (74 yo F)Acc No.[id number]:12/10/2024 Progress Note Patient: Landry ROSSIJENI Jennifer Provider: Efren Angel DPM :1950 A ge:74 Y S ex:Female Date:12/10/2024 Address:[address] [place] [address], [id number] Pcp:Vipul Shahid Subjective: * Chief Complaints: * [...] 0 12/10/2024 Generated for Hyacinth Suarezg/Rogelio on: 0 01/16/2025 06:19 PM EDT
[2025-01-16 16:29] VITALS: BP 120/60; PULSE 58; RESP 18; TEMP 36.3; O2SAT 97; BMI 34.9
--- NOTE | 2025-01-16 16:29 | A.OFFVIS_ITS ---
Vital Signs 01/16/25 16:29 Height 5 ft 3 in Weight 197 lb 4 oz BMI 34.9 BP 120/60 Blood Pressure Location Lt brachial Position Sitting Respiration 18 Pulse 58 Pulse Source Pulse Oximeter Temp 97.3 F Temp Source Temporal Artery Scan Pulse Oximetry (%) 97 Oxygen Delivery Method Room Air Intake Visit Reasons: Hypertension Protein Chemist Required: No Accompanied by: Self / Same As Patient Allergies fluoxetine (Prozac) Allergy (Unknown, Verified 01/16/25 16:29) Unknown hydralazine Allergy (Unknown, Verified 01/16/25 16:29) Unknown lisinopril Allergy (Unknown, Verified 01/16/25 16:29) Unknown lithium Allergy (Unknown, Verified 01/16/25 16:) Unknown tizanidine Allergy (Unknown, Verified 01/16/25 16:) Unknown clonidine Adverse Reaction (Intermediate, Verified 01/16/25 16:29) dry mouth hydrochlorothiazide Adverse Reaction (Intermediate, Verified 01/16/25 16:29) hyponatremia nifedipine Adverse Reaction (Intermediate, Verified 01/16/25 16:29) Headache amlodipine Adverse Reaction (Unknown, Verified 01/16/25 16:29) urinary retendtion PFSH Medical History Onychomycosis Finger pain, left Stye Ringing in ears Epidermal inclusion cyst Abdominal wall abscess Abscess Age-related osteoporosis without current pathological fracture Hypercalcemia Breast cancer screening by mammogram Vaginal cyst Renal insufficiency Macular degeneration Diverticulitis Glaucoma Bipolar disorder Hypercholesterolemia Obesity (BMI 30-39.9) Hypertension Osteopenia Nontoxic multinodular goiter Asthma Surgical History History of breast biopsy H/O elbow surgery Family History Father CVD (cardiovascular disease) Myocardial infarction Mother No problems noted. Maternal Aunt Uterine cancer Family/Other Breast cancer Social History Household Members: Children Housing: Apartment Are you a primary career services coordinator to a significant other at home: No Do you presently have visiting nurse or other home services: No Alcohol intake: never Patient Tobacco Use Status: Never used Tobacco Tobacco use type: Cigarette e-Cigarette/Vaping Use: Never Used Second Hand Smoke Exposure: No service: No Current occupational status: retired Current occupational exposures/hazards: No Cognitive needs: No Hearing needs: No Vision needs: Yes Female Reproductive History Menstrual Age of Menarche: 13 Physical Exam Vital Signs: Last Vital Signs Temp 97.3 F 01/16/25 16:29 Pulse 58 01/16/25 16:29 Resp 18 01/16/25 16:29 BP 120/60 01/16/25 16:29 Pulse Ox 97 01/16/25 16:29 Oxygen Delivery Method Room Air 01/16/25 16:29 BMI result Body Mass Index 34.9 Const General: alert; No acute distress Eyes Conjunctivae: conjunctivae normal Resp Auscultation: clear to auscultation bilaterally Cardio Rate: regular rate Rhythm: regular rhythm GI Inspection: Yes normal to inspection Extrem General: Yes normal to inspection and No edema Assessment & Plan Assessment & Plan (1) Hypertension: Code(s): I10 - Essential (primary) hypertension Category: Medical Qualifiers: Hypertension type: essential hypertension Qualified Code(s): I10 - Essential (primary) hypertension Plan: Continue with blood pressure medication. Decrease salt intake and exercise patient is on chlorthalidone 25 mg once a day with losartan 100 mg once a day metoprolol 100 mg once a day (2) Hypercholesterolemia: Code(s): E78.00 - Pure hypercholesterolemia, unspecified Category: Medical Plan: Avoid fried foods, chicken skin, eggs, butter margarine, pastries and meat. Be it pork or beef they have a lot of cholesterol LDL goal of less than 130 and triglyceride of less than 150 (3) Impaired glucose tolerance: Code(s): R73.02 - Impaired glucose tolerance (oral) Category: Medical Plan: Decrease the amount of carbohydrate intake, pasta, bread, rice and potatoes are all sugar and that is aside from all the sweet stuff, remember that fruits are good but they are Sweet also. (4) Bipolar disorder: Comment: Social anxiety disorder [facility] every 2 weeks October 2019 Code(s): F31.9 - Bipolar disorder, unspecified Category: Medical Qualifiers: Active/Remission status: currently active Current bipolar episode type: mixed Current episode severity: mild Qualified Code(s): F31.61 - Bipolar disorder, current episode mixed, mild Plan: Continue with counseling and therapy (5) Hepatic steatosis: Code(s): K76.0 - Fatty (change of) liver, not elsewhere classified Category: Medical Plan: Low-fat diet and exercise Plan History of Present Illness The patient is a 74-year-old female presenting for a follow-up visit and wellness check. She has a history of asthma, hypertension, hypercholesterolemia, and bipolar disorder. Her osteopenia was last evaluated with a bone density scan in November 2023, and she has hepatic steatosis. The patient underwent an ultrasound due to psuria, which returned negative results. Blood work from December 25 showed normal blood counts with macrocytosis and mild thrombocytosis. Electrolytes, including sodium and potassium, were within normal limits, and creatinine was noted at 1.05. Blood glucose was slightly elevated at 101, but hemoglobin A1c was normal. Liver function tests were normal, and LDL cholesterol was 126. B12, folic acid, and thyroid levels were within normal limits, and a urine test was negative. Hepatitis B test was negative, and a breast ultrasound was also negative. The patient is on chlorothalidone, losartan, and metoprolol for hypertension management. Her cholesterol management includes a goal of LDL less than 130 and triglycerides less than 150. For elevated blood glucose, she continues with dietary counseling and exercise. Health Maintenance - Colonoscopy last performed in March 2024 - Mammogram up to date as of October 2024 - Vaccinations: Flu shot, tetanus, pneumonia, and Colibria vaccine discussed Social History - Reports limited water intake due to feeling unwell - Consumes carrots for vision health, but experiences gastrointestinal discomfort Review of Systems - Cardiovascular: Reports palpitations last and Tuesday. Denies current palpitations. - Gastrointestinal: Reports gastrointestinal discomfort after consuming carrots. - General: Denies current pain. Physical Exam - Cardiovascular: Blood pressure normal - Respiratory: No pain reported during breathing Results - Labs: Normal blood count with macrocytosis, mild thrombocytosis, normal electrolytes, creatinine 1.05, elevated blood glucose at 101, normal hemoglobin A1c, normal liver function, LDL cholesterol 126, normal B12, folic acid, and thyroid levels - Tests: Negative ultrasound for psuria, negative breast ultrasound, negative urine test, negative Hepatitis B test Plan Patient was informed and verbally consented to the use of an ambient scribe for clinic note documentation during this visit. 1. Hypertension The patient is currently managed on chlorothalidone, losartan, and metoprolol. Blood pressure is monitored regularly, and the patient is advised to maintain adequate hydration due to the diuretic effect of chlorothalidone. 2. Hypercholesterolemia The patient's LDL cholesterol is currently 126, with a management goal of less than 130. Dietary modifications and regular monitoring are recommended to ma intain cholesterol levels within target range. 3. Elevated Blood Glucose The patient exhibits a fasting blood glucose level of 101, which is slightly elevated. Continued dietary counseling and exercise are advised to manage blood glucose levels. Discussion Notes During the visit, we discussed the management of hypertension with chlorothalidone, losartan, and metoprolol, emphasizing the importance of hydration due to the diuretic effect of chlorothalidone. We reviewed the patient's cholesterol levels, setting a goal for LDL cholesterol to remain below 130, and advised dietary modifications. For elevated blood glucose, we recommended continued dietary counseling and exercise. Patient Instructions - Continue taking chlorothalidone, losartan, and metoprolol as prescribed. - Maintain adequate hydration, especially due to chlorothalidone. - Follow dietary recommendations to manage cholesterol and blood glucose levels. - Engage in regular physical activity as advised. Medications: Refilled metoprolol succinate ER 100 mg PO DAILY 90 tabs 3RF 90 days I10 - Essential (primary) hypertension Coding Level of Care Code Est Pt Level 4 (05152) Complex EM visit Add On G2211 Diagnoses Essential hypertension I10 Hypertension type: essential hypertension Hypercholesterolemia E78.00 Impaired glucose tolerance R73.02 Bipolar disorder, current episode mixed, mild F31.61 Active/Remission status: currently active Current bipolar episode type: mixed Current episode severity: mild Hepatic steatosis K76.0
--- OUTSIDE RECORDS SUMMARY | 2025-01-16 18:19 | XMS_ITS | Patient Health Record ---
Demographics Address [address] [place] [address] Mobile Preferred Language en Marital Status Unknown Jewish Affiliation Unknown Race Ethnic Group or Author Organization [facility] Address [address] [place] [address] Care Team Providers Care Vice President For Instruction Name Role Phone Vipul Shahid MD Primary Care Provider Juan Clifford [phone] Allergies No Known Allergies Reason For Referral [...] Problem Screening for malignant neoplasm of colon (472639190) Encounter for screening for malignant neoplasm of colon (Z12.11) Active confirmed Problem Diverticular disease of colon (399328242) Diverticulosis of large intestine without perforation or abscess without bleeding (K57.30) Active confirmed Problem Long-term current use of aspirin (401671666242769 ) Aspirin long-term use (Z79.82) Active confirmed Encounters Encounter Location Date Provider Diagnosis [facility] [place] [address] [place] [phone] 04/02/2024 Juan Gloria Colon cancer linda brown [...] Date MEDICARE OF [place] [address] [place] [address] [id number] AGUSTIN QUINTANA Self - patient is the insured MEDICAID OF [facility] [address] [place] [address] [id number] AGUSTIN QUINTANA Self - patient is the insured Medical (General) History Medical History History ICD Code Hypertension Denies ND,DM,CVA,Lung disease,renal dise ase Anxiety/Depression Asthma- Glaucoma- 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 Mancia Surgical History Surgery Date(Month/Year) lumpectomy, right breast--benign
--- OUTSIDE RECORDS SUMMARY | 2025-01-16 18:19 | XMS_ITS | Patient Health Record ---
Author Organization [facility] [place] Address [address] [place] [address] Care Team Providers Care Radiation Oncology Manager Name Role Phone Vipul Shahid Primary Care Provider Arin Carver Unavailable [phone] Allergies No Known Allergies Reason For Referral No Information Medications Medication SIG (Take, Route, Frequency, Duration) Notes Start Date End Date Status -81 Active Metoprolol Succinate 100 MG 1 capsule [...] atherosclerosis of arteries of lower limbs (disorder) ([id number] ) Unspecified atherosclerosis of tlingit & ha[place] arteries of extremities, bilateral legs (I70.203) Active confirmed Encounters Encounter Location Date Provider Diagnosis [facility] [address] 05/08/2024 Arin Angel [facility] [address] 12/06/2024 Arin Angel Plan Of Treatment Pending Test Test Name Order Date 90297-UIVK SKIN LESIONS, OVER 4 02/10/20 22 65856-JRXE SKIN LESIONS, 2 TO 4 08/11/19 23 57429-PYAY SKIN LESIONS, 2 TO 4 04/22/20 20 97641-AAJM SKIN LESIONS, 2 TO 4 08/27/19 21 39203-PYXF SKIN LESIONS, 2 TO 4 11/26/19 21 51807-XHHV SKIN LESIONS, 2 TO 4 02/28/20 21 [id number]-ZEJETWQJ OF HEMATOMA/FLUID 023 Next Appt Details Provider Name:Arin rodriguez, 02/01/2025 11:15:00 AM, [address] [facility] [address], [place], [address], Insurance Providers Payer Name Payer Address Payer Phone Subscriber Number Group Number Insured Name Patient Relationship to Insured Coverage Start Date Coverage End Date Medicare National [employer]t [employer] [address] [place] [address] [id number] Jennifer Avelar Self - patient is the insured Medical (General) History Medical History History ICD Code Anxiety CAD (Cholesterol) Cataracts Depression Diverticulosis Glaucoma High blood pressure Macular degeneration Chicken pox Surgical History Surgery Date(Month/Year) Breast Surgery right ten years ago
== END 2025-01-16 17:09 | disposition home or self-care (01) ==
LOC: HO.HMCH 15:23
PROVIDERS: PCP Internal Medicine; Visit Provider Internal Medicine
DX: I10 Essential (primary) hypertension (principal); E78.00 Pure hypercholesterolemia, unspecified; R73.02 Impaired glucose tolerance (oral); F31.61 Bipolar disorder, current episode mixed, mild; K76.0 Fatty (change of) liver, not elsewhere classified

== ENCOUNTER → 2025-01-16 15:23 | Outpatient (BNVA) | payer MEDICARE, MEDICAID, SELFPAY | PROVIDERS: PCP Internal Medicine; Visit Provider Internal Medicine | DX: I10 Essential (primary) hypertension (principal); E78.00 Pure hypercholesterolemia, unspecified; R73.02 Impaired glucose tolerance (oral); F31.61 Bipolar disorder, current episode mixed, mild; K76.0 Fatty (change of) liver, not elsewhere classified | CPT/HCPCS: 99212 ==

== ENCOUNTER 2025-02-19 11:42 | Emergency (ER) | payer MEDICARE, MEDICAID, SELFPAY ==
--- OUTSIDE RECORDS SUMMARY | 2024-04-02 06:40 | XMS_ITS ---
Demographics Address [address] [place] [address] Mobile Preferred Language en Marital Status Unknown Moravian Affiliation Unknown Race Ethnic Group or Author Organization [facility] Address [address] [place] [address] Care Team Providers Care Customer Experience Associate Name Role Phone Vipul Shahid MD Primary Care Provider Juan Clifford [phone] REASON FOR VISIT screening Problems Problem Type SNOMED Code ICD Code Onset Dates Problem Status W/U Status Risk Notes Problem Diverticular disease of colon (471098541) Diverticulosis of large intestine without perforation or abscess without bleeding (K57.30) Active confirmed Encounters Encounter Location Date Provider Diagnosis [facility] [place] [address] [place], [place] [phone] 04/02/2024 Juan Gloria Colon cancer scree stephanie [...] Notes * AGUSTIN QUINTANA:[birth year] (74 yo F)Acc No.[id number]:04/02/2024 COLON WITH MAC Patient: Landry ROSSIAGUSTIN NGO Provider: Damián Gloria MD :1950 A ge:73 Y S ex:Female Date:04/02/2024 Address:[address] [place] [address] [address], [place], [place] Pcp:Vipul Shahid MD Subjective: * Chief Complaints: [...] Date: 06/02/2023 Generated for Hyacinth stone/Jono/Richieitting on: 04:25 PM EDT
--- OUTSIDE RECORDS SUMMARY | 2024-05-11 08:15 | XMS_ITS ---
Author Organization [facility] Address [address] [place] [address] Care Team Providers Care Nursery Nurse Name Role Phone Vpiul Shahid Primary Care Provider Arin Carver [phone] REASON FOR VISIT Transfer to Different Provider Encounters Encounter Location Date Provider Diagnosis [address] [address] 05/11/2024 Arin Angel Plan Of Treatment Next Appt Details Provider Name:Arin rodriguez, 04/26/2025 01:15:00 PM, [address] [facility] [address], [place], [address], Progress Notes * Jennifer QUINTANADOB:[birth year] (74 yo F)Acc No.[id number]:05/11/2024 Progress Note Patient: Landry ROSSIJENI Jennifer Provider: Efren Angel DPM :1950 A ge:73 Y S ex:Female Date:05/11/2024 Address:[address] [place] [address], [place] [facility] Pcp:Vipul Shahid Subjective: * Chief Complaints: * [...] 0 05/11/2024 Generated for Hyacinth stone/Jono/Rogelio on: 1 04:25 PM EDT
--- OUTSIDE RECORDS SUMMARY | 2024-12-10 09:30 | XMS_ITS ---
Author Organization [facility] Address [address] [place] [address] Care Team Providers Care Tricot Knitting Machine Operator Name Role Phone Vipul Shahid Primary Care Provider Arin Carver [phone] Encounters Encounter Location Date Provider Diagnosis [address] [address] 12/10/2024 Arin Angel Plan Of Treatment Next Appt Details Provider Name:Arin rodriguez, 04/26/2025 01:15:00 PM, [address] [place], Suite [facility], [place], [address], Progress Notes * Jennifer QUINTANADOB:[birth year] (74 yo F)Acc No.[id number]:12/10/2024 Progress Note Patient: Lnadry ROSSIJENI Jennifer Provider: Efren Angel DPM :1950 A ge:74 Y S ex:Female Date:12/10/2024 Address:[address] [place] [address], [facility] Pcp:Vipul Shahid Subjective: * Chief Complaints: * [...] 12/10/2024 Generated for Hyacinth Suarezg/Rogelio on: 1 04:26 PM EDT
--- OUTSIDE RECORDS SUMMARY | 2025-02-01 07:15 | XMS_ITS ---
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 Name Role Phone Vipul Shahid Primary Care Provider Arin Carver [phone] Dinero Encounters Encounter Location Date Provider Diagnosis [address] [address] 02/01/2025 Arin Angel Plan Of Treatment Next Appt Details Provider Name:Arin rodriguez, 04/26/2025 01:15:00 PM, [address] [address], [place], [address], Progress Notes * Jennifer QUINTANADOB:[birth year] (74 yo F)Acc No.[id number]:02/01/2025 Progress Note Patient: Landry ROSSIJENI Jennifer Provider: Efren Angel DPM :1950 A ge:74 Y S ex:Female Date:02/01/2025 Address:[address] [place] [address], [id number] Pcp:Vipul Shahid Subjective: * Chief Complaints: * [...] 02/01/2025 Generated for Hyacinth stone/Jono/Rogelio on: 1 04:25 PM EDT
--- NOTE | ~2025-02-19 | CT_ITS ---
EXAMINATION: CT HEAD WITHOUT IV CONTRAST HISTORY: Bilateral frontal headache, gradual onset, 10 R/. TECHNIQUE: Unenhanced helical CT of the head was performed per standard departmental protocol. Coronal and sagittal reformats of the head were also evaluated. One or more of the following techniques was used for dose reduction: Automated exposure control, adjustment of the mA and/or kV according to patient size, use of iterative reconstruction technique. DLP: 912 mGy-cm COMPARISON: Comparison is made with the prior examination dated 10/26/2016. FINDINGS: BRAIN: The brain parenchyma is unremarkable. There is normal bowling/white differentiation. The ventricular system is normal in size and configuration. There is no mass effect or midline shift. No intra- or extra-axial fluid collections are identified. SINUSES: The visualized paranasal sinuses are clear. The mastoid air cells and middle ear cavities are well pneumatized. ORBITS: The visualized orbits are unremarkable. BONES/SOFT TISSUES: The extracranial soft tissues are unremarkable. The calvarium is intact. No suspicious lytic or sclerotic lesions. CT/CT head/brain wo IV con IMPRESSION: No acute intracranial abnormality. Electronically signed by: Juan Nunes MD 02/19/2025 02:46 PM EDT
[2025-02-19 12:08] VITALS: BP 170/70; PULSE 80; O2SAT 95
--- NOTE | 2025-02-19 12:46 | ECG_ITS ---
Test Reason : HYPERTENSION Blood Pressure : */* mmHG Vent. Rate : 56 BPM Atrial Rate : 56 BPM P-R Int : 164 ms QRS Dur : 90 ms QT Int : 418 ms P-R-T Axes : 36 -11 41 degrees QTcB Int : 403 ms Sinus bradycardia Otherwise normal ECG When compared with ECG of 29-Aug-2024 13:14, No significant change was found Referred By: Rene Canut Electronically Signed By: Carlos Smith
[2025-02-19 12:48] VITALS: BP 142/85; PULSE 61; RESP 18; O2SAT 93; BMI 35.0
--- NOTE | 2025-02-19 13:03 | ED.HA ---
HPI - Headache General Chief Complaint: Headache Stated Complaint: ROBERTSON,BP 186/122,NO RELIEF W/MEDS Time Seen by Provider: 02/19/25 13:01 Source: patient Mode of arrival: ambulatory Limitations: language barrier ( 1st language is Venezuelan and speaks Maltese , [facility] educational sign language interpreter was used, the patient switched between Venezuelan and Maltese when answering questions) History of Present Illness ED Provider: Dr. Rene Cantu HPI Narrative: 74-year-old female with a history of essential thrombocytosis with no history of thrombosis, hypercalcemia, renal insufficiency, diverticulitis, bipolar disorder, hypercholesterolemia, hypertension, osteopenia, asthma, COPD, who presents emergency department for evaluation of headache, elevated blood pressures and difficulty with word finding. Patient states that when she woke up this morning at 04:00 hours with a my headache which gradually became severe at 7/10. She points to the frontal part of her head when asked to localize the pain. She describes the pain as ?discomfort which is constant. Headache was initially associated with dizziness and felt like the burris were moving-this has. She had associated nausea with no vomiting. Patient also states she was having difficulty with word finding. She checked her blood pressure at home and was 192/107. She states she took her blood pressure medications at home prior to coming to the emergency department. Blood pressure is now 145/82 Patient does get headaches but she states this headache is more persistent and severe than her usual headaches. She drank some coffee with milk but did not take any medications for her headache. She states she is feeling fatigued and tired. Patient states that on 02/16/2025 (3 days prior) she did have visual hallucinations of children that were talking to her. She states that 1988 she did have visual hallucination but none since then. She does have a history of bipolar disorder. She denied fever, chills, cough. She states she occasionally gets chest pain and shortness of breath which attributes to her COPD. She had nausea but no vomiting or diarrhea. She has had dysuria with no frequency urgency. She denies tobacco, alcohol and drug use. Related Data Home Medications ?Medication ?Instructions ?Recorded ?Confirmed ascorbate calcium (vitamin C) 500 500 mg PO DAILY 03/03/20 02/11/25 mg tablet clonazepam 1 mg tablet (Klonopin) 1 mg PO DAILY 03/03/20 02/11/25 latanoprost 0.005 % eye drops 1 drp ophthalmic (eye) DAILY 03/03/20 02/11/25 multivitamin 1 tab PO DAILY 03/03/20 02/11/25 olanzapine 10 mg tablet (Zyprexa) 5 mg PO DAILY 03/03/20 02/11/25 omega-3 fatty acids 1,000 mg 1,000 mg PO DAILY 03/03/20 02/11/25 capsule (Fish Oil Concentrate) timolol maleate 0.5 % eye drops 1 drp ophthalmic (eye) BID 02/04/22 02/11/25 (Timoptic) vit C 250 mg-vit E 90 mg-zinc 40 1 tab PO BID 11/27/24 02/11/25 mg-copper 1 qe-mhjftg-uftzdt capsule (PreserVision AREDS-2) Previous Rx's ?Medication ?Instructions ?Recorded albuterol sulfate 90 mcg/actuation 2 puff inhalation Q6H PRN 06/01/23 aerosol inhaler (Ventolin HFA) shortness of breath or wheezing #8.5 grams hydrocortisone 2.5 % topical cream 1 appl CO BID-QID PRN hemorrhoids 03/14/24 with perineal applicator #30 grams (Proctosol HC) polyethylene glycol 3350 17 gram 17 g PO DAILY #30 ea 06/19/24 oral powder packet (Miralax) aspirin 81 mg chewable tablet 81 mg PO DAILY #90 tabs 08/20/24 losartan 100 mg tablet 100 mg PO DAILY #90 tabs 11/01/24 hydroxyurea 500 mg capsule 500 mg PO DAILY #90 caps 11/28/24 fluticasone propionate 50 2 spray intranasal DAILY #16 grams 12/16/24 mcg/actuation nasal spray,suspension (Flonase Allergy Relief) docusate sodium 100 mg capsule 100 mg PO BID #180 caps 12/20/24 metoprolol succinate 100 mg 100 mg PO DAILY 90 days #90 tabs 01/16/25 tablet,extended release 24 hr chlorthalidone 25 mg tablet 25 mg PO DAILY #90 tabs 01/20/25 Allergies Allergy/AdvReac Type Severity Reaction Status Date / Time fluoxetine (Prozac) Allergy Unknown Unknown Verified 02/19/25 12:52 hydralazine Allergy Unknown Unknown Verified 02/19/25 12:52 lisinopril Allergy Unknown Unknown Verified 02/19/25 12:52 lithium Allergy Unknown Unknown Verified 02/19/25 12:52 tizanidine Allergy Unknown Unknown Verified 02/19/25 12:52 clonidine AdvReac Intermediate dry mouth Verified 02/19/25 12:52 hydrochlorothiazide AdvReac Intermediate hyponatremi Verified 02/19/25 12:52 a nifedipine AdvReac Intermediate Headache Verified 02/19/25 12:52 amlodipine AdvReac Unknown urinary Verified 02/19/25 12:52 retendtion Review of Systems Review of Systems: Yes all other systems are reviewed and are negative [facility] Past Medical History [facility] Narrative: Social history: She denies tobacco, alcohol and drug use. She lives with her who is here in the emergency department Medical History Onychomycosis Finger pain, left Stye Ringing in ears Epidermal inclusion cyst Abdominal wall abscess Abscess Age-related osteoporosis without current pathological fracture Hypercalcemia Breast cancer screening by mammogram Vaginal cyst Renal insufficiency Macular degeneration Diverticulitis Glaucoma Bipolar disorder Hypercholesterolemia Obesity (BMI 30-39.9) Hypertension Osteopenia Nontoxic multinodular goiter Asthma Surgical History History of breast biopsy H/O elbow surgery Family History Family History Father CVD (cardiovascular disease) Myocardial infarction Mother No problems noted. Maternal Aunt Uterine cancer Family/Other Breast cancer Social History Social History Household Members: Children Housing: Apartment Are you a primary professional healthcare representative to a significant other at home: No Do you presently have visiting nurse or other home services: No Alcohol intake: never Patient Tobacco Use Status: Never used Tobacco Tobacco use type: Cigarette e-Cigarette/Vaping Use: Never Used Second Hand Smoke Exposure: No Advance Directives: No Advance Directives Information Provided: Yes service: No Current occupational status: retired Current occupational exposures/hazards: No Cognitive needs: No Hearing needs: No Vision needs: Yes Physical Exam Vital Signs: Vital Signs: Last Vital Signs Temp 97.6 F 02/19/25 17:20 Pulse 67 02/19/25 17:20 Resp 18 02/19/25 17:20 BP 139/89 02/19/25 17:20 Pulse Ox 93 02/19/25 17:20 O2 Del Method Room Air 02/19/25 17:20 BMI result Body Mass Index 35.0 Vital signs revealed slight elevation in her blood pressure of 142/85 otherwise Exam: General: Awake, alert in no distress Head: Normocephalic, atraumatic, no tenderness palpation over temporal artery EENT: PERRL, sclera and conjunctiva are normal, mouth with no erythema or exudates Neck: Supple, no adenopathy Lung: breath sounds symmetric, no wheezing, no rales and no rhonchi Chest: symmetric movement, nontender Heart: regular rate and rhythm, normal S1, S2 no murmurs or rubs Abdomen: soft, non-tender, nondistended, normal bowel sounds Back: no vertebral tenderness, no CVAT Extremities: no deformities, moves all extremities symmetrically, no edema Neuro: General: ?Awake, alert, oriented, normal speech Cranial nerves: ?Cranial nerves 2 - 12?intact Strength: ?Moves all extremities symmetrically, strength 5/5 Cerebellar: ?Good rxwsdq-sj-saem-to-finger, good rapid finger movement, normal heel to calderon Psych: Pleasant, cooperative NIH Stroke Scale Internal: Initial- Upon Arrival Level of Consciousness: Alert Level of Consciousness Questions: Answers both questions correctly Level of Consciousness Commands: Performs both tasks correctly Best Gaze: Normal Visual: No visual loss Facial Palsy: Normal Motor Arm (Right): No drift Motor Arm (Left): No drift Motor Leg (Right): No drift Motor Leg (Left): No drift Limb Ataxia: Absent Sensory: Normal Best Language: No aphasia Dysarthia: Normal Extinction and Inattention: No abnormality Score: 0 Medications Administered Discontinued Medications Generic Name Dose Route Start Last Admin Trade Name Freq PRN Reason Stop Dose Admin Acetaminophen 975 mg 02/19/25 13:34 02/19/25 16:37 Acetaminophen 325 Mg Tablet PO 02/19/25 13:35 Not Given ONCE STA Acetaminophen 975 mg 02/19/25 16:40 02/19/25 17:11 Acetaminophen 325 Mg Tablet PO 02/19/25 16:41 975 mg ONCE STA Administration Medical Decision Making Medical Decision Making MDM Narrative: 74-year-old female with a history of essential thrombocytosis with no history of thrombosis, hypercalcemia, renal insufficiency, diverticulitis, bipolar disorder, hypercholesterolemia, hypertension, osteopenia, asthma, COPD, who presents emergency department for evaluation of headache, elevated blood pressures and difficulty with word finding. Patient states that when she woke up this morning at 04:00 hours with a my headache which gradually became severe at 7/10. She points to the frontal part of her head when asked to localize the pain. She describes the pain as ?discomfort which is constant. Headache was initially associated with dizziness and felt like the burris were moving-this has. She had associated nausea with no vomiting. Patient also states she was having difficulty with word finding. She checked her blood pressure at home and was 192/107. She states she took her blood pressure medications at home prior to coming to the emergency department. Blood pressure is now 145/82 Patient does get headaches but she states this headache is more persistent and severe than her usual headaches. She drank some coffee with milk but did not take any medications for her headache. She states she is feeling fatigued and tired. Patient states that on 02/16/2025 (3 days prior) she did have visual hallucinations of children that were talking to her. She states that 1988 she did have visual hallucination but none since then. She does have a history of bipolar disorder. Vital signs were normal. Exam was unremarkable with a normal neurologic exam. NIH stroke scale was 0. Differential diagnosis: ?Includes but is not limited to stroke, intracranial bleed, migraine headache, giant cell arteritis, myocardial infarction, myocardial ischemia anemia, electrolyte abnormalities Course: My independent interpretation patient's laboratory evaluation is as follows: Elevated MCV of 102-chronic, no 0.1 and 41.1. Platelet count elevated 420,000-chronic consistent with her essential thrombocytosis. CMP was normal. CT scan of the brain revealed no acute abnormalities. The patient's headache improved with oral Tylenol. I did discuss the patient's CT scan results and laboratory evaluations with her and her . The patient was advised to check her blood pressures on Mondays, Wednesdays and Fridays for 2 to 3 weeks and to follow up with her provider to discuss these readings. The patient is currently on 2 blood pressure medications and if she continues to have elevated reading she may need to be on a 3rd blood pressure medication. Patient understood this discussion and was discharged home. Differential Diagnosis Differential Diagnoses: The differential diagnosis associated with the presentation includes (See above) Admission/Observation Consideration of admission/observation: Escalation of care including admission/observation considered (Yes) Lab Data MDM Lab Attestation statement: I reviewed the patient's lab results. 02/19/25 13:17 02/19/25 13:17 Labs: Lab Results 02/19/25 Range/Units 13:17 WBC 9.1 (4.8-10.8) X10*3/uL RBC 4.02 L (4.20-5.50) X10*6/uL Hgb 14.1 (12.0-16.0) g/dl Hct 41.1 (37.0-47.0) % MCV 102.2 H (80.0-98.0) fL MCH 35.1 H (27.0-33.0) pg MCHC 34.3 (31.0-35.0) g/dl RDW 14.5 (11.0-16.0) % Plt Count 420 H (160-400) X10*3/uL MPV 9.4 (9.4-12.3) fL Immature Gran % (Auto) 0.2 (0.0-0.4) % Neut % (Auto) 70.0 (45-73) % Lymph % (Auto) 21.1 (20-40) % Norman % (Auto) 8.1 (2-11) % Eos % (Auto) 0.3 (0-4) % Baso % (Auto) 0.3 (0-2) % Lymph # (Auto) 1.9 (1.2-4.9) X10*3/uL Norman # (Auto) 0.7 (0.1-1.2) X10*3/uL Eos # (Auto) 0.0 (0.0-0.4) X10*3/uL Baso # (Auto) 0.0 (0.0-0.2) X10*3/uL Abs Immat Gran (auto) 0.02 (0.00-0.03) X10*3/uL Absolute Neuts (auto) 6.4 (2.0-8.3) x10*3/uL Absolute Nucleated RBC 0.000 (0.0-0.012) X10*3/uL Nucleated RBC % (auto) 0.0 (0.0-0.2) /100WBC ESR 23 H (0-20) MM/HR PT 11.9 (10.9-12.4) SEC INR 1.0 (0.9-1.1) Sodium 135 (135-145) mmol/L Potassium 4.4 (3.3-5.1) mmol/L Chloride 104 (96-108) mmol/L Carbon Dioxide 23 (22-29) mmol/L Anion Gap 12 (12-20) BUN 24 H (9-16) mg/dL Creatinine 1.05 (0.5-1.4) mg/dL Estim Creat Clear Calc 50.7 Estimated GFR 51 Random Glucose 111 (60-115) mg/dL Calcium 9.4 (8.4-10.2) mg/dL Magnesium 2.0 (1.6-2.6) mg/dL Total Bilirubin 0.4 (0.0-1.0) mg/dL AST 36 H (5-31) U/L ALT 29 (0-31) U/L Alkaline Phosphatase 81 (39-117) U/L Troponin I High Sens < 2.7 (<3.5-17.0) ng/L C-Reactive Protein 0.15 (< or = 0.50) mg/dL Total Protein 7.6 (6.5-8.0) g/dL Albumin 3.7 (3.5-5.0) g/dL Independent Interpretation Interpretation: My independent interpretation patient's 12 EKG done on 02/19/2025 at 13:28 hours is as follows: Sinus bradycardia with a rate of 56, normal CO interval, QRS duration QTC interval, no ST depression inverted T-waves in V1 and V3, no PACs, no PVCs. Compared to EKG dated 08/29/2024, T-wave abnormalities were present, no acute changes. Radiology Impression Discussion of test interpretation with radiology: I have reviewed the radiologist's reading. Radiologist Impression: CT head/brain wo IV con IMPRESSION: No acute intracranial abnormality. Electronically signed by: Juan Nunes MD 02/19/2025 02:46 PM EDT Independent Historian Clinical information obtained from an independent historian. History obtained from or confirmed by: Spouse Chronic Conditions Patient?s care impacted by: Diabetes, Hypertension and Other (Hypercholesterolemia, asthma) Discharge Plan Discharge Clinical Impression: Headache, Essential (primary) hypertension Patient Disposition: Home, Self-Care Additional Instructions: CT scan of the head did not reveal any abnormalities which is reassuring Your EKG-electrical picture of your heart was normal Your blood work was unremarkable. Take extra-strength Tylenol 500 mg pills, 2 pills every 6 hours as needed for headache or pain High blood pressure instructions: The reason to check your blood pressure at home is to give your provider an idea of what your blood pressure does when you are not in the provider's office. Take your blood pressure in the mornings, Mondays , Wednesdays and Fridays and then write down for the next 2 weeks. Make sure you only check your blood pressure in the mornings and do not repeat your blood pressure readings even if they are high. Discuss these readings with your provider at your next visit. If your provider thinks that your blood pressures are too high, then they may continue to follow your blood pressures for another 2-4 weeks without change in your medications or they may either increase your high blood pressure medication or start you on a 2nd or 3rd high blood pressure medication. If your provider changes your blood pressure medications, it will take anywhere from 2-6 week before these medications work to reduce your blood pressure. The goal is to get your blood pressure is close to normal over the next several months and over the rest of your life. Follow-up with your provider to discuss your blood pressure readings in 2-3 weeks Please return to the emergency department if your symptoms get worse or if you develop any new symptoms that are concerning to you. Prescriptions: No Action losartan 100 mg tablet 100 mg PO DAILY Qty: 90 3RF hydroxyurea 500 mg Capsule 500 mg PO DAILY Qty: 90 3RF fluticasone propionate [Flonase Allergy Relief] 50 mcg/actuation spray,suspension 2 spray intranasal DAILY Qty: 16 3RF Rx Instructions: administer into each nostril docusate sodium 100 mg capsule 100 mg PO BID Qty: 180 3RF chlorthalidone 25 mg tablet 25 mg PO DAILY Qty: 90 1RF aspirin 81 mg Tablet,Chewable 81 mg PO DAILY Qty: 90 3RF ascorbate calcium (vitamin C) 500 mg tablet 500 mg PO DAILY multivitamin Tablet 1 tab PO DAILY omega-3 fatty acids [Fish Oil Concentrate] 1,000 mg capsule 1,000 mg PO DAILY latanoprost 0.005 % drops 1 drp ophthalmic (eye) DAILY clonazepam [Klonopin] 1 mg tablet 1 mg PO DAILY olanzapine [Zyprexa] 10 mg tablet 5 mg PO DAILY PreserVision AREDS-2 250-90-40-1 mg capsule 1 tab PO BID Rx Instructions: Dr. Pham timolol maleate [Timoptic] 0.5 % drops 1 drp ophthalmic (eye) BID albuterol sulfate [Ventolin HFA] 90 mcg/actuation HFA aerosol inhaler 2 puff inhalation Q6H PRN (Reason: shortness of breath or wheezing) Qty: 8.5 0RF hydrocortisone [Proctosol HC] 2.5 % cream with perineal applicator 1 appl CO BID-QID PRN (Reason: hemorrhoids) Qty: 30 1RF polyethylene glycol 3350 [Miralax] 17 gram powder in packet 17 g PO DAILY Qty: 30 8RF metoprolol succinate 100 mg tablet extended release 24 hr 100 mg PO DAILY 90 Days Qty: 90 3RF Interventions: ED Discharge Assessment Last Done: 02/19/25 17:20 Discharge Date/Time: 02/19/25 17:21 Print Language: Venezuelan
[2025-02-19 13:23] LABS: MANUAL DIFF FLAG NO
[2025-02-19 13:29] LABS: Hematocrit 41.1 % (37.0-47.0); Hemoglobin 14.1 g/dl (12.0-16.0); Imm Gran Abs Auto 0.02 X10*3/uL (0.00-0.03); Imm Gran Pct Auto 0.2 % (0.0-0.4); Lymphocytes Absolute Auto 1.9 X10*3/uL (1.2-4.9); Mean Corpuscular HGB Conc 34.3 g/dl (31.0-35.0); Mean Corpuscular Hemoglobin 35.1 pg (27.0-33.0); Mean Corpuscular Volume 102.2 fL (80.0-98.0); NRBC Abs Auto 0.000 X10*3/uL (0.0-0.012); NRBC Pct Auto 0.0 /100WBC (0.0-0.2); Platelet Count 420 X10*3/uL (160-400); Red Blood Count 4.02 X10*6/uL (4.20-5.50); White Blood Count 9.1 X10*3/uL (4.8-10.8)
[2025-02-19 13:33] LABS: INTERNATIONAL NORM RATIO 1.0 (0.9-1.1); Prothrombin Time 11.9 SEC (10.9-12.4)
[2025-02-19 13:47] LABS: Alanine Aminotransferase 29 U/L (0-31); Albumin Level 3.7 g/dL (3.5-5.0); Alkaline Phosphatase 81 U/L (39-117); Anion Gap 12 (12-20); Aspartate Amino Transferase 36 U/L (5-31); Blood Urea Nitrogen 24 mg/dL (9-16); Calcium 9.4 mg/dL (8.4-10.2); Carbon Dioxide 23 mmol/L (22-29); Chloride 104 mmol/L (96-108); Creatinine Clr Calc Pharmacy 50.7; Estimated Glomerular Filt Rate 51; Magnesium 2.0 mg/dL (1.6-2.6); Potassium 4.4 mmol/L (3.3-5.1); Sodium 135 mmol/L (135-145); Total Protein 7.6 g/dL (6.5-8.0); Troponin-I High Sensitivity < 2.7 ng/L (<3.5-17.0)
[2025-02-19 14:36] VITALS: BP 128/79; PULSE 58; RESP 18; TEMP 36.7; O2SAT 97
[2025-02-19 15:19] VITALS: BP 128/69; PULSE 56; RESP 21; O2SAT 95
--- NOTE | 2025-02-19 15:19 | PC.NURSE ---
Pt reports that her headache is gone, refusing tylenol at this time. Blood pressure WNL at this time.
--- OUTSIDE RECORDS SUMMARY | 2025-02-19 16:26 | XMS_ITS | Patient Health Record ---
Demographics Address 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 the day before the procedure; Duration: 1 day 12/24/2023 Active Dulcolax (colon prep) 5 MG take at 3:00 p.m and 7:00p.m. Orally two tablets twice a day for one day; Duration: 1 day 12/24/2023 Active Fish Oil 1000 MG 1 capsule Orally Onc e a day Active Docusate Sodium 100 MG TAKE ONE CAPSULE TWICE A DAY Oral; Duration: 30 Active Vitamin C 500 MG Orally Act milla Aspirin Low Dose 81 MG TAKE 1 TABLET BY MOUTH EVERY DAY Oral; Duration: 90 Active OLANZapine 10 MG TAKE 1 TABLET AT BED TIME Oral; Duration: 30 Active clonazePAM 2 MG TAKE 1 TABLET AT BED TIME Oral; Duration: 30 Active Losartan Potassium 50 MG TAKE 1 TABLET B Y MOUTH DAILY TO REPLACE DIOVAN Oral; Duration: 90 Active Vitamin D Active Hydroxyurea 500 MG Oral; Duration: 90 Active Problems Problem Type SNOMED Code ICD Code Onset Dates Problem Status W/U Status Risk Notes Problem Screening for malignant neoplasm of colon (231445233) Encounter for screening for malignant neoplasm of colon (Z12.11) Active confirmed Problem Diverticular disease of colon (947373945) Diverticulosis of large intestine without perforation or abscess without bleeding (K57.30) Active confirmed Problem Long-term current use of aspirin (267299454749901 ) Aspirin long-term use (Z79.82) Active confirmed Encounters Encounter Location Date Provider Diagnosis [facility] Outpatient [address], [place] [id number] 04/02/2024 Juan Gloria Colon cancer yumie stephanie Z12.11 ; Diverticulosis of large intestine [...] MEDICARE OF [place] [address] [place] [address] [id number] AGUSTIN QUINTANA Self - patient is the insured MEDICAID OF [facility] [address] [place] [address] [id number] AGUSTIN QUINTANA Self - patient is the insured Medical (General) History Medical History History ICD Code Hypertension Denies ME,DM,CVA,Lung disease,renal dise ase Anxiety/Depression Asthma- Glaucoma- 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 Mancia Surgical History Surgery Date(Month/Year) lumpectomy, right breast--benign
--- OUTSIDE RECORDS SUMMARY | 2025-02-19 16:26 | XMS_ITS | Patient Health Record ---
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 Name Role Phone Vipul Shahid Primary Care Provider Arin Carver Unavailable [phone] Allergies No Known Allergies Reason For Referral No Information Medications Medication SIG (Take, Route, Frequency, Duration) Notes Start Date End Date Status Metoprolol Succinate 100 MG 1 capsule Once a day Active Aspir-81 Active OLANZapine 5 MG 1 tablet Orally Once a day; Duration: 30 days Active clonazePAM 0.5 MG 1 tablet at bedtime Orally Once a day Active Docusate Sodium 100 MG 1 capsule as need ed Orally Once a day; Duration: 30 day(s) Active Losartan Potassium 100 MG 1 tablet Orally Once a day; Duration: 30 day(s) Active Vitamin D Active Ciclopirox Olamine 0.77 % 1 application to affected area Externally Twice a day to effected areas on feet; Duration: 30 days Active Doxycycline 100mg Not-Taki ng Calcium 600-400 MG-UNIT 1 tablet with a meal Orally Once a day; Duration: 30 day(s) Not-Taking Immunizations Vaccine Route Administration Date Status Comme nts Influenza Unknown 02/09/2024 Administered COVID-19 Pfizer BioNTech Vaccine Unknown 08/05/2020 Adm inistered COVID-19 Pfizer BioNTech Vaccine Unknown 08/27/2020 Adm inistered Social History Tobacco Use: Social History Observation Description Date Details (start date - stop date) Never Smoker NA - NA Alcohol Screen Question Answer Notes Did you have a drink containing alcohol in the p ast year? No Points 0 Interpretation Negative Tobacco use other than smoking: Question Answer Notes Are you an other tobacco user? No Tobacco Control (Standard) Question Answer Notes Tobacco use: Nonsmoker Additional Findings: Tobacco non-user Current no nsmoker AUDIT-C (Standard) Question Answer Notes Did you have a drink containing alcohol in the p ast year? No Points 0 Interpretation Negative Problems Problem Type SNOMED Code ICD Code Onset Dates Problem Status W/U Status Risk Notes Problem Bilateral atherosclerosis of arteries of lower limbs (disorder) (45518580434776002 ) Unspecified atherosclerosis of [place] arteries of extremities, bilateral legs (I70.203) Active confirmed Problem Bilateral atherosclerosis of arteries of lower limbs (disorder) (07291016807684085 ) Atherosclerosis of [place] artery of both lower extremities, with unspecified presence of clinical manifestation (I70.203) Active confirmed Q7(A), Q8(2B), Q9(1B,2 C) Vital Signs Height 5ft 3in in 01/18/2025 Weight 186 lbs 01/18/2025 BMI 32.94 kg/m2 01/18/2025 Encounters Encounter Location Date [facility] [address] [place] [id number] 01/18/2025 Arin Angel Tinea unguium B35.1 ; Pain in right toe(s) M79.674 ; Pain in left toe(s) M79.675 ; Skin disease L98.9 ; Unspecified atherosclerosis of [place] arteries of extremities, bilateral legs I70.203 ; Xerosis cutis L85.3 and Tinea pedis B35.[address] [address] 05/08/2024 Arin Angel [address] [address] 12/06/2024 Arin Angel Assessments Encounter Date Diagnosis (ICD Code) Assessment Notes Treatment Notes Treatment Clinical Notes Section Notes 01/18/2025 Tinea unguium (ICD-10 - B35.1) 01/18/2025 Pain in right toe(s) (ICD-10 - M79.674) 01/18/2025 Pain in left toe(s) (ICD-10 - M79.675) 01/18/2025 Skin disease (ICD-10 - L98.9) 01/18/2025 Unspecified atherosclerosis of [place] arteries of extremities, bilateral legs (ICD-10 - I70.203) 01/18/2025 Xerosis cutis (ICD-10 - L85.3) 01/18/2025 Tinea pedis (ICD-10 - B35.3) Plan Of Treatment Pending Test Test Name Order Date 25906-WFWV SKIN LESIONS, OVER 4 02/10/20 22 81659-IAAG SKIN LESIONS, 2 TO 4 08/11/19 23 17739-GSLM SKIN LESIONS, 2 TO 4 04/22/20 20 26165-CBSB SKIN LESIONS, 2 TO 4 08/27/19 21 44134-MHFU SKIN LESIONS, 2 TO 4 11/26/19 21 18880-VDJM SKIN LESIONS, 2 TO 4 02/28/20 21 12677-CTQBIGRO OF HEMATOMA/FLUID 023 Next Appt Details Provider Name:Arin rodriguez, 04/26/2025 01:15:00 PM, [address] [facility], [facility] [address], [place], [address], Insurance Providers Payer Name Payer Address Payer Phone Subscriber Number Group Number Insured Name Patient Relationship to Insured Coverage Start Date Coverage End Date Medicare National Govt [facility] [address] [place] [address] [phone] [id number] Jennifer Avelar Self - patient is the insured Medical (General) History Medical History History ICD Code Anxiety CAD (Cholesterol) Cataracts Depression Diverticulosis Glaucoma High blood pressure Macular degeneration Chicken pox Surgical History Surgery Date(Month/Year) Breast Surgery right ten years ago
[2025-02-19 17:20] VITALS: BP 139/89; PULSE 67; RESP 18; TEMP 36.4; O2SAT 93
== END 2025-02-19 17:21 | disposition home or self-care (01) ==
PROVIDERS: Physician Assistant Medical; Emergency Provider Emergency Medicine Emergency Medical Services; PCP Internal Medicine
DX: R51.9 Headache, unspecified (principal); I10 Essential (primary) hypertension; E11.9 Type 2 diabetes mellitus without complications; J45.909 Unspecified asthma, uncomplicated; Z79.899 Other long term (current) drug therapy
CPT/HCPCS: 36415; 70450; 80053; 83735; 84484; 85025; 85610; 85652; 86140; 93005; 99284

== ENCOUNTER → 2025-02-19 12:46 | Outpatient (BNV) | payer MEDICARE, MEDICAID, SELFPAY | PROVIDERS: Emergency Provider Emergency Medicine Emergency Medical Services; PCP Internal Medicine; Visit Provider Internal Medicine Cardiovascular Disease | DX: R00.1 Bradycardia, unspecified (principal) | CPT/HCPCS: 93010 ==

== ENCOUNTER → 2025-02-19 13:21 | Outpatient (BNV) | payer MEDICARE, MEDICAID, SELFPAY | PROVIDERS: Emergency Provider Emergency Medicine Emergency Medical Services; PCP Internal Medicine; Visit Provider Radiology Diagnostic Radiology | DX: R51.9 Headache, unspecified (principal) | CPT/HCPCS: 70450 ==

== ENCOUNTER 2025-03-11 16:32 | Outpatient (AMB) | payer MEDICARE, MEDICAID, SELFPAY ==
--- OUTSIDE RECORDS SUMMARY | 2023-11-22 08:30 | XMS_ITS ---
Author Organization [facility] y[place]ka [place] Address [address] [place] [address] Care Team Providers Care Return To Service Inspector Name Role Phone Vipul Shahid Primary Care Provider Arin Carver Unavailable [phone] William Slade Unavailable [phone] REASON FOR VISIT Painful nail(s) aggrevated by shoes and causing difficulty standing/walking. Medications Medication SIG (Take, Route, Frequency, Duration) Notes Start Date End Date Status Ciclopirox Olamine 0.77 % 1 application to affected area Externally Twice a day to effected areas on feet; Duration: 30 days Active Encounters Encounter Location Date [facility] [address] [address] 11/22/2023 William Slade Tinea unguium B35.1 ; Pain in right toe(s) M79.674 ; Pain in left toe(s) M79.675 ; Skin disease L98.9 ; Unspecified atherosclerosis of [place] arteries of extremities, bilateral legs I70.203 ; Xerosis cutis L85.3 and Tinea pedis B35.3 Assessments Encounter Date Diagnosis (ICD Code) Assessment Notes Treatment Notes Treatment Clinical Notes Section Notes 11/22/2023 Tinea unguium (ICD-10 - B35.1) 11/22/2023 Pain in right toe(s) (ICD-10 - M79.674) 11/22/2023 Pain in left toe(s) (ICD-10 - M79.675) 11/22/2023 Skin disease (ICD-10 - L98.9) 11/22/2023 Unspecified atherosclerosis of [place] arteries of extremities, bilateral legs (ICD-10 - I70.203) 11/22/2023 Xerosis cutis (ICD-10 - L85.3) 11/22/2023 Tinea pedis (ICD-10 - B35.3) Plan Of Treatment Medication Medication Name Sig Start Date Stop Date Notes Ciclopirox Olamine 0.77 % 1 application to affected area Externally Twice a day to effected areas on feet; Duration: 30 days Next Appt Details Follow Up: 3 Months, Reason: Provider Name:Arin rodriguez, 04/26/2025 01:15:00 PM, [address] [facility], [address], [place], [address], Procedure Notes * Category Sub-Category Detail Notes Debride Nail 6-10 Nail debridement Nail debridem ent performed extensively to reduce/remove overall nail length and girth, subungual debris, and necrotic tissue, by manual and electrical means with use of a nail nipper and/or dremel, to more viable healthy nail plate or bed tissue 6-10. Silver nitrate used for any petechial bleeding as necessary. Patient chooses, no pharmaceutical tx (38316) Keratoma Treatment Parring or Cutting o f Benign Hyperkeratotic Lesion(s) 22863 (2-4 Lesions) - The Benign hyperkeratotic lesions, as described above were pared, and/or cut utilizing a sterile #15 blade, tissue nippers, and/or dremel, Q8 Progress Notes * Jennifer QUINTANADOB:[birth year] (74 yo F)Acc No.[id number]:11/22/2023 Progress Note Patient: Jennifer LE Provider: Dionne Bowen DPM :1950 A ge:73 Y S ex:Female Date:11/22/2023 Address:[address] [place] [address], [id number] Pcp:Vipul Shahid Subjective: * Chief Complaints: * 1 . Painful nail(s) aggrevated by shoes and causing difficulty standing/walking.. * HPI: P ainful Nails: Pt States Last PCP Visit: D ate: 0 08/05/2023 S kin problems: Nature: d ryness, itching. Location: B /L , Forefoot, Interspace(s)/Between toe(s).? * ROS: G eneral/Constitutional: Nausea d enies. V omiting d enies. H anay Thirst d enies. L oss appetite d enies. C hills d enies. F atigue d enies.?Fever d enies. N ight Sweats d enies. U nexplained weight loss d enies. U nexplained weight gain d enies. H EENTM: Dentures d enies. D izziness d enies. G lasses/contacts d enies. R etinopathy d enies. B lurred/double vision d enies. T MJ?denies. D ischarge/drainage d enies. I mplants d enies. S ore throat d enies. D ental implants d enies. H kasey of hearing d enies. D ifficulty chewing/swallowing/speaking d enies. N ose bleeds d enies. S ore mouth d enies. ? R espiratory: On Oxygen d enies. P neumonia/pleurisy d enies.?Bronchitis d enies. E mphysema d enies. C oughing d enies. C ough blood?denies. S hortness of breath d enies. W heezing d enies. C ardiovascular: Pacemaker d enies. M BEATER ENGINEER d enies. W PW d enies. C HF d enies. H eart attack d enies. S eptal defect d enies. R apid beat d enies. C hest pain d enies. A trial Fib. d enies. M urmur/Palpitations d enies. G astrointestinal: Hemorrhoids d enies. S tomach/Abdominal pain d enies. D ark blood stool d enies. I rritable bowel d enies. C onstipation d enies. D iarrhea d enies. H ematology: Swelling d enies. C lots d enies. V aricose Veins d enies. B ruising d enies. B leeding problem d enies. G enitourinary: Blood urine d enies. F requent/Painfu/urination/bladder control d enies. K idney stones d enies. I nfection (UTI) d enies. N ephropathy d enies. s ex trans dis (STD) d enies. P rostate d enies. M usculoskeletal: Hammertoes d enies. B unions d enies. B ack Pain d enies. M uscle Cramps/ Resting d enies. M uscle cramps / walking d enies.?Generalized aches and pains d enies. W eakness d enies. I nteg.: Larson d enies. S cars d enies. C orns/calluses?denies. I ngrown nails d enies. P ainful nails d enies. O pen Sores d enies. R ashes d enies. N eurologic: Difficulty sleeping d enies. B rain disorder d enies. N umbness d enies. B alance trouble d enies. C onfusion d enies. F ainting/blackouts d enies. T ingling d enies. T remors d enies. * Medical History: Objective: * Vitals: * Examination: N ails: NAILS are: e longated,overgrown,dystrophic,greater than 3mm thick,discolored and friable with crumbly malodorous subungual debris, with pain on palpation, 1-5 B/L. G eneral Examination: GENERAL APPEARANCE: p leasant, alert, well nourished, well developed, well hydrated, with good attention to hygene/body habitus, and in no acute distress. ORIENTED: p erson,place, and time. N eurological: SENSORY: n eurological exam reveals intact sensorium, pain sensation normal, vibration sensation intact, pinprick sensation is normal in the lower extremities, anesthesia, burning, tingling, B/L. V ascular: DP PULSES (B): 0/4, B/L. PT PULSES (B): 0/4, B/L. TEMPERTURE GRADIENT (C): decreased, cool to cold, proximal to distal, B/L. D ermatologic: SKIN FINDINGS: S kin exam reveals Keratotic lesion(s) located at, Plantar, Heel(s), B/L . O rthopedic: MUSCLE STRENGTH: 5 /5 all groups in a symmetrical fashion , B/L. Assessment: * Assessment: 1. T inea unguium - B35.1 (Primary) 2 . P ain in right toe(s) - M79.674? 3. P ain in left toe(s) - M79.675 4 . S kin disease - L98.9? 5. U nspecified atherosclerosis of [place] arteries of extremities, bilateral legs - I70.203 6 . X erosis cutis - L85.3 7 . T inea pedis - B35.3 Plan: * Treatment: * Procedures: D ebride Nail 6-10: Nail debridement N ail debridement performed extensively to reduce/remove overall nail length and girth, subungual debris, and necrotic tissue, by manual and electrical means with use of a nail nipper and/or dremel, to more viable healthy nail plate or bed tissue 6-10. Silver nitrate used for any petechial bleeding as necessary. Patient chooses, no pharmaceutical tx (59284). K eratoma Treatment: Parring or Cutting of Benign Hyperkeratotic Lesion(s) 1 1056 (2-4 Lesions) - The Benign hyperkeratotic lesions, as described above were pared, and/or cut utilizing a sterile #15 blade, tissue nippers, and/or dremel, Q8. * Procedure Codes: 1 1721 DEBRIDE NAIL, 6 OR MORE, Modifiers: XS , 16803 TRIM SKIN LESIONS, 2 TO 4, Modifiers: Q8 * Follow Up: 3 Months * Images: * The named appointment provid er may or may not be the originator of this progress note, and it is not deemed complete until electronically signed by the appointment provider. Sign off status: Pending * Provider: Dionne Bowen DPM Date: 0 11/22/2023 Generated for Hyacinth stone/Jono/Rogelio on: 05/11/2024 05:15 PM EST History and Physical Notes * HPI (History of Present Illness) Category Sub-Category Detail Notes Category Not es Painful Nails Nature: Pt States Last PCP Visit: Date:: 08/05/2023 Skin problems Nature: dryness, itching Location: B/L , Forefoot, Inte rspace(s)/Between toe(s) Examination Category Sub-Category Detail Notes Category Not es Neurological SENSORY: neurological exa m reveals intact sensorium, pain sensation normal, vibration sensation intact, pinprick sensation is normal in the lower extremities, anesthesia, burning, tingling, B/L Dermatologic SKIN FINDINGS: Skin exam reveal s Keratotic lesion(s) located at, Plantar, Heel(s), B/L Orthopedic MUSCLE STRENGTH: 5/5 all groups in a symmetrical fashion , B/L General Examination GENERAL APPEARANCE: pleasant , alert, well nourished, well developed, well hydrated, with good attention to hygene/body habitus, and in no acute distress ORIENTED: person,place, and ti me Vascular DP PULSES (B): 0/4, B/L PT PULSES (B): 0/4, B/L TEMPERTURE GRADIENT (C): decreased, cool to cold, proximal to distal, B/L Nails NAILS are: elongated,overgr own,dystrophic,greater than 3mm thick,discolored and friable with crumbly malodorous subungual debris, with pain on palpation, 1-5 B/L
--- OUTSIDE RECORDS SUMMARY | 2023-11-25 08:15 | XMS_ITS ---
Author Organization [facility] Address [address] [place] [address] Care Team Providers Care Content Architect Name Role Phone Viupl Shahid Primary Care Provider Arin Carver Unavailable [phone] William Slade [phone] Nguyen Encounters Encounter Location Date Provider Diagnosis [address] [address] 11/25/2023 William Slade Plan Of Treatment Next Appt Details Provider Name:Arin rodriguez, 04/26/2025 01:15:00 PM, [address] [place] [address], [address], Progress Notes * Jennifer QUINTANADOB:[birth year] (74 yo F)Acc No.[id number]:11/25/2023 Progress Note Patient: Landry ROSSIJENI Jennifer Provider: Dionne Bowen DPM :1950 A ge:73 Y S ex:Female Date:11/25/2023 Address:[address] [place] [address], [id number] Pcp:Vipul Shahid Subjective: * Chief Complaints: * [address] Nguyen. * Medical History: Objective: * Vitals: Assessment: Plan: * Treatment: * Images: * The named appointment provid er may or may not be the originator of this progress note, and it is not deemed complete until electronically signed by the appointment provider. Sign off status: Pending * Provider: Dionne Bowen DPM Date: 0 11/25/2023 Generated for Hyacinth stone/Jono/Rogelio on: 05/11/2024 05:16 PM EST
--- OUTSIDE RECORDS SUMMARY | 2024-04-02 05:40 | XMS_ITS ---
Demographics Address [address] [place] [address] Mobile Preferred Language en Marital Status Unknown Mandaeism Affiliation Unknown Race Ethnic Group or Author Organization [facility] Address [address] [place] [address] Care Team Providers Care Slipcover Cutter Name Role Phone Vipul Shahid MD Primary Care Provider Juan Clifford [phone] REASON FOR VISIT screening Problems Problem Type SNOMED Code ICD Code Onset Dates Problem Status W/U Status Risk Notes Problem Diverticular disease of colon (563960837) Diverticulosis of large intestine without perforation or abscess without bleeding (K57.30) Active confirmed Encounters Encounter Location Date Provider Diagnosis [facility] [place] [address] [place], [place] [id number] 04/02/2024 Juan Gloria Colon cancer scree stephanie Z12.11 ; Diverticulosis of large intestine without perforation or abscess without bleeding K57.30 and Other hemorrhoids K64.8 Assessments Encounter Date Diagnosis (ICD Code) Assessment Notes Treatment Notes Treatment Clinical Notes Section Notes 04/02/2024 Colon cancer screening (ICD-10 - Z12.11) 04/02/2024 Diverticulosis of large intestine without perforation or abscess without bleeding (ICD-10 - K57.30) 04/02/2024 Other hemorrhoids (ICD-10 - K64.8) Plan Of Treatment No Information Progress Notes * AGUSTIN QUINTANA:[birth year] (74 yo F)Acc No.[id number]:04/02/2024 COLON WITH MAC Patient: Landry ROSSIAGUSTIN NGO Provider: Damián Gloria MD :1950 A ge:73 Y S ex:Female Date:04/02/2024 Address:[address] [place] [address] [address], [place], [place] Pcp:Vipul Shahid MD Subjective: * Chief Complaints: * 1 . Screening. * Medical History: Objective: * Vitals: Assessment: * Assessment: 1. C olon cancer screening - Z12.11 (Primary) 2 . D iverticulosis of large intestine without perforation or abscess without bleeding - K57.30 3 . O ther hemorrhoids - K64.8 Plan: * Treatment: * Procedure Codes: G 0121 COLOREC CNCR SCR;COLNSCPY NO HI RSK, 0529F INTRVL 3+YRS PTS CLNSCP DOCD, 0528F RCMND FLW-UP 10 YRS DOCD, Modifiers: 1P * * The named appointment provid er may or may not be the originator of this progress note, and it is not deemed complete until electronically signed by the appointment provider. Sign off status: Pending * Provider: Damián Gloria MD Date: 06/02/2023 Generated for Hyacinth stone/Jono/Richieitting on: 05/11/2024 05:16 PM EST
--- OUTSIDE RECORDS SUMMARY | 2024-05-11 07:15 | XMS_ITS ---
Author Organization [facility] Address [address] [place] [address] Care Team Providers Care Veterinary Surgeon Name Role Phone Vipul Shahid Primary Care Provider Arin Carver [phone] REASON FOR VISIT Transfer to Different Provider Encounters Encounter Location Date Provider Diagnosis [address] [address] 05/11/2024 Arin Angel Plan Of Treatment Next Appt Details Provider Name:Arin rodriguez, 04/26/2025 01:15:00 PM, [address] [address], [place], [address], Progress Notes * Jennifer QUINTANADOB:[birth year] (74 yo F)Acc No.[id number]:05/11/2024 Progress Note Patient: Landry ROSSIJENI Jennifer Provider: Efren Angel DPM :1950 A ge:73 Y S ex:Female Date:05/11/2024 Address:[address] [place] [address], [place] [facility] Pcp:Vipul Shahid Subjective: * Chief Complaints: * 1 . Transfer to Different Provider. * Medical History: Objective: * Vitals: Assessment: Plan: * Treatment: * Images: * The named appointment provid er may or may not be the originator of this progress note, and it is not deemed complete until electronically signed by the appointment provider. Sign off status: Pending * Provider: Efren Angel DPM Date: 0 05/11/2024 Generated for Hyacinth stone/Jono/Rogelio on: 05/11/2024 05:16 PM EST
--- OUTSIDE RECORDS SUMMARY | 2024-12-10 08:30 | XMS_ITS ---
Author Organization [facility] Address [address] [place] [address] Care Team Providers Care Analytics Intern Name Role Phone Vipul Shahid Primary Care Provider Arin Carver [phone] Encounters Encounter Location Date Provider Diagnosis [address] [address] 12/10/2024 Arin Angel Plan Of Treatment Next Appt Details Provider Name:Arin rodriguez, 04/26/2025 01:15:00 PM, [address] [facility], [address] [facility], [place], [address], Progress Notes * Jennifer QUIN[birth year]NADOB:[birth year] (74 yo F)Acc No.[id number]:12/10/2024 Progress Note Patient: Landry ROSSIJENI Jennifer Provider: Efren Angel DPM :1950 A ge:74 Y S ex:Female Date:12/10/2024 Address:[address] [place] [address], [facility] Pcp:Vipul Shahid Subjective: * Chief Complaints: * * Medical History: Objective: * Vitals: Assessment: Plan: * Treatment: * Images: * The named appointment provid er may or may not be the originator of this progress note, and it is not deemed complete until electronically signed by the appointment provider. Sign off status: Pending * Provider: Efren Angel DPM Date: 0 12/10/2024 Generated for Hyacinth Suarezg/Rogelio on: 1 05/11/2024 05:16 PM EST
--- OUTSIDE RECORDS SUMMARY | 2025-02-01 06:15 | XMS_ITS ---
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 Name Role Phone Vipul Shahid Primary Care Provider Arin Carver [phone] Dinero Encounters Encounter Location Date Provider Diagnosis [address] [address] 02/01/2025 Arin Angel Plan Of Treatment Next Appt Details Provider Name:Arin rodriguez, 04/26/2025 01:15:00 PM, [address] [address], [place], [address], Progress Notes * Jennifer QUINTANADOB:[birth year] (74 yo F)Acc No.[id number]:02/01/2025 Progress Note Patient: Landry ROSSIJENI Jennifer Provider: Efren Angel DPM :1950 A ge:74 Y S ex:Female Date:02/01/2025 Address:[address] [place] [id number] Pcp:Vipul Shahid Subjective: * Chief Complaints: * [address] Dinero. * Medical History: Objective: * Vitals: Assessment: Plan: * Treatment: * Images: * The named appointment provid er may or may not be the originator of this progress note, and it is not deemed complete until electronically signed by the appointment provider. Sign off status: Pending * Provider: Efren Angel DPM Date: 0 02/01/2025 Generated for Hyacinth stone/Jono/Rogelio on: 1 05/11/2024 05:15 PM EST
[2025-03-11 16:36] VITALS: BP 140/82; PULSE 67; TEMP 36.2; O2SAT 97; BMI 34.6
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
--- OUTSIDE RECORDS SUMMARY | 2025-03-11 17:16 | XMS_ITS | Patient Health Record ---
Demographics Address [address] [place] [address] [place] Preferred Language en Marital Status Unknown Rastafarian Affiliation Unknown Race Ethnic Group or Author Organization [facility] Address [address] [place] [address] Care Team Providers Care Manager Tax Name Role Phone Vipul Shahid MD Primary Care Provider Juan Clifford [phone] Allergies No Known Allergies Reason For Referral [...] Problem Screening for malignant neoplasm of colon (264102734) Encounter for screening for malignant neoplasm of colon (Z12.11) Active confirmed Problem Diverticular disease of colon (068664050) Diverticulosis of large intestine without perforation or abscess without bleeding (K57.30) Active confirmed Problem Long-term current use of aspirin (615615937112922 ) Aspirin long-term use (Z79.82) Active confirmed Encounters Encounter Location Date Provider Diagnosis [facility] Outpatient [address] [place], [place] [id number] 04/02/2024 Juan Gloria Colon cancer yumie stephanie [...] MEDICARE OF [place] [address] [place] [address] [id number] AGUSTIN QUINTANA Self - patient is the insured MEDICAID OF [facility] [address] [place] [address] [id number] AGUSTIN QUINTANA Self - patient is the insured Medical (General) History Medical History History ICD Code Hypertension Denies FL,DM,CVA,Lung disease,renal dise ase Anxiety/Depression Asthma- Glaucoma- 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 Mancia Surgical History Surgery Date(Month/Year) lumpectomy, right breast--benign
--- OUTSIDE RECORDS SUMMARY | 2025-03-11 17:16 | XMS_ITS | Patient Health Record ---
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 Name Role Phone Vipul Shahid Primary Care Provider Arin Carver Unavailable [phone] Allergies No Known Allergies Reason For Referral [...] atherosclerosis of arteries of lower limbs (disorder) (74012208802634221 ) Unspecified atherosclerosis of eastern sh[place] arteries of extremities, bilateral legs (I70.203) Active confirmed Problem Bilateral atherosclerosis of arteries of lower limbs (disorder) (68729844533933768 ) Atherosclerosis of eastern sh[place] artery of both lower extremities, with unspecified presence of clinical manifestation (I70.203) Active confirmed Q7(A), Q8(2B), Q9(1B,2 C) Vital Signs Height 5ft 3in in 01/18/2025 Weight 186 lbs 01/18/2025 BMI 32.94 kg/m2 01/18/2025 Encounters Encounter Location Date [facility] [address] [place] [id number] 01/18/2025 Arin Angel Tinea unguium B35.1 ; Pain in right toe(s) M79.674 ; Pain in left toe(s) M79.675 ; Skin disease L98.9 ; Unspecified atherosclerosis of eastern sh[place] arteries of extremities, bilateral legs I70.203 ; Xerosis cutis L85.3 and Tinea pedis B35.[address] [address] 05/08/2024 Arin Angel [address] [address] 12/06/2024 Arin Angel Assessments Encounter Date Diagnosis [...] Treatment Pending Test Test Name Order Date [id number]-[id number] SKIN LESIONS, OVER 4 02/10/20 22 38055-JFDL SKIN LESIONS, 2 TO 4 08/11/19 23 [id number]-[id number] SKIN LESIONS, 2 TO 4 04/22/20 20 38555-NCOX SKIN LESIONS, 2 TO 4 08/27/19 21 47748-OCGS SKIN LESIONS, 2 TO 4 11/26/19 21 [id number] SKIN LESIONS, 2 TO 4 02/28/20 21 [id number] OF HEMATOMA/FLUID 023 Next Appt Details Provider Name:Arin rodriguez, 04/26/2025 01:15:00 PM, [address] [facility] [address], [place], [address], Insurance Providers Payer Name Payer Address Payer Phone Subscriber Number Group Number Insured Name Patient Relationship to Insured Coverage Start Date Coverage End Date Medicare National Govt [facility] [address] [place] [address] [id number] Jennifer Avelar Self - patient is the insured Medical (General) History Medical History History ICD Code Anxiety CAD (Cholesterol) Cataracts Depression Diverticulosis Glaucoma High blood pressure Macular degeneration Chicken pox Surgical History Surgery Date(Month/Year) Breast Surgery right ten years ago
== END 2025-03-11 17:07 | disposition home or self-care (01) ==
LOC: HO.HMCH 16:33
PROVIDERS: PCP Internal Medicine; Visit Provider Internal Medicine
DX: I10 Essential (primary) hypertension (principal); F31.61 Bipolar disorder, current episode mixed, mild; E66.9 Obesity, unspecified; Z68.34 Body mass index [BMI] 34.0-34.9, adult; E78.00 Pure hypercholesterolemia, unspecified; R73.02 Impaired glucose tolerance (oral); K76.0 Fatty (change of) liver, not elsewhere classified; R51.9 Headache, unspecified

== ENCOUNTER → 2025-03-11 16:32 | Outpatient (BNVA) | payer MEDICARE, MEDICAID, SELFPAY | PROVIDERS: PCP Internal Medicine; Visit Provider Internal Medicine | DX: I10 Essential (primary) hypertension (principal); E78.00 Pure hypercholesterolemia, unspecified; R73.02 Impaired glucose tolerance (oral); E66.9 Obesity, unspecified; F31.61 Bipolar disorder, current episode mixed, mild; K76.0 Fatty (change of) liver, not elsewhere classified; R51.9 Headache, unspecified; Z13.31 Encounter for screening for depression | CPT/HCPCS: 96127; 99212 ==